=== PATIENT | female | born 1960 | race Caucasian/White ===

== ENCOUNTER 2016-11-08 17:07 | Inpatient (IN) ==
--- NOTE | 2016-11-08 17:17 | Emergency Department Note ---
Disposition Clinical Impression: NSTEMI (non-ST elevated myocardial infarction) Chest pain Qualifiers: Chest pain type: unspecified Qualified Code(s): R07.9 - Chest pain, unspecified Disposition: Admitted As Inpatient Condition: Fair General Adult HPI - General Chief complaint: ED Chest Pain Stated complaint: Chest Pain Time Seen by Provider: 11/08/16 17:12 - Related Data Home Medications Medication Instructions Recorded Confirmed Aspirin 09/15/16 Diclofenac Potassium 09/15/16 Gabapentin 09/15/16 GlipiZIDE XL (24 HR) 09/15/16 Iron 09/15/16 Lasix 09/15/16 Lisinopril 09/15/16 Metformin 09/15/16 Mupirocin 09/15/16 09/15/16 Naproxen 09/15/16 Ranitidine HCl 09/15/16 Victoza 2-Karsten 09/15/16 Zoloft 09/15/16 Previous Rx's Medication Instructions Recorded Fluconazole [Diflucan] 150 mg PO Q72H #2 tablet 09/15/16 Nitrofurantoin (BID) [Macrobid] 100 mg PO BID #14 capsule 09/15/16 Allergies Allergy/AdvReac Type Severity Reaction Status Date / Time Oxycodone AdvReac Anxiety Verified 05/21/15 10:43 Past Medical History - Past Medical History Medical history: Reports: diabetes, fibromyalgia, hyperlipidemia, hypertension, other (spinal stenosis; radiculopathy; sleep obstruction) Psychiatric history: Reports: depression - Social History Smoking Status: Never smoker Smokeless Tobacco Status: No Alcohol use: Reports: none Course Vital Signs Temperature 97.8 F 11/08/16 17:12 Pulse Rate 97 11/08/16 17:12 Respiratory Rate 20 11/08/16 17:12 Blood Pressure 120/62 11/08/16 17:12 O2 Sat by Pulse Oximetry 87 L 11/08/16 17:12 Temperature 97.8 F 11/08/16 17:12 Pulse Rate 93 11/08/16 18:45 Respiratory Rate 18 11/08/16 18:45 Blood Pressure 112/63 11/08/16 18:45 O2 Sat by Pulse Oximetry 94 L 11/08/16 18:45 Oxygen Delivery Oxygen Delivery Nasal Cannula Medical Decision Making - Lab Data Result diagrams: 11/08/16 17:24 11/08/16 17:24 Lab Results 11/08/16 11/08/16 11/08/16 Range/Units 17:24 17:24 17:24 WBC 12.5 H (4.3-11.1) K/mcL RBC 4.79 (3.82-4.97) M/mcL Hgb 13.4 (11.5-15.4) g/dL Hct 42.7 (35.3-44.9) % MCV 89.1 (83.0-100.0) fL MCH 28.0 (28.0-33.3) pg MCHC 31.4 L (31.6-35.5) g/dL RDW 13.2 (11.5-14.5) % Plt Count 236 (140-400) K/mcL MPV 9.1 L (9.4-12.4) fL Immature Gran % 0.4 (0-4) % Seg Neutrophils % 78.7 % Lymphocytes % 13.3 % Monocytes % 6.8 % Eosinophils % 0.5 % Basophils % 0.3 % Neutrophils # 9.9 H (1.6-8.9) K/mcL Lymphocytes # 1.7 (0.6-4.6) K/mcL Monocytes # 0.9 (0.0-1.3) K/mcL Eosinophils # 0.1 (0.0-0.6) K/mcL Basophils # 0.0 (0.0-0.2) K/mcL PT 12.4 H (9.4-12.1) Seconds INR 1.1 APTT 23.5 L (26.0-36.0) Seconds Sodium 138 (136-145) mEq/L Potassium 4.7 H (3.5-4.5) mEq/L Chloride 100 (98-109) mEq/L Carbon Dioxide 25 (19-29) mEq/L BUN 24 H (7-20) mg/dL Creatinine 0.93 (0.57-1.11) mg/dL Est GFR ( Amer) > 60 (> 60) Est GFR (Non-Af Amer) > 60 (> 60) BUN/Creatinine Ratio 26 (6-26) Glucose 274 H (70-99) mg/dL Calculated Osmolality 300 (280-300) Calcium 8.7 (8.6-10.8) mg/dL Troponin I (0-0.03) ng/mL 11/08/16 Range/Units 17:24 WBC (4.3-11.1) K/mcL RBC (3.82-4.97) M/mcL Hgb (11.5-15.4) g/dL Hct (35.3-44.9) % MCV (83.0-100.0) fL MCH (28.0-33.3) pg MCHC (31.6-35.5) g/dL RDW (11.5-14.5) % Plt Count (140-400) K/mcL MPV (9.4-12.4) fL Immature Gran % (0-4) % Seg Neutrophils % % Lymphocytes % % Monocytes % % Eosinophils % % Basophils % % Neutrophils # (1.6-8.9) K/mcL Lymphocytes # (0.6-4.6) K/mcL Monocytes # (0.0-1.3) K/mcL Eosinophils # (0.0-0.6) K/mcL Basophils # (0.0-0.2) K/mcL PT (9.4-12.1) Seconds INR APTT (26.0-36.0) Seconds Sodium (136-145) mEq/L Potassium (3.5-4.5) mEq/L Chloride (98-109) mEq/L Carbon Dioxide (19-29) mEq/L BUN (7-20) mg/dL Creatinine (0.57-1.11) mg/dL Est GFR ( Amer) (> 60) Est GFR (Non-Af Amer) (> 60) BUN/Creatinine Ratio (6-26) Glucose (70-99) mg/dL Calculated Osmolality (280-300) Calcium (8.6-10.8) mg/dL Troponin I 0.06 H* (0-0.03) ng/mL Critical Care Time Critical Care Time: Yes Total Critical Care Time: 30 Attestation: Patient presented with chest pain. EKG reviewed by me. Troponin elevated. Lovenox administered. Admitted to the medicine service. Attestation Statement - Attestation Attestation: I examined this patient and my medical decision-making was reviewed with the [employer] MACHINE FEEDER/PA/Advanced Practice Nurse/Resident Physician. I agree with the documented findings, disposition and treatment plan as described except to the extent set forth below. [id number] time provided Patient presents with chest pain. Family at bedside. Patient appears mildly anxious. EKG obtained and reviewed by me. Patient seen and evaluated in conjunction with resident physician Dr. Swartz 19:00: Troponin returned elevated. I did discuss this case with the admitting nurse practitioner who recommended either heparin or Lovenox. Lovenox, weight based, administered. Patient admitted 19:15: I fielded a call from the radiologist. Pulmonary emboli identified. Patient will be started on weight-based heparin. Disposition unchanged 19:23: Dr. Centeno aware of CTA results. Agreeable with plan. Bed management made aware
--- NOTE | 2016-11-08 17:26 | Emergency Department Note ---
Disposition Clinical Impression: NSTEMI (non-ST elevated myocardial infarction) Chest pain Qualifiers: Chest pain type: unspecified Qualified Code(s): R07.9 - Chest pain, unspecified Disposition: Admitted As Inpatient Condition: Fair Time of Disposition: 19:07 Chest Pain HPI - General Chief Complaint: ED Chest Pain Stated Complaint: Chest Pain Time Seen by Provider: 11/08/16 17:12 Vital Signs Reviewed: Yes Nursing Notes Reviewed: Yes - History of Present Illness HPI Narrative: Mrs. Lincoln, a 55yo female, presents from home via POV with bedside. Chief complaint: Chest pain. Onset 4-5 days ago and intermittent. Described as a sharp stabbing between her sternum and shoulder blades, lasting minutes before spontaneously resolving. Patient believes that breathing exercises help improve or hasten the resolution of her pain when it does occur. Worsened with exertion but present at rest. Patient has had radiation to the left arm intermittently as well as nausea. Denies dyspnea, cough, abdominal pain, vertigo. Patient states she has stress test approximately 2 years ago. PMH: obesity, HTN, HLD, diabetes type 2, current cellulitis, obstructive sleep apnea, fibromyalgia, chronic pain, lumbar stenosis, lumbar spondylosis, lumbar radiculopathy, chronic cervical pain, osteoarthritis, history can be any esophagitis. PSH: back surgery, spinal cord stimulator placed and removed, pain pump. Family histoyory: sister had CO at age of 52-53. - Related Data Home Medications Medication Instructions Recorded Confirmed Aspirin 09/15/16 Diclofenac Potassium 09/15/16 Gabapentin 09/15/16 GlipiZIDE XL (24 HR) 09/15/16 Iron 09/15/16 Lasix 09/15/16 Lisinopril 09/15/16 Metformin 09/15/16 Mupirocin 09/15/16 09/15/16 Naproxen 09/15/16 Ranitidine HCl 09/15/16 Victoza 2-Karsten 09/15/16 Zoloft 09/15/16 Previous Rx's Medication Instructions Recorded Fluconazole [Diflucan] 150 mg PO Q72H #2 tablet 09/15/16 Nitrofurantoin (BID) [Macrobid] 100 mg PO BID #14 capsule 09/15/16 Allergies Allergy/AdvReac Type Severity Reaction Status Date / Time Oxycodone AdvReac Anxiety Verified 05/21/15 10:43 All systems ED: reviewed and negative except as stated. Constitutional: Denies: fever, chills, weakness Eyes: Denies: vision change ENT ED: Denies: congestion Cardiovascular: Reports: chest pain, edema. Denies: palpitations, dyspnea on exertion, orthopnea, syncope Respiratory: Denies: cough, dyspnea, wheezes, hemoptysis Gastrointestinal: Reports: nausea. Denies: abdominal pain, vomiting, diarrhea, constipation Genitourinary: Denies: dysuria Musculoskeletal: Reports: back pain, neck pain, arthralgia, myalgia Integumentary: Reports: lesions (Left lower extremity cellulitis). Denies: rash , abrasion Neurological: Denies: headache, weakness, numbness, paresthesias, confusion, abnormal gait, vertigo Chest Pain PMH - Past Medical History Medical history: Reports: diabetes, fibromyalgia, hyperlipidemia, hypertension, other (spinal stenosis; radiculopathy; sleep obstruction) Psychiatric history: Reports: depression - Social History Smoking Status: Never smoker Alcohol use: Reports: none Physical Exam General: Patient is alert, oriented, and in no acute distress. HEENT: No facial asymmetry. Head is normocephalic and atraumatic. Oral mucosa moist. Trachea midline. Cardiovascular: Heart regular rate and rhythm without clicks, rubs, gallops, or murmurs. No JVD. PMI nondisplaced. Chest pain is not reproducible palpation. Respiratory: Symmetric chest rise with poor respiratory effort. Bilateral breath sounds are clear without wheezing, crackles, or rhonchi. Abdomen: Morbidly obese. Bowel sounds present normoactive x-4 quadrants. Abdomen is soft, nondistended, without guarding, and nontender. We will to assess organomegaly secondary to patient's body habitus. Skin: Warm, dry, intact. Patient is not diaphoretic. Psych: Patient's affect is appropriate for situation. Course Course Narrative: Patient lab work is concerning for elevated troponin. Patient's chest x-ray is negative for acute cardiopulmonary process. Patient's EKG is concerning for frequent PVCs. CTA chest is concerning for multiple PE. Chest CTA 11/08/16 17:19 IMPRESSION: 1. Multilobar pulmonary emboli involving the lobar and segmental branches of the right middle lobe, right lower lobe, left upper lobe, and left lower lobe. No CT evidence of right heart strain. 2. Diffuse heterogeneous attenuation of the lungs bilaterally, possibly secondary to mild air-trapping in the setting of low lung volumes. 3. There is a 7 mm right upper lobe nodule. Please see below for follow-up recommendations. 4. Ground-glass opacity in the right upper lobe, 1.6 x 1.2 cm in size. This can be followed on subsequent exams. 5. Borderline mediastinal adenopathy. This may be reactive but can be followed on subsequent exams. Findings were discussed with Eric Feliciano at 7:14 pm on 11/08/2016. RECOMMENDATIONS: Fleischner Society guidelines for follow-up and management of incidentally detected pulmonary nodules: Single Solid Nodule: Nodule size equals 6-8 mm In a low-risk patient, CT at 6-12 months, then consider CT at 18-24 months. In a high-risk patient, CT at 6-12 months, then CT at 18-24 months. Radiology 2017 http://pubs.[facility]na.org/doi/full/[email or web address]/[email or web address] D/ / 11/08/2016 19:18:22 Antoni Silva MD / chris Interpreting Provider: Antoni Silva MD Throughout her stay, patient denied chest pain. I spoke to the patient, her at bedside, and her multiple friends at bedside regarding her EKG findings, her mildly elevated troponin, and the meaning of the studies. I discussed my concerns about her story but also her EKG and laboratory findings as well as her multiple risks. She agrees for admission for continued workup, monitoring, and risk stratification. She has been accepted by the medicine service. Neither she nor her had any additional questions at this time. I spoke with the patient, her , and family bedside regarding her multiple PEs. I discussed the need for a heparin drip as well as the risks thereof. They agree for continued management and therapy. Patient is oriented accepted to the hospitalist service; he is been updated with the new findings and treatment strategy. Vital Signs Temperature 97.8 F 11/08/16 17:12 Pulse Rate 97 11/08/16 17:12 Respiratory Rate 20 11/08/16 17:12 Blood Pressure 120/62 11/08/16 17:12 O2 Sat by Pulse Oximetry 87 L 11/08/16 17:12 Temperature 97.9 F 11/08/16 20:48 Pulse Rate 95 11/08/16 20:48 Respiratory Rate 18 11/08/16 20:48 Blood Pressure 100/68 11/08/16 20:48 O2 Sat by Pulse Oximetry 92 L 11/08/16 20:48 Oxygen Delivery Oxygen Delivery Nasal Cannula Chest Pain - Medical Records Medical records reviewed: Yes I reviewed the patient's medical records. - Lab Data Lab results reviewed: Yes I reviewed the patient's lab results. Result diagrams: 11/08/16 17:24 11/08/16 17:24 Lab Results 11/08/16 11/08/16 11/08/16 Range/Units 17:24 17:24 17:24 WBC 12.5 H (4.3-11.1) K/mcL RBC 4.79 (3.82-4.97) M/mcL Hgb 13.4 (11.5-15.4) g/dL Hct 42.7 (35.3-44.9) % MCV 89.1 (83.0-100.0) fL MCH 28.0 (28.0-33.3) pg MCHC 31.4 L (31.6-35.5) g/dL RDW 13.2 (11.5-14.5) % Plt Count 236 (140-400) K/mcL MPV 9.1 L (9.4-12.4) fL Immature Gran % 0.4 (0-4) % Seg Neutrophils % 78.7 % Lymphocytes % 13.3 % Monocytes % 6.8 % Eosinophils % 0.5 % Basophils % 0.3 % Neutrophils # 9.9 H (1.6-8.9) K/mcL Lymphocytes # 1.7 (0.6-4.6) K/mcL Monocytes # 0.9 (0.0-1.3) K/mcL Eosinophils # 0.1 (0.0-0.6) K/mcL Basophils # 0.0 (0.0-0.2) K/mcL PT 12.4 H (9.4-12.1) Seconds INR 1.1 APTT 23.5 L (26.0-36.0) Seconds Sodium 138 (136-145) mEq/L Potassium 4.7 H (3.5-4.5) mEq/L Chloride 100 (98-109) mEq/L Carbon Dioxide 25 (19-29) mEq/L BUN 24 H (7-20) mg/dL Creatinine 0.93 (0.57-1.11) mg/dL Est GFR ( Amer) > 60 (> 60) Est GFR (Non-Af Amer) > 60 (> 60) BUN/Creatinine Ratio 26 (6-26) Glucose 274 H (70-99) mg/dL Calculated Osmolality 300 (280-300) Calcium 8.7 (8.6-10.8) mg/dL Troponin I (0-0.03) ng/mL 11/08/16 Range/Units 17:24 WBC (4.3-11.1) K/mcL RBC (3.82-4.97) M/mcL Hgb (11.5-15.4) g/dL Hct (35.3-44.9) % MCV (83.0-100.0) fL MCH (28.0-33.3) pg MCHC (31.6-35.5) g/dL RDW (11.5-14.5) % Plt Count (140-400) K/mcL MPV (9.4-12.4) fL Immature Gran % (0-4) % Seg Neutrophils % % Lymphocytes % % Monocytes % % Eosinophils % % Basophils % % Neutrophils # (1.6-8.9) K/mcL Lymphocytes # (0.6-4.6) K/mcL Monocytes # (0.0-1.3) K/mcL Eosinophils # (0.0-0.6) K/mcL Basophils # (0.0-0.2) K/mcL PT (9.4-12.1) Seconds INR APTT (26.0-36.0) Seconds Sodium (136-145) mEq/L Potassium (3.5-4.5) mEq/L Chloride (98-109) mEq/L Carbon Dioxide (19-29) mEq/L BUN (7-20) mg/dL Creatinine (0.57-1.11) mg/dL Est GFR ( Amer) (> 60) Est GFR (Non-Af Amer) (> 60) BUN/Creatinine Ratio (6-26) Glucose (70-99) mg/dL Calculated Osmolality (280-300) Calcium (8.6-10.8) mg/dL Troponin I 0.06 H* (0-0.03) ng/mL - Radiology Data Radiology results reviewed: Yes I reviewed the patient's radiology results. - EKG Data EKG attestation: Yes I reviewed and interpreted this EKG. EKG results narrative: EKG dated 2016 at 17:17 interpreted as sinus tachycardia with a rate of 112. Short LA of 113. QRS 97, QT/QTC 337/403. Normal axis. Multifocal PVCs. Baseline artifact. Previous EKG dated 11/03/2016 does not show PVCs. Heart Score - Score History: Slightly Suspicious EKG: Non Specific repolarisation Disturbance Age: 45-65 Risk Factors: Equal/Greater than 3 risk factor or history of atherosclerotic disease Troponin: Less than normal limit HEART Score Total: 4
[2016-11-08 17:32] LABS: Basophils % 0.3 %; Eosinophils # 0.1 K/mcL (0.0-0.6); Eosinophils % 0.5 %; Hematocrit 42.7 % (35.3-44.9); Hemoglobin 13.4 g/dL (11.5-15.4); Immature Granulocytes % 0.4 % (0-4); Lymphocytes # 1.7 K/mcL (0.6-4.6); Lymphocytes % 13.3 %; Mean Corpuscular HGB Conc 31.4 g/dL (31.6-35.5); Mean Corpuscular Volume 89.1 fL (83.0-100.0); Mean Platelet Volume 9.1 fL (9.4-12.4); Monocytes # 0.9 K/mcL (0.0-1.3); Monocytes % 6.8 %; Neutrophils # 9.9 K/mcL (1.6-8.9); Platelet Count 236 K/mcL (140-400); Red Blood Count 4.79 M/mcL (3.82-4.97); Red Cell Distribution Width 13.2 % (11.5-14.5); Segmented Neutrophils % 78.7 %
[2016-11-08 17:39] LABS: INR 1.1; Prothrombin Time 12.4 Seconds (9.4-12.1)
[2016-11-08 17:41] LABS: Activated Partial Thrombo Time 23.5 Seconds (26.0-36.0)
[2016-11-08 17:46] LABS: BUN/Creatinine Ratio 26 (6-26); Blood Urea Nitrogen 24 mg/dL (7-20); Calcium 8.7 mg/dL (8.6-10.8); Carbon Dioxide 25 mEq/L (19-29); Chloride 100 mEq/L (98-109); Glucose 274 mg/dL (70-99); Osmolality,Calculated 300 (280-300); Potassium 4.7 mEq/L (3.5-4.5); Sodium 138 mEq/L (136-145); eGFR For African Americans > 60 (> 60); eGFR For Non-African Americans > 60 (> 60)
[2016-11-08] MEDS ORDERED: Aspirin 325 MG TABLET PO ONE (17:58)
[2016-11-08] MEDS ORDERED: *HR* Enoxaparin 150 MG/ML SYRINGE SQ STA (19:00)
[2016-11-08] MEDS ORDERED: *HR* Heparin 5,000 UNIT/ML VIAL IVP PRN ×2 (19:15→19:29)
[2016-11-08] MEDS ORDERED: Heparin 25,000 UNIT/500 ML D5W 25,000 UNIT/500 ML MLS IVC SCH (19:15)
[2016-11-08] MEDS ORDERED: *HR* Heparin 5,000 UNIT/ML VIAL IVP ONE (19:29)
[2016-11-08] MEDS: Heparin 25,000 UNIT/500 ML D5W 25,000 UNIT/500 ML MLS IVC SCH (19:46)
[2016-11-08] MEDS ORDERED: Acetaminophen 325 MG TABLET PO PRN (21:47)
[2016-11-08] MEDS ORDERED: Naloxone 0.4 MG/ML INJ IVP PRN (21:47)
[2016-11-08] MEDS ORDERED: Ondansetron 4 MG/2 ML VIAL IVP PRN (21:47)
[2016-11-08] MEDS ORDERED: D5% in Water 1,000 ML IV PRN (22:00)
[2016-11-08] MEDS ORDERED: *HR* Dextrose 50 % in Water (Syg) 50 ML SYRINGE IVP PRN (22:00)
[2016-11-08] MEDS ORDERED: Dextrose Gel 15 GM PO PRN ×2 (22:00)
--- NOTE | 2016-11-08 22:00 | Internal Med History&Physical ---
Date of Encounter: 11/08/16 Time of Encounter: 21:58 Assessment and Plan (1) Pulmonary emboli Current visit: Yes Status: Acute 1 patient has been experiencing increasing chest pain as well as shortness of breath for past [address] scan of her chest did reveal multilobar pulmonary emboli involving lobar and segmental branches of the right middle lobe right lower lobe left upper lobe and left lower lobe with no CT evidence of right heart strain. We will continue with heparin drip per protocol 2 last echo was in 2014 with EF of 60% we will obtain cardiac echo 3 continuous cardiac monitoring 4 oxygen as needed and maintain SPO2 greater than 92% 5 patient was on heparin in the ER. Will obtain thrombophilia workup as outpatient Qualifiers: Pulmonary embolism type: other Chronicity: acute Acute cor pulmonale presence: without acute cor pulmonale Qualified Code(s): I26.99 - Other pulmonary embolism without acute cor pulmonale (2) Elevated troponin Current visit: Yes Status: Acute 1 patient presented with chest pain or shortness of breath. First cardiac troponin was elevated at 0.06. CT did reveal a pulmonary emboli, suspect this is the cause of elevated troponin. However we will continue to trend cardiac troponin 2 she is on heparin drip will continue 3 we will obtain cardiac echo 4 continuous cardiac monitoring (3) Diabetes mellitus Current visit: Yes Status: Acute 1 patient is on oral antidiabetics. We will hold for now place on Accu-Cheks before meals and at bedtime with sliding scale as needed 2 diabetic diet Qualifiers: Diabetes mellitus type: type 2 Diabetes mellitus complication status: without complication Diabetes mellitus jail insulin use: without jail use Qualified Code(s): E11.9 - Type 2 diabetes mellitus without complications (4) HTN (hypertension) Current visit: Yes Status: Acute 1 we will continue with home medications: As maintain systolic less than 140 Qualifiers: Hypertension type: essential hypertension Qualified Code(s): I10 - Essential (primary) hypertension (5) Chronic radicular lumbar pain Current visit: Yes Status: Acute 1 patient has chronic back pain we will continue with home pain medications as well as patient's pain pump Internal Medicine - H&P: HPI Chief complaint: SOB,CP Admitted From: Emergency Dept Plans for Post Hospital Care: Home History of present illness: Ms. Lincoln is a 55 year old female past medical history of diabetes hypertension hyperlipidemia obstructive sleep apnea fibromyalgia and chronic pain osteoarthritis pain pump current cellulitis. According to the patient for the past 4 days she has been experiencing sharp stabbing pain originating between her shoulder blades radiating to her mid sternal chest. The pain is 10 over 10 associated symptoms of shortness of breath nausea diaphoresis. The pain is aggravated by exertion and relieved with rest. She denies fevers chills abdominal pain diarrhea or vertigo or palpitations. This morning the patient, and she immediately experienced the pain however it continued even with rest she went to the ER. According to ER records first cardiac troponin was 0.06 EKG did demonstrate frequent PVCs chest x-ray was negative for any acute coronary process CTA was obtained which did reveal multilobar pulmonary emboli involving lobar and segmental branches of the right middle lobe right lower lobe left upper lobe and left lower lobe. At that time there is no CT evidence of right heart strain. The patient was subsequently started on IV heparin and has been admitted for further workup and evaluation. Presently the patient denies any chest pain or discomfort. According to patient she has been much more mobile recently because she has been moving to a new home. She normally is very sedentary due to her history of chronic pain. She denies any injuries to her lower extremities however she does have an active cellulitis infection patient is nonsmoker she denies any thrombophilla or family hx of thrombophillia. She does have lower extremity edema which she states is chronic there are no palpable cords She did have an echo and stress test 2015 stress was negative for any ischemic or infarct echo EF of 60% with moderate diastolic dysfunction. Presently she is hemodynamically stable I reviewed this case with Dr. Centeno who agrees with plan Past Med Surg Social Fam HX - Past Medical History Medical history: diabetes, fibromyalgia, hyperlipidemia, hypertension, other ( spinal stenosis; radiculopathy; sleep obstruction) Psychiatric history: depression - Past Surgical History Surgical History: other - Social History Smoking Status: Never smoker Smokeless Tobacco Status: No Alcohol use: none Drug use: none - Family History Father Name: Roosevelt Lee Age at : 72 Cause of : massive heart attack Internal Medicine - H&P: Meds Aspirin 09/15/16 [History] Diclofenac Potassium 09/15/16 [History] Fluconazole [Diflucan] 150 mg PO Q72H #2 tablet 09/15/16 [Rx] Gabapentin 09/15/16 [History] GlipiZIDE XL (24 HR) 09/15/16 [History] Iron 09/15/16 [History] Lasix 09/15/16 [History] Lisinopril 09/15/16 [History] Metformin 09/15/16 [History] Mupirocin 09/15/16 [History] Naproxen 09/15/16 [History] Nitrofurantoin (BID) [Macrobid] 100 mg PO BID #14 capsule 09/15/16 [Rx] Ranitidine HCl 09/15/16 [History] Victoza 2-Karsten 09/15/16 [History] Zoloft 09/15/16 [History] Allergies Oxycodone Adverse Reaction (Verified 05/21/15 10:43) Anxiety All Systems PM: A 10-system review of systems was performed and is negative for pertinent findings except as documented above in the HPI. - Constitutional Constitutional: fatigue - Cardiovascular Cardiovascular ROS IM: chest pain, dyspnea on exertion, edema - Respiratory Respiratory: dyspnea on exertion - Gastrointestinal Gastrointestinal: no abdominal pain, no diarrhea, no hematemesis, no hematochezia, no melena, no nausea, no vomiting - Genitourinary Genitourinary: no change in urinary stream, no dysuria, no flank pain, no hematuria - Musculoskeletal Musculoskeletal ROS IM: arthralgias, back pain, myalgias - Neurological Neurological ROS: no confusion, no convulsions, no focal weakness, no numbness, no tingling, no tremor(s) - Constitutional Vitals: Temp Pulse Resp BP Pulse Ox 97.9 F 95 18 100/68 92 L 11/08/16 20:48 11/08/16 20:48 11/08/16 20:48 11/08/16 20:48 11/08/16 20:48 General appearance: Present: A&O X 3, morbidly obese - Head Head exam: Present: atraumatic, normocephalic - Eye Eye exam: Present: PERRL, conjuntiva pink, sclera anicteric Pupils: Present: PERRL - Neck Neck exam general surgery: Present: supple, trachea midline. Absent: lymphadenopathy - Respiratory Respiratory exam: Present: CTAB. Absent: accessory muscle use, rales, rhonchi, wheezes - Cardiovascular Cardiovascular exam: Present: RRR, +S1, +S2. Absent: diastolic murmur, gallop, rubs, systolic murmur - GI/Abdominal GI/Abdominal exam: Present: normal bowel sounds, soft, no peritoneal signs. Absent: distended, tenderness - Extremities Exam Extremities exam: Present: pedal edema, warm, radial pulses palpable and symetrical. Absent: calf tenderness, cyanotic - Neurological Exam Neurological exam: Present: CN II-XII intact, oriented X3, no focal deficits. Absent: pronater drift, facial droop, speech deficit - Skin Skin exam: Present: dry, intact Internal Med - H&P Results - Labs CBC & Chem 7: 11/08/16 17:24 11/08/16 17:24 - Diagnostic Studies Other Images Additional comments: Chest CTA 11/08/16 17:19 IMPRESSION: 1. Multilobar pulmonary emboli involving the lobar and segmental branches of the right middle lobe, right lower lobe, left upper lobe, and left lower lobe. No CT evidence of right heart strain. 2. Diffuse heterogeneous attenuation of the lungs bilaterally, possibly secondary to mild air-trapping in the setting of low lung volumes. 3. There is a 7 mm right upper lobe nodule. Please see below for follow-up recommendations. 4. Ground-glass opacity in the right upper lobe, 1.6 x 1.2 cm in size. This can be followed on subsequent exams. 5. Borderline mediastinal adenopathy. This may be reactive but can be followed on subsequent exams. Findings were discussed with Eric Feliciano at 7:14 pm on 11/08/2016. RECOMMENDATIONS: Fleischner Society guidelines for follow-up and management of incidentally detected pulmonary nodules: Single Solid Nodule: Nodule size equals 6-8 mm In a low-risk patient, CT at 6-12 months, then consider CT at 18-24 months. In a high-risk patient, CT at 6-12 months, then CT at 18-24 months. Radiology 2017 http://pubs.[facility].org/doi/full/10.1148/[email or web address] D/ / 11/08/2016 19:18:22 Antoni Silva MD / chris Interpreting Provider: Antoni Silva MD
[2016-11-08 23:30] LABS: Magnesium 1.4 mg/dL (1.6-2.6)
[2016-11-08] MEDS: Insulin LISPRO 300 UNITS/3 ML VIAL SQ SCH (23:45)
--- NOTE | 2016-11-09 00:04 | Event Note ---
Date of Encounter: 11/09/16 Time of Encounter: 00:02 Patient seen and examined with practitioner. Patient presents with solid masses pulmonary embolism. She is hemodynamically stable. Suspect sedentary life is the cause. She says that she is sitting down approximately 50% of the time. She is morbidly obese with hip problems requiring injections. She had an injection last month. Patient has been started on heparin drip. Because provoking factor is not very clear with asking hematology/oncology to see the patient to decide on duration of anticoagulation therapy. Patient is up-to- date with her screening. Last mammogram, Pap smear, colonoscopy were unremarkable.
[2016-11-09 00:57] LABS: Basophils # 0.1 K/mcL (0.0-0.2); Basophils % 0.4 %; Eosinophils % 0.1 %; Hematocrit 40.4 % (35.3-44.9); Hemoglobin 12.4 g/dL (11.5-15.4); Immature Granulocytes % 0.3 % (0-4); Immature Platelets 3.2 % (1.1-6.1); Lymphocytes # 2.9 K/mcL (0.6-4.6); Lymphocytes % 23.3 %; Mean Corpuscular HGB Conc 30.7 g/dL (31.6-35.5); Mean Corpuscular Hemoglobin 27.4 pg (28.0-33.3); Mean Corpuscular Volume 89.4 fL (83.0-100.0); Mean Platelet Volume 9.2 fL (9.4-12.4); Monocytes # 0.7 K/mcL (0.0-1.3); Monocytes % 5.8 %; Neutrophils # 8.6 K/mcL (1.6-8.9); Platelet Count 248 K/mcL (140-400); Red Blood Count 4.52 M/mcL (3.82-4.97); Red Cell Distribution Width 13.4 % (11.5-14.5); Segmented Neutrophils % 70.1 %
[2016-11-09 01:12] LABS: BUN/Creatinine Ratio 27 (6-26); Blood Urea Nitrogen 22 mg/dL (7-20); Calcium 8.4 mg/dL (8.6-10.8); Carbon Dioxide 25 mEq/L (19-29); Chloride 102 mEq/L (98-109); Chol/HDL Ratio 3.5 (0-4.9); Cholesterol 109 mg/dL (< 200); Glucose 183 mg/dL (70-99); HDL Cholesterol 31 mg/dL (40-59); Osmolality,Calculated 294 (280-300); Potassium 4.2 mEq/L (3.5-4.5); Sodium 138 mEq/L (136-145); eGFR For African Americans > 60 (> 60); eGFR For Non-African Americans > 60 (> 60)
[2016-11-09 01:21] LABS: LDL Cholesterol,Calculated 53 mg/dL (0-99); Triglycerides 124 mg/dL (< 150)
[2016-11-09] MEDS: Aspirin 81 MG TAB.CHEW PO SCH (08:10)
[2016-11-09] MEDS: Gabapentin 400 MG CAPSULE PO SCH ×3 (08:10→21:19)
[2016-11-09] MEDS: Insulin LISPRO 300 UNITS/3 ML VIAL SQ SCH ×4 (08:11→21:20)
[2016-11-09] MEDS: Famotidine 20 MG TABLET PO SCH ×2 (08:11→17:01)
[2016-11-09] MEDS: Furosemide 40 MG TABLET PO SCH (08:11)
[2016-11-09] MEDS: *HR* Heparin 5,000 UNIT/ML VIAL IVP PRN (08:14)
[2016-11-09] MEDS: IRON PO SCH ×2 (10:51→21:20)
[2016-11-09] MEDS: Heparin 25,000 UNIT/500 ML D5W 25,000 UNIT/500 ML MLS IVC SCH (10:51)
--- NOTE | 2016-11-09 11:06 | Internal Med Progress Note ---
Date of Encounter: 11/09/16 Time of Encounter: 09:35 - Assessment and plan (1) Pulmonary emboli Current Visit: Yes Status: Acute Assessment and plan: Sub-massive without evidence of RH strain CT scan of her chest did reveal multilobar pulmonary emboli involving lobar and segmental branches of the right middle lobe right lower lobe left upper lobe and left lower lobe with no CT evidence of right heart strain. We will continue with heparin drip per protocol Slightly elevated troponin on admission 006, now 0.03 today, possibly from demand ischemia ECHO 2014 with with EF of 60% Follow repeat ECHO Continue heparin drip Transition to po once able to confirm insurance and co-pays , patient prefers CAROLE Continue telemetry and pulse Ox Qualifiers: Pulmonary embolism type: other Chronicity: acute Acute cor pulmonale presence: without acute cor pulmonale Qualified Code(s): I26.99 - Other pulmonary embolism without acute cor pulmonale (2) Elevated troponin Current Visit: Yes Status: Resolved Assessment and plan: Resolved (3) HTN (hypertension) Current Visit: Yes Status: Chronic Assessment and plan: Controlled, continue current meds Qualifiers: Hypertension type: essential hypertension Qualified Code(s): I10 - Essential (primary) hypertension (4) Diabetes mellitus Current Visit: Yes Status: Chronic Assessment and plan: Diet controlled supposedly Continue sliding scale Check A1C Qualifiers: Diabetes mellitus type: type 2 Diabetes mellitus complication status: without complication Diabetes mellitus long term care phlebotomist insulin use: without chcf use Qualified Code(s): E11.9 - Type 2 diabetes mellitus without complications - Subjective Interval history: Seen and examined at bedside Denies new complains Slight improvement in SOB 55 Y/O F with Morbid Obesity, HTN, DM Admitted and managed for sub-massive PE without right heart strain - Constitutional Vitals: Temp Pulse Resp BP Pulse Ox 97.5 F L 95 18 156/96 92 L 11/09/16 07:43 11/09/16 07:43 11/09/16 07:43 11/09/16 07:43 11/09/16 07:43 General appearance: Present: A&O X 3, morbidly obese, no acute distress - Head Head exam: Present: atraumatic, normocephalic - Eye Eye exam: Present: PERRL, conjuntiva pink, sclera anicteric Pupils: Present: PERRL - Neck Neck exam general surgery: Present: supple, trachea midline. Absent: lymphadenopathy - Respiratory Respiratory exam: Present: CTAB. Absent: accessory muscle use, rales, rhonchi, wheezes - Cardiovascular Cardiovascular exam: Present: RRR, +S1, +S2. Absent: diastolic murmur, gallop, rubs, systolic murmur - GI/Abdominal GI/Abdominal exam: Present: normal bowel sounds, soft, no peritoneal signs. Absent: distended, tenderness - Extremities Exam Additional comments: Chronic venous congestion with stasis dermatitis, no pedal edema - Neurological Exam Neurological exam: Present: alert, CN II-XII intact, oriented X3, no focal deficits. Absent: pronater drift, facial droop, speech deficit - Skin Skin exam: Present: dry Internal Medicine: Result - Labs CBC & Chem 7: 11/09/16 00:30 11/09/16 00:30 Labs: Short CBC 11/09/16 Range/Units 00:30 WBC 12.3 H (4.3-11.1) K/mcL Hgb 12.4 (11.5-15.4) g/dL Hct 40.4 (35.3-44.9) % Plt Count 248 (140-400) K/mcL Neutrophils # 8.6 (1.6-8.9) K/mcL BMP 11/09/16 00:30 Sodium 138 Potassium 4.2 Chloride 102 Carbon Dioxide 25 BUN 22 H Creatinine 0.82 Glucose 183 H Calcium 8.4 L Cardiac Enzymes 11/09/16 11/09/16 Range/Units 00:30 06:33 Troponin I 0.05 H* 0.03 (0-0.03) ng/mL - ABG Interpretation ABG results: PT/INR, D-dimer PT 12.4 Seconds (9.4-12.1) H 11/08/16 17:24 Consult Discharge Plan - Plan Referrals: Kwabena Mattson MD [Primary Care Provider] - (web request sent on11/09/16)
--- NOTE | 2016-11-09 21:20 | ECHO - Doppler Report ---
Echocardiogram Name: Mirella Lincoln Date of Study: 11/09/2016 Date: 1960 Ht: 63.0 in Medical Record#: [id number] Age: 55 Wt: 287.0 lb Gender: Female BSA: 2.25 Order #: [id number] Location: [facility] Room #: 2A33 Reading Physician: Mandeep Colunag DO, JULIANN, BANG MAGALLANES Loop Drier Operator: Leilani Gresham RDCS Ordering Physician: Charito Weir CNP Primary Physician: Kwabena Mattson M.D. Indications: Pulmonary embolus Impressions: Technically sub-optimal due to body habitus. LVEF 60%. Normal LV chamber size, wall thickness and function. Mild left ventricular diastolic dysfunction. Atypical septal motion of unclear etiology. Mildly dilated right ventricle with normal appearing function. Mild pulmonary hypertension. No significant valvular dysfunction. Left Ventricular Wall Motion: Rest Echo Findings All wall segments showed normal motion. Findings: Study Quality * Technically sub-optimal due to body habitus. ECG Findings * Normal sinus rhythm. Left Ventricle * LVEF 60%. * Normal LV chamber size, wall thickness and function. * Mild left ventricular diastolic dysfunction. * Atypical septal motion of unclear etiology. Right Ventricle * Mildly dilated right ventricle with normal appearing function. Left Atrium * Normal left atrial size. Right Atrium * Moderately dilated right atrium. Interatrial Septum * Interatrial septum not well evaluated. Aortic Valve * Aortic valve not well visualized. * No aortic stenosis. * No aortic regurgitation. Mitral Valve * Normal mitral valve structure and function. * No mitral regurgitation. * No mitral stenosis. Tricuspid Valve * Normal tricuspid valve structure and function. * Trace tricuspid regurgitation. * Mild pulmonary hypertension. Pulmonic Valve * Pulmonic valve is not well visualized. * No pulmonic regurgitation. Aorta * Normally sized aortic root. Pericardium * The pericardium appears normal. IVC * Normal IVC dimensions and inspiratory collapse. Pulmonary Artery * Pulmonary artery not well visualized. History Hypertension Diabetes Hypercholesteremia Family History of CAD 05-16-15 a Previous Echo was performed. Measurements: BP: 117/ 74 2D Normal Values RVIDd: 3.30 cm <2.7 cm IVSd: .90 cm 0.6 - 1.0 cm LVIDd: 5.00 cm 3.7 - 5.6 cm LVPWd: 1.00 cm 0.6 - 1.1 cm LVIDs: 3.60 cm 1.5 - 3.6 cm AO: 2.70 cm < 4.0 cm LA: 3.90 cm 2.0 - 4.0cm %FS: 28.00 cm >25 % LVOT Diam: 1.90 cm LA volume: 42 Mitral Valve Peak E:.68 m/sec Peak A:.71 m/sec E/A Ratio:1 Peak E' Lat [place]:8.29 cm/s Peak E' Med [place]:10 cm/s E/E' Lat Ratio:8.2 E/E' Med Ratio:6.8 Tricuspid Valve TV Regurg Peak Grad: 34.00mmHg TV Regurg Peak [place]: 2.92m/sec Updated by Mandeep Colunga DO, JULIANN, SONA, BANG on 11/09/2016 9:14:59 PM electronically signed on 11/09/2016 9:15:54 PM with status of Final Wall Motion Mosher: 1=Normal, 2=Hypokinesis, 3=Akinesis, 4=Dyskinesis, 5=Aneurysmal, 6=Hyperkinetic, X=Not Visualized (Blank)=Missing
[2016-11-10] MEDS: *HR* Heparin 5,000 UNIT/ML VIAL IVP PRN (00:06)
[2016-11-10] MEDS: Heparin 25,000 UNIT/500 ML D5W 25,000 UNIT/500 ML MLS IVC SCH (03:47)
[2016-11-10 05:32] LABS: Basophils % 0.3 %; Hematocrit 37.1 % (35.3-44.9); Hemoglobin 11.6 g/dL (11.5-15.4); Immature Granulocytes % 0.3 % (0-4); Lymphocytes # 2.5 K/mcL (0.6-4.6); Lymphocytes % 24.7 %; Mean Corpuscular HGB Conc 31.3 g/dL (31.6-35.5); Mean Corpuscular Volume 89.4 fL (83.0-100.0); Mean Platelet Volume 9.1 fL (9.4-12.4); Monocytes # 0.7 K/mcL (0.0-1.3); Monocytes % 6.9 %; Neutrophils # 6.7 K/mcL (1.6-8.9); Platelet Count 187 K/mcL (140-400); Red Blood Count 4.15 M/mcL (3.82-4.97); Red Cell Distribution Width 13.5 % (11.5-14.5); Segmented Neutrophils % 67.8 %
[2016-11-10 05:46] LABS: BUN/Creatinine Ratio 23 (6-26); Blood Urea Nitrogen 19 mg/dL (7-20); Calcium 8.3 mg/dL (8.6-10.8); Carbon Dioxide 30 mEq/L (19-29); Chloride 101 mEq/L (98-109); Glucose 187 mg/dL (70-99); Osmolality,Calculated 295 (280-300); Potassium 4.2 mEq/L (3.5-4.5); Sodium 139 mEq/L (136-145); eGFR For African Americans > 60 (> 60); eGFR For Non-African Americans > 60 (> 60)
[2016-11-10] MEDS: Aspirin 81 MG TAB.CHEW PO SCH (08:23)
[2016-11-10] MEDS: Gabapentin 400 MG CAPSULE PO SCH ×3 (08:23→22:29)
[2016-11-10] MEDS: Famotidine 20 MG TABLET PO SCH ×2 (08:24→15:59)
[2016-11-10] MEDS: Furosemide 40 MG TABLET PO SCH (08:24)
[2016-11-10] MEDS: Insulin LISPRO 300 UNITS/3 ML VIAL SQ SCH ×4 (08:25→22:29)
[2016-11-10] MEDS: IRON PO SCH ×2 (09:02→22:30)
--- NOTE | 2016-11-10 09:52 | Discharge Summary ---
Date of Encounter: 11/10/16 Time of Encounter: 09:52 - Discharge Diagnosis (1) Pulmonary emboli Priority: Primary Status: Acute Qualifiers: Pulmonary embolism type: other Chronicity: acute Acute cor pulmonale presence: without acute cor pulmonale Qualified Code(s): I26.99 - Other pulmonary embolism without acute cor pulmonale (2) Elevated troponin Priority: Secondary Status: Resolved (3) HTN (hypertension) Priority: Secondary Status: Chronic Qualifiers: Hypertension type: essential hypertension Qualified Code(s): I10 - Essential (primary) hypertension (4) Diabetes mellitus Priority: Secondary Status: Chronic Qualifiers: Diabetes mellitus type: type 2 Diabetes mellitus complication status: without complication Diabetes mellitus custodial insulin use: without continuous churn buttermaker use Qualified Code(s): E11.9 - Type 2 diabetes mellitus without complications - Discharge Medications Prescriptions: Rivaroxaban [Xarelto] 15 mg PO BID #42 tablet Rivaroxaban [Xarelto] 20 mg PO DAILY #30 tablet Home Medications: Aspirin [Lo-Dose Aspirin EC] 81 mg PO DAILY 09/15/16 [History] Ferrous Sulfate [Iron] 325 mg PO DAILY 09/15/16 [History] Furosemide [Lasix] 40 mg PO DAILY 09/15/16 [History] Gabapentin [Neurontin] 400 mg PO TID 09/15/16 [History] GlipiZIDE [Glipizide Xl] 5 mg PO DAILY 09/15/16 [History] Liraglutide [Victoza 2-Karsten] 1.2 mg SQ QWEEK 09/15/16 [History] Lisinopril [Zestril] 2.5 mg PO DAILY 09/15/16 [History] Metformin [Glucophage] 1,000 mg PO BID 09/15/16 [History] Ranitidine HCl [Acid Drum Barker Operator] 150 mg PO BID 09/15/16 [History] Sertraline [Zoloft] 50 mg PO DAILY 09/15/16 [History] Diclofenac Sodium [Voltaren] 50 mg PO TID 11/09/16 [History] Meloxicam [Mobic] 15 mg PO DAILY 11/09/16 [History] Rivaroxaban [Xarelto] 15 mg PO BID #42 tablet 11/10/16 [Rx] Rivaroxaban [Xarelto] 20 mg PO DAILY #30 tablet 11/10/16 [Rx] Allergies/Adverse Reactions: Allergies adhesive tape Allergy (Verified 11/09/16 10:40) Rash Oxycodone Adverse Reaction (Verified 05/21/15 10:43) Anxiety Procedures/tests Complete & Pending: Procedures Performed prior 72 hours Category Date Time Status EV echocardiogram Routine Y 11/08/16 21:53 Completed Date of admission: 11/08/16 21:47 Primary care physician: Kwabena Mattson MD Consults: 11/08/16 23:02 Consult to Oncology [CONS] Routine Consulting Provider: On[facility] Reason for Consult: New PE requiring anticoagulations Time Notified: 23:04 Call Completed: No 11/10/16 07:57 Consult to Case Management [CONS] Stat Comment: For oral anticoagulation-Xarelto... Discharging clinician: Ariel Welsh Anticipated date of discharge: 11/10/16 - Patient Status Disposition: Home, Self-Care Condition: Fair Functional capacity at discharge: independent ambulation Overall status at discharge: patient is progressing back to baseline - Discharge Instructions Follow Up With: Kwabena Mattson MD [Primary Care Provider] - (web request sent on11/09/16) - Diet and Activity Activity: resume usual activities as tolerated, wear oxygen at all times Diet: diabetic diet, low salt diet Interval History: See below Hospital course: Ms. Lincoln is a 55 year old female 55 Y/O F with Morbid Obesity, HTN, DM She presented with SOB Findings on admission significant for tachypnea, tachycardia and hypoxia CT scan of her chest did reveal multilobar pulmonary emboli involving lobar and segmental branches of the right middle lobe right lower lobe left upper lobe and left lower lobe with no CT evidence of right heart strain. She had leukocytosis which was possibly related to stress, her WBC has resolved and back to baseline without treatment Slightly elevated troponin on admission 006, decreased to 0.03 today, possibly from demand ischemia ECHO showed LVEF of 60%, normal LV size, wall thickness and function, mild LVDD , Atypical septal motion of unclear etiology, mildy dilated RV with normal appearing function, no significant valvular dysfunction, mild Pulm HTN. She was started on heparin drip and continued until discharge. CLAIMS ADJUSTER SUPERVISOR has confirmed copay of Xarelto with patient, she is discharged home on Xarelto, which she preferred when given options for anticoagulation This was an unprovoked PE and patient will need 3-6 months of anticoagulaiton Thrombophilia work up in-patient will not change the management Follow up with PCP Her other chronic medical conditions are stable, resume home meds Lifestyle modification encouraged for obesity Plan of care discussed with patient and verbalizes understanding - Time Spent with Patient Total time spent providing and/or coordinating discharge services: Greater than 30 minutes (45 minutes spent on chart review, face to face encounter with patient, medication reconciliaion, arranging for CAROLE with outsole caser and documentation) - Constitutional Vitals: Temp Pulse Resp BP Pulse Ox 97.7 F 75 18 101/63 95 11/10/16 07:51 11/10/16 07:51 11/10/16 07:51 11/10/16 07:51 11/10/16 09:14 General appearance: Present: A&O X 3, morbidly obese, pleasant, no acute distress - Head Head exam: Present: atraumatic, normocephalic - Eye Eye exam: Present: PERRL, conjuntiva pink, sclera anicteric Pupils: Present: PERRL - Neck Neck exam general surgery: Present: supple, trachea midline. Absent: lymphadenopathy - Respiratory Respiratory exam: Present: CTAB. Absent: accessory muscle use, rales, rhonchi, wheezes - Cardiovascular Cardiovascular exam: Present: RRR, +S1, +S2. Absent: diastolic murmur, gallop, rubs, systolic murmur - GI/Abdominal GI/Abdominal exam: Present: normal bowel sounds, soft, no peritoneal signs. Absent: distended, tenderness - Extremities Exam Extremities exam: Present: warm, radial pulses palpable and symetrical. Absent : calf tenderness, cyanotic, pedal edema Additional comments: Chronic venous congestion with stasis - Neurological Exam Neurological exam: Present: CN II-XII intact, oriented X3, no focal deficits. Absent: pronater drift, facial droop, speech deficit - Skin Skin exam: Present: dry, intact
--- NOTE | 2016-11-10 13:58 | Oncology Inp Consult Note ---
<Leana Workman E - Last Filed: 11/10/16 16:09> Date of Encounter: 11/10/16 Time of Encounter: 02:00 Assessment and Plan (1) Pulmonary emboli Status: Acute Qualifiers: Pulmonary embolism type: other Chronicity: acute Acute cor pulmonale presence: without acute cor pulmonale Qualified Code(s): I26.99 - Other pulmonary embolism without acute cor pulmonale - Data of Consult Patient: new to practice Consult date: 11/10/16 Requesting Physician: Ariel Welsh MD Primary Care Provider: Kwabena Mattson MD - Consult Narrative Reason for consult: Pulmonary embolism History of present illness: Ms. Lincoln is a 55 year old female who was recently admitted to [facility] through the emergency department for shortness of breath and chest pain. The patient reports that she has been having increased shortness of breath with activity for quite some time however prior to The emergency room shortness of breath and increased and she also developed severe pain in between her shoulder blades that she felt was coming through to the front of her chest. On 11/08/2016, CT chest dated multilobular pulmonary emboli involving the lobar and segmental branches of the right middle lobe, right lower lobe, left upper lobe and left lower lobe. There was no CT evidence of right heart strain. There was also a 7 mm right upper lobe nodule. Ground glass opacity in the right upper lobe is 1.6 x 1.2 cm in size there was also borderline mediastinal adenopathy. SHe will need f/u CT. Sheis being anticoagulated with heparin drip. She also had an echocardiogram that indicated LVEF 60%. Mild left ventricular diastolic dysfunction. Atypical septal motion of unclear etiology. Mildly dilated right ventricle with normal-appearing function. Mild pulmonary hypertension. She denies previous clot or family history of clotting problems. Will order hypercoagulability work up. Past Med Surg Social Fam HX - Past Medical History Medical history: diabetes, fibromyalgia, hyperlipidemia, hypertension, other ( spinal stenosis; radiculopathy; sleep obstruction, chronic pain, lumbar stenosis , lumbar radiculopathy, cervical pain, osteoarthritis, esophagitis,) Psychiatric history: depression - Past Surgical History Surgical History: other (Lumbar spinal fusion, spikes cord stimulator placed and removed, currently has a pain pump in place) - Social History Smoking Status: Former smoker (Reports that she quit in 2002) Smokeless Tobacco Status: No Alcohol use: none Drug use: none - Family History Father Name: Roosevelt Lee Age at : 72 Cause of : massive heart attack Medications and Allergies Aspirin [Lo-Dose Aspirin EC] 81 mg PO DAILY 09/15/16 [History] Ferrous Sulfate [Iron] 325 mg PO DAILY 09/15/16 [History] Furosemide [Lasix] 40 mg PO DAILY 09/15/16 [History] Gabapentin [Neurontin] 400 mg PO TID 09/15/16 [History] GlipiZIDE [Glipizide Xl] 5 mg PO DAILY 09/15/16 [History] Liraglutide [Victoza 2-Karsten] 1.2 mg SQ QWEEK 09/15/16 [History] Lisinopril [Zestril] 2.5 mg PO DAILY 09/15/16 [History] Metformin [Glucophage] 1,000 mg PO BID 09/15/16 [History] Ranitidine HCl [Acid Feather Maker] 150 mg PO BID 09/15/16 [History] Sertraline [Zoloft] 50 mg PO DAILY 09/15/16 [History] Diclofenac Sodium [Voltaren] 50 mg PO TID 11/09/16 [History] Meloxicam [Mobic] 15 mg PO DAILY 11/09/16 [History] Rivaroxaban [Xarelto] 15 mg PO BID #42 tablet 11/10/16 [Rx] Rivaroxaban [Xarelto] 20 mg PO DAILY #30 tablet 11/10/16 [Rx] Allergies adhesive tape Allergy (Verified 11/09/16 10:40) Rash Oxycodone Adverse Reaction (Verified 05/21/15 10:43) Anxiety All systems: reviewed and no additional remarkable complaints except as stated Constitutional: Present: fatigue Respiratory: Present: dyspnea on exertion Musculoskeletal: Present: back pain, myalgias (History of fibromyalgia) Integumentary: Present: erythema (Lower extremities left worse than right), swelling (Lateral lower extremities) Oncology - Exam - Constitutional Vitals: Temp Pulse Resp BP Pulse Ox 97.9 F 82 16 100/66 94 L 11/10/16 11:13 11/10/16 11:13 11/10/16 11:13 11/10/16 11:13 11/10/16 11:13 General appearance: cooperative, morbidly obese - Head Head exam: Present: normal inspection - ENT ENT exam: Present: mucous membranes moist - Respiratory Respiratory exam: Present: CTAB (O2 in place) - Cardiovascular Cardiovascular exam: Present: RRR - GI/Abdominal GI/Abdominal exam: Present: normal bowel sounds, soft (Nontender, morbidly obese ) - Extremities Exam Additional comments: Edema present bilateral lower extremities with erythema worse on the left and right. She did have a Band-Aid in place over covering areas where she was having drainage. - Psychiatric Psychiatric exam: Present: normal affect, normal mood Oncology - Results - Labs Labs: Short CBC 11/10/16 Range/Units 05:26 WBC 9.9 (4.3-11.1) K/mcL Hgb 11.6 (11.5-15.4) g/dL Hct 37.1 (35.3-44.9) % Plt Count 187 (140-400) K/mcL Neutrophils # 6.7 (1.6-8.9) K/mcL BMP 11/10/16 05:26 Sodium 139 Potassium 4.2 Chloride 101 Carbon Dioxide 30 H BUN 19 Creatinine 0.81 Glucose 187 H Calcium 8.3 L Consult Discharge Plan - Plan Instructions: Pulmonary Embolism (DC) Referrals: Kwabena Mattson MD [Primary Care Provider] - (web request sent on11/09/16) Prescriptions: Rivaroxaban [Xarelto] 15 mg PO BID #42 tablet Rivaroxaban [Xarelto] 20 mg PO DAILY #30 tablet <Margaret Real S - Last Filed: 11/11/16 12:27> - Data of Consult Requesting Physician: Ariel Welsh MD Primary Care Provider: Kwabena Mattson MD - Consult Narrative History of present illness: Ms. Lincoln is a 55 year old female Oncology - Exam - Constitutional Vitals: Temp Pulse Resp BP Pulse Ox 98.3 F 75 18 107/67 96 11/11/16 11:00 11/11/16 11:00 11/11/16 11:00 11/11/16 11:00 11/11/16 11:00 Exam: GENERAL: Alert and oriented, well appearing. Mental Status: Affect appropriate for circumstances HEENT: Sclerae anicteric. No mucositis or thrush. No other oral or pharyngeal lesions or erythema. Skin: No rashes or petechiae. No evidence of skin malignancy Lymph nodes: No cervical, supraclavicular, axillary, or inguinal adenopathy. Lungs: Air entry decreased at bases. Cardiovascular: Regular rate and rhythm. No gallops, murmurs, or rubs. Abdomen: Soft, nontender; no organomegaly or masses palpable. Extremities: Bilateral mild dependent edema. Mild erythema. Neurologic: Alert, cranial nerves II-XII intact; normal gait; no focal weakness or sensory abnormalities. Oncology - Results - Labs Labs: Short CBC 11/11/16 Range/Units 06:03 WBC 7.9 (4.3-11.1) K/mcL Hgb 11.6 (11.5-15.4) g/dL Hct 36.5 (35.3-44.9) % Plt Count 204 (140-400) K/mcL Neutrophils # 5.1 (1.6-8.9) K/mcL BMP 11/11/16 06:03 Sodium 140 Potassium 4.2 Chloride 102 Carbon Dioxide 29 BUN 16 Creatinine 0.75 Glucose 197 H Calcium 8.3 L - Attending Attestation 1. Bilateral pulmonary embolus. Bilateral lower extremity venous Doppler ordered results pending This is her first episode and apparently unprovoked. Minimum duration of anticoagulation is for one year. Okay to transition to Xarelto 15 mg twice a day for 3 weeks then 20 mg by mouth daily We will continue to monitor d-dimer Hypercoagulable workup done. Prothrombin gene mutation negative readdressed pending Her risk factor included obesity and lack of activity. Denied taking any estrogen containing supplements and advised to avoid that in the future No history of smoking Echocardiogram showed normal EF with no right ventricle strain
--- NOTE | 2016-11-10 15:24 | Electrocardiograph Report ---
[place] [id number] Test Date: 2016-11-08 Pat Name: Mirella Lincoln Department: 103 Room: 2A Gender: F Stitchdown Toe Former: : 1960 Requested By: Eric Feliciano Order Number: [id number] Reading MD: Joselito Becker Measurements Intervals [place] Rate: 112 P: 57 GA: 113 QRS: 63 QRSD: 97 T: 58 QT: 337 QTc: 403 Interpretive Statements SINUS TACHYCARDIA WITH FREQUENT VENTRICULAR PREMATURE COMPLEXES MINIMAL ST DEPRESSION ABNORMAL RHYTHM ECG Electronically Signed On 11-10-2016 15:23:11 EDT by Joselito Becker
[2016-11-10] MEDS: *HR* Rivaroxaban 15 MG TABLET PO SCH ×2 (15:59→22:29)
[2016-11-11 06:41] LABS: Basophils % 0.5 %; Eosinophils # 0.4 K/mcL (0.0-0.6); Eosinophils % 4.6 %; Hematocrit 36.5 % (35.3-44.9); Hemoglobin 11.6 g/dL (11.5-15.4); Immature Granulocytes % 0.3 % (0-4); Lymphocytes # 1.8 K/mcL (0.6-4.6); Lymphocytes % 22.7 %; Mean Corpuscular HGB Conc 31.8 g/dL (31.6-35.5); Mean Corpuscular Hemoglobin 28.2 pg (28.0-33.3); Mean Corpuscular Volume 88.8 fL (83.0-100.0); Mean Platelet Volume 9.6 fL (9.4-12.4); Monocytes # 0.5 K/mcL (0.0-1.3); Monocytes % 6.8 %; Neutrophils # 5.1 K/mcL (1.6-8.9); Platelet Count 204 K/mcL (140-400); Red Blood Count 4.11 M/mcL (3.82-4.97); Red Cell Distribution Width 13.5 % (11.5-14.5); Segmented Neutrophils % 65.1 %
[2016-11-11 06:58] LABS: BUN/Creatinine Ratio 21 (6-26); Blood Urea Nitrogen 16 mg/dL (7-20); Calcium 8.3 mg/dL (8.6-10.8); Carbon Dioxide 29 mEq/L (19-29); Chloride 102 mEq/L (98-109); Glucose 197 mg/dL (70-99); Osmolality,Calculated 297 (280-300); Potassium 4.2 mEq/L (3.5-4.5); Sodium 140 mEq/L (136-145); eGFR For African Americans > 60 (> 60); eGFR For Non-African Americans > 60 (> 60)
[2016-11-11] MEDS: Famotidine 20 MG TABLET PO SCH ×2 (07:17→17:09)
--- NOTE | 2016-11-11 08:25 | Event Note ---
Date of Encounter: 11/11/16 Time of Encounter: 08:23 55 Y/O F, morbidly obese, with PE Scheduled for discharge yesterday 11/10/16 on oral anticoagulants and home O2 Heme/Onc consult, noted and appreciated Lower extremity doppler or thrombophilia work up is done LE Doppler USS preliminary results with no DVT bilaterally but right GSC superficial VT Management is the same Patient is seen at bedside, denies new complains Physical Exam: VSS, Morbidly Obese, not in distress, chest is clear, HS S1, S2 only, no m/g/r , abdomen is benign, not tender, bilateral chronic venous stasis and edema. Patient will be discharged today on Xarelto, and her home meds. She needs O2 delivery here prior to discharge She will follow up with PCP and Oncology/Heme as out-patient
[2016-11-11 08:39] LABS: Factor V Leiden Normal (Normal); Prothrombin G20210A Mutation Normal (Normal)
[2016-11-11] MEDS: IRON PO SCH (08:43)
[2016-11-11] MEDS: Gabapentin 400 MG CAPSULE PO SCH ×2 (09:19→15:18)
[2016-11-11] MEDS: *HR* Rivaroxaban 15 MG TABLET PO SCH (09:19)
[2016-11-11] MEDS: Insulin LISPRO 300 UNITS/3 ML VIAL SQ SCH ×3 (09:19→17:09)
[2016-11-11] MEDS: Aspirin 81 MG TAB.CHEW PO SCH (09:19)
[2016-11-11] MEDS: Furosemide 40 MG TABLET PO SCH (09:19)
[2016-11-11 11:01] VITALS: BP 107/67
--- NOTE | 2016-11-11 17:00 | Venous Imaging Report ---
LE Venous Duplex Patient Name:Mirella Lincoln Order Number:[id number] Procedure Date:11/11/2016 Date:1960ge:55 yrs Gender:Female Location:[facility] Room #: 2A33 Tie Maker:Fidelia Marquez RVT Referring MD:Margaret Real MD clam bed worker:Kwabena Mattson M.D. Reading MD:Roni Graff MD Primary Indications:swelling lower extremities Secondary Indications: Risk Factors Yes/No Anticoagulants Yes Hx of DVT No Impressions: Left lower extremity: normal superficial and deep exam.Right lower extremity: normal deep exam.Lower extremity abnormal superficial exam: right great saphenousvein demonstrates chronic thrombosis with partial compressibility and flow maintained Findings Venous Duplex Results: Right: Venous imaging of the lower extremity reveals full patency and normal vessel compressibility of the right distal iliac, right common femoral, right superficial femoral, right popliteal and right lesser saphenous. Doppler signals in the evaluated veins were normal. There is a chronic partially occlusive thrombus seen in the right great saphenous that is recanalized. It demonstrates a partially compressible vein. Flow was phasic and it did augment. Left: Venous imaging of the lower extremity reveals full patency and normal vessel compressibility of the left distal iliac, left common femoral, left superficial femoral, left popliteal, left great saphenous and left lesser saphenous. Doppler signals in the evaluated veins were normal. Prior Study: No prior study available for comparison. Lower Extremity Venous Duplex Side Vein Compress Spontaneous Flow Augment Diameter (cm) Depth (cm) Right Distal Iliac Normal Yes Phasic Yes Right Common Femoral Normal Yes Phasic Yes Right Superficial Femoral Normal Yes Phasic Yes Right Popliteal Normal Yes Phasic Yes Right Great Saphenous Partial yes Phasic yes Right Lesser Saphenous Normal Yes Phasic Yes Left Distal Iliac Normal Yes Phasic Yes Left Common Femoral Normal Yes Phasic Yes Left Superficial Femoral Normal Yes Phasic Yes Left Popliteal Normal Yes Phasic Yes Left Great Saphenous Normal Yes Phasic Yes Left Lesser Saphenous Normal Yes Phasic Yes Updated by Roni Graff MD on 11/11/2016 4:55:42 PM electronically signed on 11/11/2016 4:56:21 PM with status of Final
[2016-11-13 07:29] LABS: Antithrombin III, Activity 70 % (76-128); Protein C, Functional 137 % (83-168)
[2016-11-13 19:19] LABS: APTT (LE Anticoag) 66 sec (32-48); Diluted Russell Viper Venom 30 sec (33-44); LE APTT D Heparin Neutralized 38 sec (32-48); LE Coag Reptilase Time 18.1 sec (<=21.9); PT (LE-Anticoag) 12.9 sec (12.0-15.5); Thrombin Time >150.0 sec (14.7-19.5)
== END 2016-11-11 20:06 | disposition home or self-care (01) | DRG 176 ==
LOC: EMEROO 17:07 → 3BNU 17:07 → 2ANU 19:47 → SUATTDRO 21:47
PROVIDERS: ADMIT Internal Medicine; ATTEND Internal Medicine

== ENCOUNTER 2017-08-17 15:10 | Inpatient (IN) ==
--- NOTE | 2017-08-17 17:05 | Emergency Department Note ---
START Narrative - START START: received call from vascular neg DVT exam in both legs
[2017-08-17 18:05] LABS: Basophils # 0.1 K/mcL (0.0-0.2); Basophils % 0.6 %; Eosinophils # 1.1 K/mcL (0.0-0.6); Eosinophils % 10.1 %; Hematocrit 41.5 % (35.3-44.9); Hemoglobin 12.7 g/dL (11.5-15.4); Immature Granulocytes % 0.3 % (0-4); Lymphocytes # 1.8 K/mcL (0.6-4.6); Lymphocytes % 16.5 %; Mean Corpuscular HGB Conc 30.6 g/dL (31.6-35.5); Mean Corpuscular Hemoglobin 27.3 pg (28.0-33.3); Mean Corpuscular Volume 89.1 fL (83.0-100.0); Mean Platelet Volume 8.6 fL (9.4-12.4); Monocytes % 9.7 %; Neutrophils # 6.8 K/mcL (1.6-8.9); Platelet Count 365 K/mcL (140-400); Red Blood Count 4.66 M/mcL (3.82-4.97); Red Cell Distribution Width 13.5 % (11.5-14.5); Segmented Neutrophils % 62.8 %
[2017-08-17] MEDS ORDERED: *HR* HYDROcodone/Acet 5/325 mg TABLET PO ONE (19:29)
[2017-08-17] MEDS ORDERED: 0.9 % Sodium Chloride 1,000 ML IVC ONE (19:29)
[2017-08-17] MEDS ORDERED: Vancomycin 1,000 MG in D5% in Water 250 ML IVPB ONE (19:30)
--- NOTE | 2017-08-17 19:47 | Emergency Department Note ---
Disposition Clinical Impression: Left leg cellulitis Cellulitis Qualifiers: Site of cellulitis: extremity Site of cellulitis of extremity: lower extremity Laterality: right Qualified Code(s): L03.115 - Cellulitis of right lower limb Disposition: Admitted As Inpatient Condition: Undetermined Referrals: NONE,PCP [Non-Partnered Physician] - Forms: ED Satisfaction Letter Extremity Problem HPI - General Chief complaint: ED Extremity Problem,Nontraumatic Stated complaint: cellulitis RLE-sent by Dr. Graff Time Seen by Provider: 08/17/17 19:13 Source: patient, family Mode of arrival: private vehicle Limitations: no limitations Nursing Notes Reviewed: Yes Vital Signs Reviewed: Yes - History of Present Illness Pt Subjective Complaint: extremity pain, extremity swelling, other (worsening redness, chills and not feeling well) Onset (ago): week(s) Consistency: constant, Worsening Injury Location: left, right, lower extremity Pain Scale: 10 Quality: burning, stabbing, aching, sharp Radiation: proximal Improves with: elevation Worsens with: weight bearing, walking, palpation Associated symptoms: Reports: rash ("from the cleaning solution they are using") , change in appearance, swelling, redness. Denies: chest pain, shortness of breath, abdominal pain, back pain, bowel/bladder symptoms, fever, myalgias, arthralgias Context: history of peripheral vascular disease - Related Data Home Medications Medication Instructions Recorded Confirmed Furosemide [Lasix] 40 mg PO DAILY 09/15/16 08/17/17 Gabapentin [Neurontin] 400 mg PO TID 09/15/16 08/17/17 GlipiZIDE [Glipizide Xl] 5 mg PO DAILY 09/15/16 08/17/17 Lisinopril [Zestril] 2.5 mg PO DAILY 09/15/16 08/17/17 Ranitidine HCl [Acid Skate Shop Attendant] 150 mg PO BID 09/15/16 08/17/17 Sertraline [Zoloft] 50 mg PO DAILY 09/15/16 08/17/17 metFORMIN [Glucophage] 1,000 mg PO BID 09/15/16 08/17/17 Ferrous Sulfate, Dried [Iron] 160 mg PO DAILY 11/18/16 08/17/17 Acetaminophen [Tylenol Arthritis] 650 mg PO Q6H PRN 08/17/17 08/17/17 Fluconazole [Diflucan] 100 mg PO BID 08/17/17 08/17/17 Insulin NPH Hum/Reg Insulin Hm 0 unit SQ TID PRN 08/17/17 08/17/17 [Novolin 70-30 100 Unit/ml Vial] Mupirocin [Bactroban Oint] 1 appl TP TID 08/17/17 08/17/17 Rivaroxaban [Xarelto] 20 mg PO DAILY 08/17/17 08/17/17 Previous Rx's Medication Instructions Recorded EPINEPHrine [Epipen] 0.3 mg IM ONCE PRN #1 kit 07/10/17 Allergies Allergy/AdvReac Type Severity Reaction Status Date / Time adhesive tape Allergy Rash Verified 08/17/17 15:24 Oxycodone AdvReac Anxiety Verified 08/17/17 15:24 All systems ED: reviewed and negative except as stated. Review of Systems: As Per HPI Constitutional: Reports: chills. Denies: fever, weakness, weight change, night sweats Cardiovascular: Denies: chest pain, palpitations, dyspnea on exertion, orthopnea , syncope Respiratory: Denies: cough, dyspnea, wheezes Gastrointestinal: Denies: abdominal pain, nausea, vomiting, diarrhea Musculoskeletal: Denies: back pain, neck pain, joint swelling, arthralgia, myalgia Integumentary: Reports: as per HPI, rash Neurological: Denies: headache, weakness, numbness, paresthesias Hematological/Lymphatic: Denies: easy bleeding, easy bruising, lymphadenopathy Past Medical History - Past Medical History Attestation: Yes The following information was validated with the patient. Source: patient Medical history: Reports: DVT, diabetes, fibromyalgia, hypertension, other Surgical history: Reports: cholecystectomy, orthopedic, other, other Psychiatric history: Reports: anxiety, depression - Social History Smoking Status: Former smoker Smokeless Tobacco Status: No Alcohol use: Reports: none Drug use: Reports: none Physical Exam - General Limitations: no limitations General appearance: alert, in no apparent distress - Head Head exam: atraumatic, normocephalic, normal inspection - Eye Eye exam: Present: normal appearance, PERRL, EOMI. Absent: scleral icterus, conjunctival injection, periorbital swelling - ENT ENT exam: mucous membranes dry - Neck Neck exam: Present: normal inspection, full ROM, trachea midline. Absent: meningismus - Chest Chest inspection: Present: normal inspection - Respiratory Respiratory exam: Absent: respiratory distress - Cardiovascular Cardiovascular exam: Present: regular rate, normal rhythm - Extremities Exam Extremities exam: Present: tenderness, normal capillary refill, pedal edema, calf tenderness. Absent: full ROM, joint swelling - Expanded Lower Extremity Exam Hip/Pelvis exam: Absent: tenderness Upper leg exam: Absent: tenderness Knee exam: Present: full ROM, other (diffuse rash - bilateral knees). Absent: tenderness, swelling Lower leg exam: Present: tenderness, swelling, erythema, Achilles tendon intact , other (multiple ulcerations with serosanguinous drainage and near circumferential cellulitis on the right lower leg, mild anterior cellulitis left lower leg). Absent: ecchymosis, deformity, crepitus, dislocation Ankle exam: Present: swelling (bilateral, moderate), erythema, other ( ulcerations - bilateral). Absent: full ROM Foot/toe exam: Present: full ROM, tenderness, swelling, erythema, other (dorsal left foot ulceration). Absent: ecchymosis, calcaneal tenderness Neurovascular/Tendon exam: Present: normal capillary refill, normal fine/light touch. Absent: pulse deficit, motor deficit, sensory deficit, tendon deficit, extremity cold to touch, pallor, foot drop, significant pain with passive ROM of distal joint Gait: not tested/not observed - Neurological Exam Neurological exam: Present: alert, oriented X3 - Psychiatric Psychiatric exam: Present: normal affect, normal mood - Skin Skin exam: Present: warm, dry, intact, normal color, other (bilateral anterior knees and upper shins - diffuse erythematous papular rash) - Expanded Skin Exam Distribution: LLE, RLE Description: Present: tenderness, erythematous, swelling, discharge, other ( multiple ulcerations) Course Course Narrative: Patient sees Dr. Graff for wound care. She states that she was sent here for admission for cellulitis and to have her legs scanned for DVT. She has a history of lymphedema in the lower extremities bilaterally as well as chronic venous hypertension. She has had multiple ulcerations on bilateral lower legs, which have developed gradually over the past month. She has been seen in wound care on a regular basis. Her last visit was last Thursday. She went to be seen today and was sent here instead to be evaluated for Doppler ultrasound and because of the significant increase in erythema in the right leg. She is morbidly obese and diabetic. She states that she is unable to change her dressings. The dressings on her legs are saturated. She states that the home health nurse comes to her house three times a week and within the hour after her wounds are dressed, they are already saturated. She denies fever but has had chills and malaise for the past two days. Labs and pain meds ordered. Doppler ultrasound study was ordered earlier today and resulted as negative for DVT or SVT. Patient will require admission for further evaluation and treatment of cellulitis. Case has been discussed with Dr. Templeton. He has had [id number] time with the patient and agrees with the assessment and plan. Vital Signs Temperature 99.1 F 08/17/17 15:21 Pulse Rate 96 08/17/17 15:21 Respiratory Rate 18 08/17/17 15:21 Blood Pressure 111/72 08/17/17 15:21 O2 Sat by Pulse Oximetry 93 08/17/17 15:21 Temperature 99.1 F 08/17/17 15:21 Pulse Rate 93 08/17/17 20:27 Respiratory Rate 16 08/17/17 20:27 Blood Pressure 106/79 08/17/17 20:27 O2 Sat by Pulse Oximetry 95 08/17/17 20:27 Oxygen Delivery Oxygen Delivery Room Air Extremity Problem, Nontraumati - Lab Data Result diagrams: 08/17/17 17:44 08/17/17 17:44 Lab Results 08/17/17 08/17/17 Range/Units 17:44 17:44 WBC 10.8 (4.3-11.1) K/mcL RBC 4.66 (3.82-4.97) M/mcL Hgb 12.7 (11.5-15.4) g/dL Hct 41.5 (35.3-44.9) % MCV 89.1 (83.0-100.0) fL MCH 27.3 L (28.0-33.3) pg MCHC 30.6 L (31.6-35.5) g/dL RDW 13.5 (11.5-14.5) % Plt Count 365 (140-400) K/mcL MPV 8.6 L (9.4-12.4) fL Immature Gran % 0.3 (0-4) % Seg Neutrophils % 62.8 % Lymphocytes % 16.5 % Monocytes % 9.7 % Eosinophils % 10.1 % Basophils % 0.6 % Neutrophils # 6.8 (1.6-8.9) K/mcL Lymphocytes # 1.8 (0.6-4.6) K/mcL Monocytes # 1.0 (0.0-1.3) K/mcL Eosinophils # 1.1 H (0.0-0.6) K/mcL Basophils # 0.1 (0.0-0.2) K/mcL Sodium 137 (136-145) mEq/L Potassium 4.5 (3.5-4.5) mEq/L Chloride 98 (98-109) mEq/L Carbon Dioxide 28 (19-29) mEq/L BUN 17 (7-20) mg/dL Creatinine 0.80 (0.57-1.11) mg/dL Est GFR ( Amer) > 60 (> 60) Est GFR (Non-Af Amer) > 60 (> 60) BUN/Creatinine Ratio 21 (6-26) Glucose 170 H (70-99) mg/dL Calculated Osmolality 290 (280-300) Calcium 9.5 (8.6-10.8) mg/dL C-Reactive Protein 139 H (Less than 5) mg/L Attestation Statement - Attestation Attestation: I, Chris Templeton MD, personally evaluated this patient and discussed their management with the midlevel provicer, PAC/GEOTECHNICAL LABORATORY TECHNICIAN. I reviewed the midlevel provider 's note and agree with the documented findings, medical decision making, and plan of care. 56-year-old female with chronic cellulitis and ulcerations of the lower extremities was referred to the emergency department from the wound care clinic for admission for worsening of her right lower extremity cellulitis. Patient had a venous Doppler which was negative for DVT but did show chronic superficial thrombophlebitis. Patient complains of worsening of her right lower leg over the past 1 month. She does admit to chills and subjective fever. On examination patient is a well-developed morbidly obese female in no acute distress. She is alert and oriented 3. There is no cyanosis or diaphoresis. Breath sounds are clear and equal bilaterally. Heart regular rate and rhythm. Abdomen is soft and nontender with normal bowel sounds. Patient has marked erythema and warmth to touch of the right lower extremity below the knee. She has multiple ulcerations which are dressed. She also has mild erythema of the left lower extremity with a much smaller area. Labs reviewed. The hospitalist, , was consulted and accepted admission of the patient.
[2017-08-17 19:48] LABS: BUN/Creatinine Ratio 21 (6-26); Blood Urea Nitrogen 17 mg/dL (7-20); C-Reactive Protein 139 mg/L (Less than 5); Calcium 9.5 mg/dL (8.6-10.8); Carbon Dioxide 28 mEq/L (19-29); Chloride 98 mEq/L (98-109); Glucose 170 mg/dL (70-99); Osmolality,Calculated 290 (280-300); Potassium 4.5 mEq/L (3.5-4.5); Sodium 137 mEq/L (136-145); eGFR For African Americans > 60 (> 60); eGFR For Non-African Americans > 60 (> 60)
[2017-08-17] MEDS ORDERED: Naloxone 0.4 MG/ML INJ IVP PRN (21:08)
[2017-08-17] MEDS ORDERED: Vancomycin 2,000 MG in D5% in Water 250 ML IVPB SCH (22:00)
[2017-08-17] MEDS ORDERED: NON-FORMULARY MEDICATION 1 EACH EACH (Acetaminophen [Tylenol Arthritis] 650 MG) PO PRN (22:09)
--- NOTE | 2017-08-17 22:18 | Internal Med History&Physical ---
<Napoleon Cao - Last Filed: 08/17/17 22:23> Date of Encounter: 08/17/17 Time of Encounter: 22:17 Assessment and Plan (1) Cellulitis Current visit: Yes Status: Acute Worsening erythema, swelling and drainage of bilateral lower extremity. The chronic cellulitis for greater than 1 month being treated at the outpatient wound clinic by Dr. Graff. His requested the patient come to the ED today for DVT studies and IV antibiotics. Patient's bilateral lower extremity is appeared very edematous and erythematous with copious amounts of clear serous drainage There are multiple open ulcers present throughout, has poor circulation bilaterally Consult Dr. Graff since he follows as an outpatient in the wound clinic-dayshift team to call Consult wound care team for further cleansing and dressing recommendations Obtain wound cultures now IV antibiotics include vancomycin and Zosyn CBC, BMP in the morning Qualifiers: Site of cellulitis: extremity Site of cellulitis of extremity: lower extremity Laterality: right Qualified Code(s): L03.115 - Cellulitis of right lower limb (2) Lymphedema of both lower extremities Current visit: Yes Status: Acute Chronic lymphedema bilateral lower extremities. She has Chronic venous hypertension. They have follow-up with Dr. Graff at outpatient wound clinic. See plan above (3) Chronic venous hypertension w/ulcer and inflammation involv both sides Current visit: Yes Status: Acute (4) Diabetes Current visit: Yes Status: Acute Start sliding scale insulin coverage with before meals and at bedtime Accu- Cheks as well as diabetic diet Qualifiers: Diabetes mellitus type: type 2 Diabetes mellitus complication status: with circulatory complication Diabetes mellitus complication detail: with other circulatory complications Diabetes mellitus vice president of product marketing insulin use: without vice president of product marketing use Qualified Code(s): E11.59 - Type 2 diabetes mellitus with other circulatory complications (5) HTN (hypertension) Current visit: Yes Status: Acute History of essential hypertension. BP remained stable, continue NEAL inhibitor Qualifiers: Hypertension type: essential hypertension Qualified Code(s): I10 - Essential (primary) hypertension (6) Obesity Current visit: Yes Status: Acute Demian obesity. Discussed lifestyle modifications including diet and weight loss Qualifiers: Obesity type: unspecified obesity type Obesity classification: adult class 3 (BMI >= 40) Serious obesity comorbidity presence: unspecified whether serious comorbidity present Body mass index: BMI 50.0-59.9 Qualified Code(s) : E66.9 - Obesity, unspecified; Z68.43 - Body mass index (BMI) 50-59.9 , adult; Z68.43 - Body mass index (BMI) 50-59.9 , adult; Z68.43 - Body mass index (BMI) 50-59.9 , adult; Z68.43 - Body mass index (BMI) 50-59.9 , adult Internal Medicine - H&P: HPI Chief complaint: BLE CELLULITIS Admitted From: Home Plans for Post Hospital Care: Home History of present illness: Ms. Lincoln is a 56 year old female with a PMH of PE, DVT, DM, fibromyalgia, HTN and chronic venous hypertension. The patient reports she has bilateral lower extremity cellulitis for greater than 1 month. She reports that she sees Dr. Graff for wound care. Patient reports chronic wounds in bilateral lower extremities due to venous hypertension and chronic lymphedema. She went to wound care clinic today with a found an increase in swelling and erythema suggested she come to the ED for Doppler ultrasound to rule out DVT due to history. Additionally this until she may need antibiotic treatment. She denies chills, night sweats, excessive fatigue, abdominal pain, nausea vomiting diarrhea. Admits to low-grade fevers throughout the last week. Doppler ultrasound negative for DVT or SVT. Past Med Surg Social Fam HX - Past Medical History Medical history: DVT, diabetes, fibromyalgia, hypertension, other Psychiatric history: anxiety, depression - Past Surgical History Surgical History: cholecystectomy, orthopedic, other, other - Social History Smoking Status: Former smoker Smokeless Tobacco Status: No Alcohol use: none Drug use: none - Family History Mother Living Status: Hx Family Cardiac Disorders: Yes Hx Family Endocrine Disorder: Yes Internal Medicine - H&P: Meds Furosemide [Lasix] 40 mg PO DAILY 09/15/16 [History] Gabapentin [Neurontin] 400 mg PO TID 09/15/16 [History] GlipiZIDE [Glipizide Xl] 5 mg PO DAILY 09/15/16 [History] Lisinopril [Zestril] 2.5 mg PO DAILY 09/15/16 [History] Ranitidine HCl [Acid Corporate Licensed Broker] 150 mg PO BID 09/15/16 [History] Sertraline [Zoloft] 50 mg PO DAILY 09/15/16 [History] metFORMIN [Glucophage] 1,000 mg PO BID 09/15/16 [History] Ferrous Sulfate, Dried [Iron] 160 mg PO DAILY 11/18/16 [History] EPINEPHrine [Epipen] 0.3 mg IM ONCE PRN #1 kit 07/10/17 [Rx] Acetaminophen [Tylenol Arthritis] 650 mg PO Q6H PRN 08/17/17 [History] Fluconazole [Diflucan] 100 mg PO BID 08/17/17 [History] Insulin NPH Hum/Reg Insulin Hm [Novolin 70-30 100 Unit/ml Vial] 0 unit SQ TID PRN 08/17/17 [History] Mupirocin [Bactroban Oint] 1 appl TP TID 08/17/17 [History] Rivaroxaban [Xarelto] 20 mg PO DAILY 08/17/17 [History] 3 Allergy/AdvReac Type Severity Reaction Status Date / Time adhesive tape Allergy Rash Verified 08/17/17 15:24 Oxycodone AdvReac Anxiety Verified 08/17/17 15:24 All Systems PM: A 10-system review of systems was performed and is negative for pertinent findings except as documented above in the HPI. - Constitutional Constitutional: fever(s) (Low-grade), no chills, no fatigue, no night sweats - EENT Eyes: no change in vision, no discharge, no pain, no photophobia Ears: no ear discharge, no ear pain, no tinnitus Nose, mouth and throat: no dysphagia, no nasal discharge, no neck pain, no sore throat - Cardiovascular Cardiovascular ROS IM: no chest pain, no diaphoresis, no dyspnea, no lightheadedness, no palpitations, no syncope - Respiratory Respiratory: no cough, no dyspnea, no wheezing, no excessive phlegm production - Gastrointestinal Gastrointestinal: no abdominal pain, no diarrhea, no hematemesis, no hematochezia, no melena, no nausea, no vomiting - Genitourinary Genitourinary: no change in urinary stream, no dysuria, no flank pain, no hematuria - Musculoskeletal Musculoskeletal ROS IM: arthralgias, myalgias, no numbness, no tingling - Integumentary Integumentary IM: erythema, skin ulcer, sores, other, no rash, no unusual bruising Additional comments: Copious serous drainage from bilateral leg ulcers - Neurological Neurological ROS: no confusion, no convulsions, no focal weakness, no numbness, no tingling, no tremor(s) - Hematologic/Lymphatic Hematologic/Lymphatic: no easy bruising - Constitutional Vitals: Temp Pulse Resp BP Pulse Ox 99.1 F 93 16 106/79 95 08/17/17 15:21 08/17/17 20:27 08/17/17 20:27 08/17/17 20:27 08/17/17 20:27 General appearance: Present: cooperative, A&O X 3, no acute distress, answers questions appropriately - Head Head exam: Present: atraumatic, normocephalic - Neck Neck exam general surgery: Present: supple, trachea midline. Absent: lymphadenopathy - Respiratory Respiratory exam: Present: CTAB. Absent: accessory muscle use, rales, rhonchi, wheezes - Cardiovascular Cardiovascular exam: Present: RRR, +S1, +S2. Absent: diastolic murmur, gallop, rubs, systolic murmur - GI/Abdominal GI/Abdominal exam: Present: normal bowel sounds, soft, no peritoneal signs. Absent: distended, tenderness - Extremities Exam Extremities exam: Present: pedal edema, tenderness, warm. Absent: calf tenderness, cyanotic, normal capillary refill, normal inspection, radial pulses palpable and symmetrical - Expanded Lower Extremities Exam Lower Leg exam: Present: erythema, swelling, tenderness. Absent: normal inspection Ankle exam: Present: erythema, swelling, tenderness. Absent: normal inspection 1 - erythema, edema, clear serrous drainage and BLE cellulitis - Neurological Exam Neurological exam: Present: alert, oriented X3, no focal deficits. Absent: pronater drift, facial droop, speech deficit - Skin Skin exam: Present: erythema, warm. Absent: intact Additional comments: cellulitis Internal Med - H&P Results - Labs CBC & Chem 7: 08/17/17 17:44 08/17/17 17:44 Labs: Short CBC 08/17/17 Range/Units 17:44 WBC 10.8 (4.3-11.1) K/mcL Hgb 12.7 (11.5-15.4) g/dL Hct 41.5 (35.3-44.9) % Plt Count 365 (140-400) K/mcL Neutrophils # 6.8 (1.6-8.9) K/mcL [facility] 08/17/17 17:44 Sodium 137 Potassium 4.5 Chloride 98 Carbon Dioxide 28 BUN 17 Creatinine 0.80 Glucose 170 H Calcium 9.5 <Red Macedo - Last Filed: 08/18/17 05:45> Date of Encounter: 08/17/17 Internal Medicine - H&P: HPI History of present illness: Ms. Lincoln is a 56 year old female All Systems PM: A 10-system review of systems was performed and is negative for pertinent findings except as documented above in the HPI. - Constitutional Vitals: Temp Pulse Resp BP Pulse Ox 97.6 F 92 14 149/82 98 08/18/17 03:49 08/18/17 03:49 08/18/17 03:49 08/18/17 03:49 08/18/17 03:49 Internal Med - H&P Results - Labs CBC & Chem 7: 08/18/17 00:53 08/18/17 00:53 Labs: Short CBC 08/18/17 Range/Units 00:53 WBC 8.0 (4.3-11.1) K/mcL Hgb 12.0 (11.5-15.4) g/dL Hct 38.0 (35.3-44.9) % Plt Count 322 (140-400) K/mcL Neutrophils # 5.2 (1.6-8.9) K/mcL [facility] 08/18/17 00:53 Sodium 136 Potassium 4.2 Chloride 101 Carbon Dioxide 25 BUN 15 Creatinine 0.79 Glucose 227 H Calcium 8.7 - Attending Attestation I have personally performed a face to face evaluation on this patient. I have reviewed and agree with the care plan provided by BRADFORD Cao. History and Exam by me shows: Ms. Lincoln is a 56 year old female with a PMH of PE, DVT, DM, fibromyalgia, HTN and chronic venous hyperstasis patient reports she has bilateral lower extremity cellulitis for greater than 1 month, from last 2 days she noticed worsening erythema , swelling and serous drainage. Pt has been following with Dr. Graff at wound care clinic. Gen ; A, A, O x 3 Ext: Diffuse erythema in both legs, large open ulcers over both legs distally, and tristin laterally a/p 1. Acute b/l LE cellulites Cont empirical abx Zosyn and Vanco Cont local wound care will consult Surgery in AM Reviewed prelim report of Venoud doppler no DVT in both legs, however she does have chronic SVT in Rt leg no anti coag needed
[2017-08-17] MEDS ORDERED: Dextrose Gel 15 GM PO PRN ×2 (22:45)
[2017-08-17] MEDS ORDERED: D5% in Water 1,000 ML IVC PRN (22:45)
[2017-08-17] MEDS ORDERED: *HR* Dextrose 50 % in Water (Syg) 50 ML SYRINGE IVP PRN (22:45)
[2017-08-17] MEDS ORDERED: Piperacillin/Tazobactam 3.375 GM in Water for inj. (sterile) 20 ML 20 ML IVP ONE (23:00)
[2017-08-17] MEDS ORDERED: Ondansetron 4 MG/2 ML VIAL IVP PRN (23:43)
[2017-08-18] MEDS ORDERED: Piperacillin/Tazobactam 3.375 GM in D5% in Water (Mini-Bag+) 100 ML IVPB SCH
[2017-08-18 01:06] LABS: Basophils % 0.2 %; Eosinophils # 0.7 K/mcL (0.0-0.6); Eosinophils % 8.1 %; Immature Granulocytes % 0.4 % (0-4); Lymphocytes # 1.4 K/mcL (0.6-4.6); Lymphocytes % 17.8 %; Mean Corpuscular HGB Conc 31.6 g/dL (31.6-35.5); Mean Corpuscular Hemoglobin 28.1 pg (28.0-33.3); Mean Platelet Volume 8.6 fL (9.4-12.4); Monocytes # 0.8 K/mcL (0.0-1.3); Monocytes % 9.5 %; Neutrophils # 5.2 K/mcL (1.6-8.9); Platelet Count 322 K/mcL (140-400); Red Blood Count 4.27 M/mcL (3.82-4.97); Red Cell Distribution Width 13.5 % (11.5-14.5)
[2017-08-18 01:24] LABS: BUN/Creatinine Ratio 19 (6-26); Blood Urea Nitrogen 15 mg/dL (7-20); Calcium 8.7 mg/dL (8.6-10.8); Carbon Dioxide 25 mEq/L (19-29); Chloride 101 mEq/L (98-109); Glucose 227 mg/dL (70-99); Osmolality,Calculated 290 (280-300); Potassium 4.2 mEq/L (3.5-4.5); Sodium 136 mEq/L (136-145); eGFR For African Americans > 60 (> 60); eGFR For Non-African Americans > 60 (> 60)
[2017-08-18 01:34] LABS: Hemoglobin A1C 8.9 %
[2017-08-18] MEDS ORDERED: Piperacillin/Tazobactam 3.375 GM/200 ML BAG IVPB SCH (02:00)
[2017-08-18] MEDS ORDERED: Vancomycin 500 MG in D5% in Water 250 ML IVPB ONE ×2 (02:00)
[2017-08-18] MEDS: *HR* HYDROcodone/Acet 5/325 mg TABLET PO PRN ×3 (04:03→13:42)
[2017-08-18] MEDS: *HR* Heparin 5,000 UNIT/ML VIAL SQ SCH ×2 (06:39→17:42)
[2017-08-18] MEDS ORDERED: Furosemide 40 MG/4 ML VIAL IVP SCH (08:00)
[2017-08-18] MEDS ORDERED: Furosemide 40 MG TABLET PO SCH (09:00)
[2017-08-18] MEDS: Famotidine 20 MG TABLET PO SCH ×2 (09:02→17:36)
[2017-08-18] MEDS: *HR* Rivaroxaban 10 MG TABLET PO SCH (09:02)
[2017-08-18] MEDS: Gabapentin 400 MG CAPSULE PO SCH ×3 (09:02→20:54)
[2017-08-18] MEDS: Insulin LISPRO 300 UNITS/3 ML VIAL SQ SCH ×4 (09:04→20:54)
--- NOTE | 2017-08-18 09:14 | Internal Med Progress Note ---
Date of Encounter: 08/18/17 Time of Encounter: 09:10 - Assessment and plan (1) Cellulitis Current Visit: Yes Status: Acute Assessment and plan: I think the issue more is the chronic lymphedema as well as the significant weight. For now she has significant skin sloughing and drainage from the lower extremities. I have asked Dr. Haas to see the patient along with me. I have changed her antibiotic to ceftriaxone. Continue to follow the patient. I believe she needs more of significant wound care that she does need antibiotics. We will continue pain control. Qualifiers: Site of cellulitis: extremity Site of cellulitis of extremity: lower extremity Laterality: right Qualified Code(s): L03.115 - Cellulitis of right lower limb (2) Lymphedema of both lower extremities Current Visit: Yes Status: Acute Assessment and plan: This is being managed at the wound clinic. (3) Diabetes Current Visit: Yes Status: Acute Assessment and plan: Continue with insulin sliding scale for now. Continue with Accu-Cheks. Her glucose is somewhat elevated in the 150s. I have not added any basal insulin for now. We will continue to monitor and if needed we will do that. Qualifiers: Diabetes mellitus type: type 2 Diabetes mellitus complication status: with circulatory complication Diabetes mellitus complication detail: with other circulatory complications Diabetes mellitus custodial insulin use: without custodial use Qualified Code(s): E11.59 - Type 2 diabetes mellitus with other circulatory complications (4) Obesity Current Visit: Yes Status: Acute Assessment and plan: We will consult dietary. Qualifiers: Obesity type: unspecified obesity type Obesity classification: adult class 3 (BMI >= 40) Serious obesity comorbidity presence: unspecified whether serious comorbidity present Body mass index: BMI 50.0-59.9 Qualified Code(s) : E66.9 - Obesity, unspecified; Z68.43 - Body mass index (BMI) 50-59.9 , adult; Z68.43 - Body mass index (BMI) 50-59.9 , adult; Z68.43 - Body mass index (BMI) 50-59.9 , adult; Z68.43 - Body mass index (BMI) 50-59.9 , adult (5) HTN (hypertension) Current Visit: Yes Status: Acute Assessment and plan: Continue with home meds. She is on lisinopril. She takes Lasix as well. Qualifiers: Hypertension type: essential hypertension Qualified Code(s): I10 - Essential (primary) hypertension (6) Pulmonary emboli Current Visit: No Status: Acute Assessment and plan: She has a history of this. She is on xarelto. Qualifiers: Pulmonary embolism type: other Chronicity: acute Acute cor pulmonale presence: without acute cor pulmonale Qualified Code(s): I26.99 - Other pulmonary embolism without acute cor pulmonale (7) DVT prophylaxis Current Visit: Yes Status: Acute Assessment and plan: She is on Xarelto - Subjective Interval history: Patient was seen and examined. She was admitted last night with worsening lower extremity wounds. She was sent from the wound clinic. She follows Dr. Graff. She has been afebrile here. She reports chills at home. She feels warm. - Constitutional Vitals: Temp Pulse Resp BP Pulse Ox 98.0 F 79 16 111/68 94 08/18/17 07:46 08/18/17 07:46 08/18/17 07:46 08/18/17 07:46 08/18/17 07:46 General appearance: Present: cooperative, A&O X 3, no acute distress, answers questions appropriately Exam: GEN: NAD CVS: RRR. S1, S2, No m/r/g RESP: CTAB ABD: Soft, NT, ND, +BS. Obese. EXT: Lower extremities with areas of erythema in the lower extremities more significant on the right that is on the left. Areas of skin sloughing surrounding erythema. NEURO: Nonfocal Internal Medicine: Result - Labs CBC & Chem 7: 08/18/17 00:53 08/18/17 00:53 Labs: Short CBC 08/18/17 Range/Units 00:53 WBC 8.0 (4.3-11.1) K/mcL Hgb 12.0 (11.5-15.4) g/dL Hct 38.0 (35.3-44.9) % Plt Count 322 (140-400) K/mcL Neutrophils # 5.2 (1.6-8.9) K/mcL BMP 08/18/17 00:53 Sodium 136 Potassium 4.2 Chloride 101 Carbon Dioxide 25 BUN 15 Creatinine 0.79 Glucose 227 H Calcium 8.7 Consult Discharge Plan - Plan Referrals: Kwabena Mattson MD [Primary Care Provider] -
[2017-08-18] MEDS ORDERED: Vancomycin 1,500 MG in D5% in Water 250 ML IVPB SCH (10:00)
--- NOTE | 2017-08-18 10:38 | Event Note ---
Date of Encounter: 08/18/17 Time of Encounter: 10:32 Recommend wound care nurse to evaluate. Consult entered per the hospitalist and Rajwinder Ashley notified per myself. She will make recommendations for wound care and then assess if there is a role for surgery in the care of this patient.
[2017-08-18] MEDS: Acetaminophen 325 MG TABLET PO PRN ×2 (12:07→23:41)
[2017-08-18] MEDS ORDERED: cefTRIAXone 1,000 MG in Water for inj. (sterile) 10 ML IVP SCH (15:00)
[2017-08-18] MEDS: *HR* Morphine 2 MG/ML SYRINGE IVP PRN ×2 (15:52→20:55)
[2017-08-18] MEDS: Miconazole 2% ointment 114 GM TUBE TP SCH ×2 (15:55→21:01)
[2017-08-19] MEDS ORDERED: Ibuprofen 400 MG TABLET PO ONE (01:13)
[2017-08-19] MEDS ORDERED: Vancomycin 1,500 MG in D5% in Water 250 ML IVPB SCH (02:00)
[2017-08-19] MEDS: *HR* Heparin 5,000 UNIT/ML VIAL SQ SCH ×2 (04:52→17:00)
[2017-08-19 06:31] LABS: Basophils % 0.4 %; Eosinophils # 0.7 K/mcL (0.0-0.6); Eosinophils % 9.2 %; Hematocrit 35.3 % (35.3-44.9); Hemoglobin 10.8 g/dL (11.5-15.4); Immature Granulocytes % 0.3 % (0-4); Lymphocytes % 28.2 %; Mean Corpuscular HGB Conc 30.6 g/dL (31.6-35.5); Mean Corpuscular Hemoglobin 27.4 pg (28.0-33.3); Mean Corpuscular Volume 89.6 fL (83.0-100.0); Mean Platelet Volume 8.7 fL (9.4-12.4); Monocytes # 1.1 K/mcL (0.0-1.3); Monocytes % 14.9 %; Neutrophils # 3.3 K/mcL (1.6-8.9); Platelet Count 331 K/mcL (140-400); Red Blood Count 3.94 M/mcL (3.82-4.97); Red Cell Distribution Width 13.5 % (11.5-14.5)
[2017-08-19 06:43] LABS: BUN/Creatinine Ratio 21 (6-26); Blood Urea Nitrogen 16 mg/dL (6-20); Calcium 8.2 mg/dL (8.6-10.3); Carbon Dioxide 29 mEq/L (23-29); Chloride 101 mEq/L (98-107); Glucose 197 mg/dL (70-105); Magnesium 1.8 mg/dL (1.6-2.6); Osmolality,Calculated 289 (280-300); Potassium 4.1 mEq/L (3.5-5.1); Sodium 136 mEq/L (136-145); eGFR For African Americans > 60 (> 60); eGFR For Non-African Americans > 60 (> 60)
[2017-08-19] MEDS: Insulin LISPRO 300 UNITS/3 ML VIAL SQ SCH ×4 (07:57→22:07)
[2017-08-19] MEDS: Piperacillin/Tazobactam 3.375 GM/200 ML BAG IVPB SCH ×2 (07:57→17:00)
[2017-08-19] MEDS: *HR* Rivaroxaban 10 MG TABLET PO SCH (07:58)
[2017-08-19] MEDS: Famotidine 20 MG TABLET PO SCH ×2 (07:58→17:00)
[2017-08-19] MEDS: Gabapentin 400 MG CAPSULE PO SCH ×3 (07:58→22:07)
[2017-08-19] MEDS: Furosemide 40 MG TABLET PO SCH (07:58)
[2017-08-19] MEDS: *HR* HYDROcodone/Acet 5/325 mg TABLET PO PRN ×3 (08:08→22:07)
[2017-08-19] MEDS ORDERED: Aminoglycoside Consult 1 EACH MC ONE (08:24)
[2017-08-19] MEDS ORDERED: Insulin DETEMIR 100 UNIT/ML X5UNITS SQ ONE (09:20)
--- NOTE | 2017-08-19 09:26 | Internal Med Progress Note ---
Date of Encounter: 08/19/17 Time of Encounter: 09:30 - Assessment and plan (1) Cellulitis Current Visit: Yes Status: Acute Assessment and plan: I think the issue more is the chronic lymphedema as well as the significant weight. For now she has significant skin sloughing and drainage from the lower extremities. Surgeries consulted. I agree with broadening her antibiotics to Zosyn given the pseudomonas that is growing. Stop ceftriaxone. I do not see a need for vancomycin. Given the high-grade temperature check lactic acid. Sent for blood cultures. I believe she needs more of significant wound care that she does need antibiotics. We will continue pain control. Qualifiers: Site of cellulitis: extremity Site of cellulitis of extremity: lower extremity Laterality: right Qualified Code(s): L03.115 - Cellulitis of right lower limb (2) Lymphedema of both lower extremities Current Visit: Yes Status: Acute Assessment and plan: This is being managed at the wound clinic. (3) Diabetes Current Visit: Yes Status: Acute Assessment and plan: Continue with insulin sliding scale for now. Give 15 units of Levemir this morning. Continue with Accu-Cheks. Qualifiers: Diabetes mellitus type: type 2 Diabetes mellitus complication status: with circulatory complication Diabetes mellitus complication detail: with other circulatory complications Diabetes mellitus ad terminal makeup operator insulin use: without ad terminal makeup operator use Qualified Code(s): E11.59 - Type 2 diabetes mellitus with other circulatory complications (4) Obesity Current Visit: Yes Status: Acute Assessment and plan: We will consult dietary. Qualifiers: Obesity type: unspecified obesity type Obesity classification: adult class 3 (BMI >= 40) Serious obesity comorbidity presence: unspecified whether serious comorbidity present Body mass index: BMI 50.0-59.9 Qualified Code(s) : E66.9 - Obesity, unspecified; Z68.43 - Body mass index (BMI) 50-59.9 , adult; Z68.43 - Body mass index (BMI) 50-59.9 , adult; Z68.43 - Body mass index (BMI) 50-59.9 , adult; Z68.43 - Body mass index (BMI) 50-59.9 , adult (5) HTN (hypertension) Current Visit: Yes Status: Acute Assessment and plan: Continue with home meds. She is on lisinopril. She takes Lasix as well. Qualifiers: Hypertension type: essential hypertension Qualified Code(s): I10 - Essential (primary) hypertension (6) Pulmonary emboli Current Visit: No Status: Acute Assessment and plan: She has a history of this. She is on xarelto. Qualifiers: Pulmonary embolism type: other Chronicity: acute Acute cor pulmonale presence: without acute cor pulmonale Qualified Code(s): I26.99 - Other pulmonary embolism without acute cor pulmonale (7) DVT prophylaxis Current Visit: Yes Status: Acute Assessment and plan: She is on Xarelto - Subjective Interval history: Patient was seen and examined. She apparently had a high-grade temperature of 206 last night. She currently feels well. Her antibiotics were changed to vancomycin and Zosyn. She is growing Pseudomonas from her left wound cultures. He is currently afebrile. - Constitutional Vitals: Temp Pulse Resp BP Pulse Ox 97.7 F 72 18 116/72 97 08/19/17 06:59 08/19/17 06:59 08/19/17 06:59 08/19/17 06:59 08/19/17 06:59 General appearance: Present: cooperative, A&O X 3, no acute distress, answers questions appropriately Exam: GEN: NAD CVS: RRR. S1, S2, No m/r/g RESP: CTAB ABD: Soft, NT, ND, +BS. Obese. EXT: Lower extremities with areas of erythema in the lower extremities more significant on the right that is on the left. Areas of skin sloughing surrounding erythema. NEURO: Nonfocal Internal Medicine: Result - Labs CBC & Chem 7: 08/19/17 05:24 08/19/17 05:24 Labs: Short CBC 08/19/17 Range/Units 05:24 WBC 7.1 (4.3-11.1) K/mcL Hgb 10.8 L (11.5-15.4) g/dL Hct 35.3 (35.3-44.9) % Plt Count 331 (140-400) K/mcL Neutrophils # 3.3 (1.6-8.9) K/mcL BMP 08/19/17 05:24 Sodium 136 Potassium 4.1 Chloride 101 Carbon Dioxide 29 BUN 16 Creatinine 0.78 Glucose 197 H Calcium 8.2 L Consult Discharge Plan - Plan Referrals: Kwabena Mattson MD [Primary Care Provider] -
[2017-08-19] MEDS: *HR* Morphine 2 MG/ML SYRINGE IVP PRN (14:47)
[2017-08-19] MEDS: Miconazole 2% ointment 114 GM TUBE TP SCH (15:48)
[2017-08-20] MEDS: Piperacillin/Tazobactam 3.375 GM/200 ML BAG IVPB SCH ×2 (01:15→20:51)
[2017-08-20] MEDS ORDERED: Piperacillin/Tazobactam 3.375 GM/200 ML BAG IVPB SCH ×2 (02:00→14:00)
[2017-08-20 04:43] LABS: Basophils % 0.5 %; Eosinophils # 0.9 K/mcL (0.0-0.6); Eosinophils % 10.6 %; Hematocrit 35.4 % (35.3-44.9); Hemoglobin 10.9 g/dL (11.5-15.4); Immature Granulocytes % 0.4 % (0-4); Lymphocytes # 1.5 K/mcL (0.6-4.6); Mean Corpuscular HGB Conc 30.8 g/dL (31.6-35.5); Mean Corpuscular Hemoglobin 27.6 pg (28.0-33.3); Mean Corpuscular Volume 89.6 fL (83.0-100.0); Mean Platelet Volume 8.8 fL (9.4-12.4); Monocytes # 0.9 K/mcL (0.0-1.3); Monocytes % 10.5 %; Platelet Count 331 K/mcL (140-400); Red Blood Count 3.95 M/mcL (3.82-4.97); Red Cell Distribution Width 13.2 % (11.5-14.5)
[2017-08-20 05:07] LABS: BUN/Creatinine Ratio 15 (6-26); Blood Urea Nitrogen 9 mg/dL (6-20); Carbon Dioxide 32 mEq/L (23-29); Chloride 102 mEq/L (98-107); Glucose 187 mg/dL (70-105); Osmolality,Calculated 296 (280-300); Potassium 3.9 mEq/L (3.5-5.1); Sodium 141 mEq/L (136-145); eGFR For African Americans > 60 (> 60); eGFR For Non-African Americans > 60 (> 60)
[2017-08-20] MEDS: *HR* Morphine 2 MG/ML SYRINGE IVP PRN ×2 (05:14→15:03)
[2017-08-20] MEDS: *HR* Heparin 5,000 UNIT/ML VIAL SQ SCH ×2 (05:15→17:12)
[2017-08-20] MEDS: Miconazole 2% ointment 114 GM TUBE TP SCH ×2 (06:26→16:07)
[2017-08-20] MEDS: *HR* HYDROcodone/Acet 5/325 mg TABLET PO PRN ×2 (06:57→20:50)
[2017-08-20] MEDS: Insulin LISPRO 300 UNITS/3 ML VIAL SQ SCH ×4 (09:04→20:45)
[2017-08-20] MEDS: *HR* Rivaroxaban 10 MG TABLET PO SCH (09:05)
[2017-08-20] MEDS: Gabapentin 400 MG CAPSULE PO SCH ×3 (09:05→20:50)
[2017-08-20] MEDS: Famotidine 20 MG TABLET PO SCH ×2 (09:05→17:12)
[2017-08-20] MEDS: Furosemide 40 MG TABLET PO SCH (09:05)
[2017-08-20] MEDS: Acetaminophen 325 MG TABLET PO PRN (09:14)
--- NOTE | 2017-08-20 13:11 | Internal Med Progress Note ---
Date of Encounter: 08/20/17 Time of Encounter: 08:00 - Assessment and plan (1) Cellulitis Current Visit: Yes Status: Acute Assessment and plan: I think the issue more is the chronic lymphedema as well as the significant weight. For now she has significant skin sloughing and drainage from the lower extremities. Surgery is consulted. Continue Zosyn for now. She is growing Pseudomonas and strep agalactia. We will follow up on the final sensitivities and adjust diuretics based on that. Does not seem that there is any surgical intervention needed. I would like her to be fever free for 24 hours before discharge. Continue with pain control. Qualifiers: Site of cellulitis: extremity Site of cellulitis of extremity: lower extremity Laterality: right Qualified Code(s): L03.115 - Cellulitis of right lower limb (2) Lymphedema of both lower extremities Current Visit: Yes Status: Acute Assessment and plan: This is being managed at the wound clinic. (3) Diabetes Current Visit: Yes Status: Acute Assessment and plan: Continue with insulin sliding scale for now. Will start 20 of Levemir each morning. I gave her 15 yesterday and her glucose still elevated. Continue with Accu-Cheks. Qualifiers: Diabetes mellitus type: type 2 Diabetes mellitus complication status: with circulatory complication Diabetes mellitus complication detail: with other circulatory complications Diabetes mellitus alf insulin use: without alf use Qualified Code(s): E11.59 - Type 2 diabetes mellitus with other circulatory complications (4) Obesity Current Visit: Yes Status: Acute Assessment and plan: We will consult dietary. Qualifiers: Obesity type: unspecified obesity type Obesity classification: adult class 3 (BMI >= 40) Serious obesity comorbidity presence: unspecified whether serious comorbidity present Body mass index: BMI 50.0-59.9 Qualified Code(s) : E66.9 - Obesity, unspecified; Z68.43 - Body mass index (BMI) 50-59.9 , adult; Z68.43 - Body mass index (BMI) 50-59.9 , adult; Z68.43 - Body mass index (BMI) 50-59.9 , adult; Z68.43 - Body mass index (BMI) 50-59.9 , adult (5) HTN (hypertension) Current Visit: Yes Status: Acute Assessment and plan: Continue with home meds. She is on lisinopril. She takes Lasix as well. Qualifiers: Hypertension type: essential hypertension Qualified Code(s): I10 - Essential (primary) hypertension (6) Pulmonary emboli Current Visit: No Status: Acute Assessment and plan: She has a history of this. She is on xarelto. Qualifiers: Pulmonary embolism type: other Chronicity: acute Acute cor pulmonale presence: without acute cor pulmonale Qualified Code(s): I26.99 - Other pulmonary embolism without acute cor pulmonale (7) DVT prophylaxis Current Visit: Yes Status: Acute Assessment and plan: She is on Xarelto - Subjective Interval history: Patient was seen and examined. There is no acute events. She had a maximum temperature of 100.2 only. She is to have wound care. No other complaints. - Constitutional Vitals: Temp Pulse Resp BP Pulse Ox 98.6 F 91 18 116/71 95 08/20/17 10:27 08/20/17 10:27 08/20/17 10:27 08/20/17 10:27 08/20/17 10:27 General appearance: Present: cooperative, A&O X 3, no acute distress, answers questions appropriately Exam: GEN: NAD CVS: RRR. S1, S2, No m/r/g RESP: CTAB ABD: Soft, NT, ND, +BS. Obese. EXT: Both areas are dressed in the lower extremities with no surrounding discharge noted. I did not expose the area today. NEURO: Nonfocal Internal Medicine: Result - Labs CBC & Chem 7: 08/20/17 03:22 08/20/17 03:22 Labs: Short CBC 08/20/17 Range/Units 03:22 WBC 8.3 (4.3-11.1) K/mcL Hgb 10.9 L (11.5-15.4) g/dL Hct 35.4 (35.3-44.9) % Plt Count 331 (140-400) K/mcL Neutrophils # 5.0 (1.6-8.9) K/mcL BMP 08/20/17 03:22 Sodium 141 Potassium 3.9 Chloride 102 Carbon Dioxide 32 H BUN 9 Creatinine 0.60 Glucose 187 H Calcium 8.0 L Consult Discharge Plan - Plan Referrals: Kwabena Mattson MD [Primary Care Provider] -
[2017-08-20] MEDS: Insulin DETEMIR 100 UNIT/ML X5UNITS SQ SCH (14:53)
[2017-08-21] MEDS: *HR* Morphine 2 MG/ML SYRINGE IVP PRN ×3 (04:27→21:49)
[2017-08-21] MEDS: Miconazole 2% ointment 114 GM TUBE TP SCH ×3 (04:28→21:48)
[2017-08-21] MEDS: *HR* Heparin 5,000 UNIT/ML VIAL SQ SCH ×2 (05:32→17:46)
[2017-08-21] MEDS: Piperacillin/Tazobactam 3.375 GM/200 ML BAG IVPB SCH ×3 (05:32→21:46)
[2017-08-21] MEDS: Insulin LISPRO 300 UNITS/3 ML VIAL SQ SCH ×4 (08:41→21:50)
[2017-08-21] MEDS: Insulin DETEMIR 100 UNIT/ML X5UNITS SQ SCH (08:42)
[2017-08-21] MEDS: Gabapentin 400 MG CAPSULE PO SCH ×3 (08:42→21:47)
[2017-08-21] MEDS: Furosemide 40 MG TABLET PO SCH (08:42)
[2017-08-21] MEDS: Famotidine 20 MG TABLET PO SCH ×2 (08:42→16:19)
[2017-08-21] MEDS: *HR* Rivaroxaban 10 MG TABLET PO SCH (08:42)
--- NOTE | 2017-08-21 10:19 | Internal Med Progress Note ---
Date of Encounter: 08/21/17 Time of Encounter: 10:20 - Assessment and plan (1) Cellulitis Current Visit: Yes Status: Acute Assessment and plan: I think the issue more is the chronic lymphedema as well as the significant weight. We will continue with Zosyn. No surgical needs. She is growing Pseudomonas and strep agalactia. We will follow up on the final sensitivities and adjust antibiotics accordingly.I think we can get health social work professor to see the patient for possible placement. Continue with pain control. Qualifiers: Site of cellulitis: extremity Site of cellulitis of extremity: lower extremity Laterality: right Qualified Code(s): L03.115 - Cellulitis of right lower limb (2) Lymphedema of both lower extremities Current Visit: Yes Status: Acute Assessment and plan: This is being managed at the wound clinic. (3) Diabetes Current Visit: Yes Status: Acute Assessment and plan: Continue with insulin sliding scale for now. Glucoses still uncontrolled despite 20 units of Levemir. I think I will give her 30 units this morning. Continue with Accu-Cheks. Qualifiers: Diabetes mellitus type: type 2 Diabetes mellitus complication status: with circulatory complication Diabetes mellitus complication detail: with other circulatory complications Diabetes mellitus mcfp insulin use: without terminal manager use Qualified Code(s): E11.59 - Type 2 diabetes mellitus with other circulatory complications (4) Obesity Current Visit: Yes Status: Acute Assessment and plan: We will consult dietary. Qualifiers: Obesity type: unspecified obesity type Obesity classification: adult class 3 (BMI >= 40) Serious obesity comorbidity presence: unspecified whether serious comorbidity present Body mass index: BMI 50.0-59.9 Qualified Code(s) : E66.9 - Obesity, unspecified; Z68.43 - Body mass index (BMI) 50-59.9 , adult; Z68.43 - Body mass index (BMI) 50-59.9 , adult; Z68.43 - Body mass index (BMI) 50-59.9 , adult; Z68.43 - Body mass index (BMI) 50-59.9 , adult (5) HTN (hypertension) Current Visit: Yes Status: Acute Assessment and plan: Continue with home meds. She is on lisinopril. She takes Lasix as well. Qualifiers: Hypertension type: essential hypertension Qualified Code(s): I10 - Essential (primary) hypertension (6) Pulmonary emboli Current Visit: No Status: Acute Assessment and plan: She has a history of this. She is on xarelto. Qualifiers: Pulmonary embolism type: other Chronicity: acute Acute cor pulmonale presence: without acute cor pulmonale Qualified Code(s): I26.99 - Other pulmonary embolism without acute cor pulmonale (7) DVT prophylaxis Current Visit: Yes Status: Acute Assessment and plan: She is on Xarelto - Subjective Interval history: Patient was seen and examined. There is no acute events. Her MAXIMUM TEMPERATURE is 99.3. She is still having issues with pain. I exposed her lower extremities and uncovered the dressing. No other complaints. - Constitutional Vitals: Temp Pulse Resp BP Pulse Ox 99.3 F 82 12 112/71 92 08/21/17 07:00 08/21/17 07:00 08/21/17 07:00 08/21/17 07:00 08/21/17 07:00 General appearance: Present: cooperative, A&O X 3, no acute distress, answers questions appropriately Exam: GEN: NAD CVS: RRR. S1, S2, No m/r/g RESP: CTAB ABD: Soft, NT, ND, +BS. Obese. EXT: Lower extremities with areas of erythema in the lower extremities more significant on the right that is on the left. There is some minimal blood oozing from the right. Some granulation tissue starting to form. NEURO: Nonfocal Internal Medicine: Result - Labs CBC & Chem 7: 08/20/17 03:22 08/20/17 03:22 Consult Discharge Plan - Plan Referrals: Kwabena Mattson MD [Primary Care Provider] -
[2017-08-21] MEDS ORDERED: Insulin DETEMIR 100 UNIT/ML X5UNITS SQ ONE (10:20)
[2017-08-21] MEDS: *HR* HYDROcodone/Acet 5/325 mg TABLET PO PRN (11:32)
[2017-08-21] MEDS: Acetaminophen 325 MG TABLET PO PRN (16:19)
[2017-08-22] MEDS: Piperacillin/Tazobactam 3.375 GM/200 ML BAG IVPB SCH ×2 (06:01→13:19)
[2017-08-22] MEDS: *HR* Heparin 5,000 UNIT/ML VIAL SQ SCH (06:02)
[2017-08-22] MEDS: Famotidine 20 MG TABLET PO SCH (06:03)
[2017-08-22 07:50] VITALS: BP 119/70
[2017-08-22] MEDS ORDERED: Insulin DETEMIR 100 UNIT/ML X5UNITS SQ SCH ×2 (09:00→09:42)
[2017-08-22] MEDS: Insulin LISPRO 300 UNITS/3 ML VIAL SQ SCH ×2 (09:09→13:20)
[2017-08-22] MEDS: Furosemide 40 MG TABLET PO SCH (09:10)
[2017-08-22] MEDS: *HR* Rivaroxaban 10 MG TABLET PO SCH (09:10)
[2017-08-22] MEDS: Gabapentin 400 MG CAPSULE PO SCH (09:10)
[2017-08-22] MEDS: *HR* Morphine 2 MG/ML SYRINGE IVP PRN (09:16)
[2017-08-22] MEDS: Miconazole 2% ointment 114 GM TUBE TP SCH (09:19)
--- NOTE | 2017-08-22 09:56 | Discharge Summary ---
Date of Encounter: 08/22/17 Time of Encounter: 09:45 - Discharge Diagnosis (1) Cellulitis Priority: Primary Status: Acute Qualifiers: Site of cellulitis: extremity Site of cellulitis of extremity: lower extremity Laterality: right Qualified Code(s): L03.115 - Cellulitis of right lower limb (2) Lymphedema of both lower extremities Priority: Primary Status: Acute (3) Diabetes Priority: Secondary Status: Acute Qualifiers: Diabetes mellitus type: type 2 Diabetes mellitus complication status: with circulatory complication Diabetes mellitus complication detail: with other circulatory complications Diabetes mellitus correction insulin use: without correction use Qualified Code(s): E11.59 - Type 2 diabetes mellitus with other circulatory complications (4) Obesity Priority: Secondary Status: Acute Qualifiers: Obesity type: unspecified obesity type Obesity classification: adult class 3 (BMI >= 40) Serious obesity comorbidity presence: unspecified whether serious comorbidity present Body mass index: BMI 50.0-59.9 Qualified Code(s) : E66.9 - Obesity, unspecified; Z68.43 - Body mass index (BMI) 50-59.9 , adult; Z68.43 - Body mass index (BMI) 50-59.9 , adult; Z68.43 - Body mass index (BMI) 50-59.9 , adult; Z68.43 - Body mass index (BMI) 50-59.9 , adult (5) HTN (hypertension) Priority: Secondary Status: Acute Qualifiers: Hypertension type: essential hypertension Qualified Code(s): I10 - Essential (primary) hypertension (6) Pulmonary emboli Priority: Secondary Status: Acute Qualifiers: Pulmonary embolism type: other Chronicity: acute Acute cor pulmonale presence: without acute cor pulmonale Qualified Code(s): I26.99 - Other pulmonary embolism without acute cor pulmonale - Discharge Medications Prescriptions: HYDROcodone/Acet 5/325 mg [Steele 5-325 mg] 1 tab PO Q4HR PRN #10 tablet PRN Reason: Moderate Pain (4-6) Ciprofloxacin [Cipro] 500 mg PO BID #14 tablet Insulin DETEMIR [Levemir] 40 unit SQ DAILY #14 [id number] Miconazole 2% ointment [Aloe [place] Antifungal Ointment] 1 appl TP BID #1 tube Home Medications: Furosemide [Lasix] 40 mg PO DAILY 09/15/16 [History] Gabapentin [Neurontin] 400 mg PO TID 09/15/16 [History] GlipiZIDE [Glipizide Xl] 5 mg PO DAILY 09/15/16 [History] Lisinopril [Zestril] 2.5 mg PO DAILY 09/15/16 [History] Ranitidine HCl [Acid Collections And Archives Director] 150 mg PO BID 09/15/16 [History] Sertraline [Zoloft] 50 mg PO DAILY 09/15/16 [History] metFORMIN [Glucophage] 1,000 mg PO BID 09/15/16 [History] Ferrous Sulfate, Dried [Iron] 160 mg PO DAILY 11/18/16 [History] EPINEPHrine [Epipen] 0.3 mg IM ONCE PRN #1 kit 07/10/17 [Rx] Acetaminophen [Tylenol Arthritis] 650 mg PO Q6H PRN 08/17/17 [History] Insulin NPH Hum/Reg Insulin Hm [Novolin 70-30 100 Unit/ml Vial] 0 unit SQ TID PRN 08/17/17 [History] Rivaroxaban [Xarelto] 20 mg PO DAILY 08/17/17 [History] Ciprofloxacin [Cipro] 500 mg PO BID #14 tablet 08/22/17 [Rx] HYDROcodone/Acet 5/325 mg [Steele 5-325 mg] 1 tab PO Q4HR PRN #10 tablet [Rx] Insulin DETEMIR [Levemir] 40 unit SQ DAILY #14 [id number] 08/22/17 [Rx] Miconazole 2% ointment [Aloe [place] Antifungal Ointment] 1 appl TP BID #1 tube [Rx] Allergies/Adverse Reactions: 3 Allergy/AdvReac Type Severity Reaction Status Date / Time adhesive tape Allergy Rash Verified 08/17/17 15:24 Oxycodone AdvReac Anxiety Verified 08/17/17 15:24 Date of admission: 08/17/17 22:27 Primary care physician: Kwabena Mattson MD Consults: 08/17/17 22:32 Consult to Surgery [CONS] Routine Consulting Provider: [facility] Reason for Consult: Chronic cellulitis. Dr Graff sees the patient in the wound clinic. Call Completed: No Consult to Wound Care [CONS] Routine Reason for Consult: Cleansing and dressing recommendations Call Completed: No 08/18/17 09:19 consult to referral and information aide [Consult to Nutrition] [CONS] Routine Comment: Consulting Provider: NUTRITION Reason for Dietary Consult: Diet Education 08/20/17 11:08 Consult to Occupational Therapy [CONS] Routine Comment: Evaluate, develop and implement POC Reason for Consult: therapy/placement needs Consult to Physical Therapy [CONS] Routine Comment: Evaluate, develop and implement POC Reason for Consult: PT eval 08/22/17 09:47 Consult to Deputy Head [CONS] Routine Reason for SW Consult: Home health vs. ECF placement to continue antibiotic therapy - Patient Status Disposition: Transfer SNF Condition: Fair Overall status at discharge: patient is back to baseline - Discharge Instructions Instructions: Cellulitis (DC), Peripheral Vascular Disorders (DC) Follow Up With: Kwabena Mattson MD [Primary Care Provider] - Roni Graff MD [Partnered Physician] - (2 weeks) - Diet and Activity Activity: resume usual activities as tolerated Diet: diabetic diet Hospital course: Ms. Lincoln is a 56 year old female with a PMH of PE, DVT, DM, fibromyalgia, HTN and chronic venous hypertension. The patient reported she has bilateral lower extremity cellulitis for greater than 1 month. She reportws that she sees Dr. Graff for wound care. She went to wound care clinic and was found to have an increase in swelling and erythema and was directed to the for Doppler ultrasound to rule out DVT due to history. DVT was ruled out. she was admitted to the hospitalist service for lower extremity wounds. Surgery was seeing the patient and there was no surgical intervention. She was put on broad-spectrum antibiotics with significant wound care. She did well while she was in the hospital and she was febrile for a couple days and this broke for 24 hours before discharge. Cultures from the wound grew Pseudomonas and strep agalactiae. She was switched to ciprofloxacin at discharge. She will follow up with surgery. [facility]. Her sugar control was an issue she is hospitalized. I had to increase her Levemir to 40 units daily on day of discharge. I had to consistently increase her Levemir on a daily basis. This needs to monitor this and adjust per glucose readings. - Time Spent with Patient Total time spent providing and/or coordinating discharge services: Greater than 30 minutes - Constitutional Vitals: Temp Pulse Resp BP Pulse Ox 99.5 F 84 15 119/70 95 12/23/17 07:27 08/22/17 07:27 08/22/17 07:27 08/22/17 07:27 08/22/17 07:27 General appearance: Present: cooperative, A&O X 3, no acute distress, answers questions appropriately Exam: GEN: NAD CVS: RRR. S1, S2, No m/r/g RESP: CTAB ABD: Soft, NT, ND, +BS. Obese. EXT: Lower extremities with areas of erythema in the lower extremities more significant on the right that is on the left. There is some minimal blood oozing from the right. Some granulation tissue starting to form. NEURO: Nonfocal
--- NOTE | 2017-08-22 09:59 | Physician Discharge Referral ---
ExtendedCare Referral Info Institutional Level of Care: Skilled - Diagnosis (1) Cellulitis Priority: Primary Status: Acute (2) Lymphedema of both lower extremities Priority: Primary Status: Acute (3) Diabetes Priority: Secondary Status: Acute (4) Obesity Priority: Secondary Status: Acute (5) HTN (hypertension) Priority: Secondary Status: Acute (6) Pulmonary emboli Priority: Secondary Status: Acute - Transfer Medications Prescriptions: HYDROcodone/Acet 5/325 mg [[place] 5-325 mg] 1 tab PO Q4HR PRN #10 tablet PRN Reason: Moderate Pain (4-6) Ciprofloxacin [Cipro] 500 mg PO BID #14 tablet Insulin DETEMIR [Levemir] 40 unit SQ DAILY #14 [id number] Miconazole 2% ointment [Al[place] Antifungal Ointment] 1 appl TP BID #1 tube Home Medications: Furosemide [Lasix] 40 mg PO DAILY 09/15/16 [History] Gabapentin [Neurontin] 400 mg PO TID 09/15/16 [History] GlipiZIDE [Glipizide Xl] 5 mg PO DAILY 09/15/16 [History] Lisinopril [Zestril] 2.5 mg PO DAILY 09/15/16 [History] Ranitidine HCl [Acid [employer]] 150 mg PO BID 09/15/16 [History] Sertraline [Zoloft] 50 mg PO DAILY 09/15/16 [History] metFORMIN [Glucophage] 1,000 mg PO BID 09/15/16 [History] Ferrous Sulfate, Dried [Iron] 160 mg PO DAILY 11/18/16 [History] EPINEPHrine [Epipen] 0.3 mg IM ONCE PRN #1 kit 07/10/17 [Rx] Acetaminophen [Tylenol Arthritis] 650 mg PO Q6H PRN 08/17/17 [History] Insulin NPH Hum/Reg Insulin Hm [Novolin 70-30 100 Unit/ml Vial] 0 unit SQ TID PRN 08/17/17 [History] Rivaroxaban [Xarelto] 20 mg PO DAILY 08/17/17 [History] Ciprofloxacin [Cipro] 500 mg PO BID #14 tablet 08/22/17 [Rx] HYDROcodone/Acet 5/325 mg [[place] 5-325 mg] 1 tab PO Q4HR PRN #10 tablet [Rx] Insulin DETEMIR [Levemir] 40 unit SQ DAILY #14 [id number] 08/22/17 [Rx] Miconazole 2% ointment [[place] Antifungal Ointment] 1 appl TP BID #1 tube [Rx] Allergies/Adverse Reactions: 3 Allergy/AdvReac Type Severity Reaction Status Date / Time adhesive tape Allergy Rash Verified 08/17/17 15:24 Oxycodone AdvReac Anxiety Verified 08/17/17 15:24 - Respiratory Orders Smoking Cessation: Smoking cessation has been advised. For more information, call the [place] Tobacco Quit Line at 3-853-YZHU-NOW. - Rehabiliation Orders Rehab Potential: Fair (diabetic) Rehab Orders: Evaluation for Physical Therapy (apply Al[place] AF with 2% miconazole Q12 hours.) - Diet Orders Regular (diabetic) CERTIFICATION: I certify that the transfer of the above named patient to an Extended Care Facility is necessary for the continuing treatment of the diagnosis listed. The above information is true and accurate reflection of patient's current condition. Confidential - Redisclosure prohibited without a patient's written consent.
[2017-08-22] MEDS ORDERED: Insulin DETEMIR 100 UNIT/ML X5UNITS SQ ONE (10:00)
[2017-08-23] MEDS ORDERED: Insulin DETEMIR 100 UNIT/ML X5UNITS SQ SCH (09:00)
== END 2017-08-22 14:45 | DRG 603 ==
LOC: UNDODISIN → EMEROO 15:10 → 3ANU 22:27
PROVIDERS: ADMIT Family Medicine; ATTEND Internal Medicine

== ENCOUNTER 2019-11-17 11:13 | Observation (INO) ==
[2019-11-17] MEDS ORDERED: 0.9 % Sodium Chloride 1,000 ML IVC ONE (11:29)
[2019-11-17 12:02] LABS: Hematocrit 37.8 % (35.3-44.9); Mean Corpuscular HGB Conc 31.7 g/dL (31.6-35.5); Mean Corpuscular Hemoglobin 26.8 pg (28.0-33.3); Mean Corpuscular Volume 84.4 fL (83.0-100.0); Mean Platelet Volume 9.4 fL (9.4-12.4); Platelet Count 215 K/mcL (140-400); Red Blood Count 4.48 M/mcL (3.82-4.97); Red Cell Distribution Width 13.2 % (11.5-14.5); White Blood Count 12.4 K/mcL (4.3-11.1)
[2019-11-17 12:04] LABS: VBG HCO3 32 mEq/L (21-27); VBG PCO2 51 mmHg (41-51); VBG PO2 53 mmHg (25-50)
[2019-11-17 12:15] LABS: Bilirubin,Urine Negative (Negative); Blood,Urine Negative (Negative); Color,Urine Yellow (Yellow); Glucose,Urine (UA) Normal (Normal); Ketones,Urine 15 mg/dL (Negative); Leukocyte Esterase,Urine Trace (Negative); Nitrite,Urine Negative (Negative); PH,Urine 5.5 pH Units (5.0-8.0); Protein,Urine Negative (Neg-Trace); Specific Gravity,Urine 1.023 (1.010-1.025); Urobilinogen,Urine Normal (Normal)
[2019-11-17 12:18] LABS: Bacteria,Urine None Seen per hpf (None-Few); Squamous Epithelial Cell,Urine Many per lpf (None-Few); WBC,Urine 15-30 per hpf (0-3)
[2019-11-17 12:20] LABS: Clarity,Urine Slightly Hazy (Clear)
[2019-11-17 12:31] LABS: Prothrombin Time 22.5 Seconds (9.4-12.1)
[2019-11-17 12:32] LABS: Activated Partial Thrombo Time 31.8 Seconds (26.0-36.0)
[2019-11-17] MEDS ORDERED: Ondansetron 4 MG/2 ML VIAL IVP ONE ×2 (12:35→21:02)
[2019-11-17 12:36] LABS: Alanine Aminotransferase 6 Units/L (7-52); Albumin 3.8 g/dL (3.5-5.7); Albumin/Globulin Ratio 1.4 (1.1-2.2); Alkaline Phosphatase 55 Units/L (34-104); Aspartate Amino Transferase 6 Units/L (13-39); BUN/Creatinine Ratio 15 (6-26); Bilirubin,Total 0.5 mg/dL (0.3-1.0); Blood Urea Nitrogen 10 mg/dL (8-23); Calcium 8.6 mg/dL (8.6-10.3); Carbon Dioxide 31 mEq/L (23-29); Chloride 98 mEq/L (98-107); Globulin 2.8 g/dL (2.4-3.5); Glucose 200 mg/dL (70-105); Lipase 13 Units/L (11-82); Osmolality,Calculated 289 (280-300); Potassium 2.8 mEq/L (3.5-5.1); Sodium 137 mEq/L (136-145); Total Protein 6.6 g/dL (6.4-8.9); eGFR For African Americans > 60 (> 60); eGFR For Non-African Americans > 60 (> 60)
[2019-11-17 12:44] LABS: Troponin I < 0.03 ng/mL (< 0.04)
[2019-11-17] MEDS ORDERED: Isovue-370 500 ML BOTTLE IVP ONE (12:45)
[2019-11-17] MEDS ORDERED: Potassium Chloride Elixir 20 MEQ/15 ML UDC PO ONE (12:46)
[2019-11-17 12:53] LABS: Mucus,Urine Many per lpf (Few)
[2019-11-17 12:54] LABS: Hyaline Casts,Urine Few per lpf (None-Few)
[2019-11-17 12:58] LABS: Yeast,Urine Many per hpf (None Seen)
[2019-11-17] MEDS ORDERED: *HR* Promethazine 25 MG/ML VIAL IVP ONE (14:56)
[2019-11-17] MEDS ORDERED: cefTRIAXone 1,000 MG in Water for inj. (sterile) 10 ML IVP ONE (15:08)
[2019-11-17] MEDS ORDERED: Promethazine 25 MG in 0.9 % Sodium Chloride 50 ML IVPB STA (15:24)
[2019-11-17] MEDS ORDERED: Naloxone 0.4 MG/ML INJ IVP PRN (16:01)
[2019-11-17] MEDS ORDERED: diazePAM 5 MG TABLET PO PRN (16:50)
[2019-11-17] MEDS ORDERED: EPINEPHrine 1 MG/ML VIAL IM PRN (16:50)
[2019-11-17] MEDS ORDERED: D5% in Water 1,000 ML IVC PRN (17:38)
[2019-11-17] MEDS ORDERED: *HR* Dextrose 50 % in Water (Syg) 50 ML SYRINGE IVP PRN (17:38)
[2019-11-17] MEDS ORDERED: Dextrose Gel 15 GM/37.5 ML TUBE PO PRN ×2 (17:38)
[2019-11-17] MEDS ORDERED: *HR* Promethazine 25 MG/ML VIAL IVP PRN (17:45)
[2019-11-17] MEDS: Insulin LISPRO 300 UNITS/3 ML VIAL SQ SCH ×2 (17:56→20:42)
[2019-11-17] MEDS: 0.9 % Sodium Chloride w KCl 40 MEQ/1,000 ML MLS IVC SCH (17:56)
[2019-11-17] MEDS: Gabapentin 400 MG CAPSULE PO SCH (17:57)
[2019-11-17] MEDS: Insulin DETEMIR 100 UNIT/ML X5UNITS SQ SCH (20:49)
[2019-11-17] MEDS: *HR* OxyCODONE Immed Rel 5 MG TABLET PO PRN (20:54)
[2019-11-17] MEDS ORDERED: Famotidine 20 MG TABLET PO SCH (21:00)
[2019-11-17] MEDS: Celecoxib 100 MG CAPSULE PO SCH (21:32)
[2019-11-18] MEDS: 0.9 % Sodium Chloride w KCl 40 MEQ/1,000 ML MLS IVC SCH ×3 (01:32→17:21)
[2019-11-18] MEDS ORDERED: Acetaminophen 325 MG TABLET PO PRN (05:00)
[2019-11-18] MEDS: Gabapentin 300 MG CAPSULE PO SCH ×2 (05:38→12:46)
[2019-11-18 06:13] LABS: Basophils # 0.1 K/mcL (0.0-0.2); Basophils % 0.5 %; Hematocrit 35.7 % (35.3-44.9); Hemoglobin 10.9 g/dL (11.5-15.4); Immature Granulocytes % 0.3 % (0-4); Lymphocytes # 1.8 K/mcL (0.6-4.6); Lymphocytes % 16.8 %; Mean Corpuscular HGB Conc 30.5 g/dL (31.6-35.5); Mean Corpuscular Hemoglobin 26.7 pg (28.0-33.3); Mean Corpuscular Volume 87.3 fL (83.0-100.0); Mean Platelet Volume 9.2 fL (9.4-12.4); Monocytes # 0.5 K/mcL (0.0-1.3); Monocytes % 5.1 %; Neutrophils # 8.2 K/mcL (1.6-8.9); Platelet Count 224 K/mcL (140-400); Red Blood Count 4.09 M/mcL (3.82-4.97); Red Cell Distribution Width 13.2 % (11.5-14.5); Segmented Neutrophils % 77.3 %; White Blood Count 10.6 K/mcL (4.3-11.1)
[2019-11-18 06:32] LABS: BUN/Creatinine Ratio 12 (6-26); Blood Urea Nitrogen 8 mg/dL (8-23); Calcium 7.9 mg/dL (8.6-10.3); Carbon Dioxide 31 mEq/L (23-29); Chloride 105 mEq/L (98-107); Glucose 153 mg/dL (70-105); Osmolality,Calculated 293 (280-300); Sodium 141 mEq/L (136-145); eGFR For African Americans > 60 (> 60); eGFR For Non-African Americans > 60 (> 60)
[2019-11-18] MEDS: Insulin LISPRO 300 UNITS/3 ML VIAL SQ SCH ×4 (09:26→20:26)
[2019-11-18] MEDS: lisinopriL 5 MG TABLET PO SCH (09:35)
[2019-11-18] MEDS: Pantoprazole 40 MG VIAL IVP SCH (09:35)
[2019-11-18] MEDS: Ascorbic Acid 500 MG TABLET PO SCH (09:35)
[2019-11-18] MEDS: Celecoxib 100 MG CAPSULE PO SCH ×2 (09:35→20:24)
[2019-11-18] MEDS: Insulin DETEMIR 100 UNIT/ML X5UNITS SQ SCH ×2 (09:36→20:24)
[2019-11-18] MEDS ORDERED: *HR* Rivaroxaban 10 MG TABLET PO SCH (17:00)
[2019-11-18] MEDS: Gabapentin 400 MG CAPSULE PO SCH (17:21)
[2019-11-18] MEDS: *HR* OxyCODONE Immed Rel 5 MG TABLET PO PRN (17:23)
[2019-11-19] MEDS: 0.9 % Sodium Chloride w KCl 40 MEQ/1,000 ML MLS IVC SCH ×2 (02:12→08:04)
[2019-11-19] MEDS: Gabapentin 300 MG CAPSULE PO SCH ×2 (05:14→11:46)
[2019-11-19] MEDS: Insulin LISPRO 300 UNITS/3 ML VIAL SQ SCH ×2 (08:04→11:45)
[2019-11-19] MEDS: Insulin DETEMIR 100 UNIT/ML X5UNITS SQ SCH (08:04)
[2019-11-19] MEDS: Ascorbic Acid 500 MG TABLET PO SCH (08:04)
[2019-11-19] MEDS: lisinopriL 5 MG TABLET PO SCH (08:04)
[2019-11-19] MEDS: Pantoprazole 40 MG VIAL IVP SCH (08:05)
[2019-11-19] MEDS: Celecoxib 100 MG CAPSULE PO SCH (08:05)
[2019-11-19 08:27] LABS: Basophils % 0.4 %; Eosinophils # 0.1 K/mcL (0.0-0.6); Eosinophils % 1.3 %; Hematocrit 37.4 % (35.3-44.9); Hemoglobin 11.4 g/dL (11.5-15.4); Immature Granulocytes % 0.4 % (0-4); Lymphocytes % 10.4 %; Mean Corpuscular HGB Conc 30.5 g/dL (31.6-35.5); Mean Corpuscular Hemoglobin 26.6 pg (28.0-33.3); Mean Corpuscular Volume 87.4 fL (83.0-100.0); Mean Platelet Volume 9.3 fL (9.4-12.4); Monocytes # 0.4 K/mcL (0.0-1.3); Monocytes % 4.3 %; Neutrophils # 8.3 K/mcL (1.6-8.9); Platelet Count 227 K/mcL (140-400); Red Blood Count 4.28 M/mcL (3.82-4.97); Red Cell Distribution Width 13.3 % (11.5-14.5); Segmented Neutrophils % 83.2 %
[2019-11-19 08:48] LABS: BUN/Creatinine Ratio 13 (6-26); Blood Urea Nitrogen 7 mg/dL (8-23); Carbon Dioxide 28 mEq/L (23-29); Chloride 110 mEq/L (98-107); Glucose 181 mg/dL (70-105); Osmolality,Calculated 295 (280-300); Sodium 141 mEq/L (136-145); eGFR For African Americans > 60 (> 60); eGFR For Non-African Americans > 60 (> 60)
[2019-11-19 11:02] VITALS: BP 130/77
== END 2019-11-19 14:38 | disposition home or self-care (01) ==
LOC: EMEROOARM 11:13 → 2ANU 11:13
PROVIDERS: ADMIT Internal Medicine; ATTEND Internal Medicine

== ENCOUNTER 2021-03-26 17:59 | Inpatient (IN) ==
[2021-03-26 20:15] LABS: Basophils # 0.1 K/mcL (0.0-0.2); Basophils % 0.3 %; Eosinophils % 0.3 %; Hematocrit 38.3 % (35.3-44.9); Hemoglobin 12.3 g/dL (11.5-15.4); Immature Granulocytes % 0.7 % (0-4); Lymphocytes # 1.6 K/mcL (0.6-4.6); Lymphocytes % 10.3 %; Mean Corpuscular HGB Conc 32.1 g/dL (31.6-35.5); Mean Platelet Volume 8.8 fL (9.4-12.4); Monocytes # 0.9 K/mcL (0.0-1.3); Monocytes % 5.4 %; Neutrophils # 13.2 K/mcL (1.6-8.9); Platelet Count 259 K/mcL (140-400); Red Cell Distribution Width 13.4 % (11.5-14.5); White Blood Count 15.9 K/mcL (4.3-11.1)
[2021-03-26 20:30] LABS: Bacteria,Urine Moderate per hpf (None-Few); Bilirubin,Urine Negative (Negative); Blood,Urine Small (Negative); Clarity,Urine Turbid (Clear); Color,Urine Yellow (Yellow); Glucose,Urine (UA) 50 mg/dL (Normal); Ketones,Urine Negative (Negative); Leukocyte Esterase,Urine Small (Negative); Mucus,Urine Few per lpf (None-Few); Nitrite,Urine Positive (Negative); Protein,Urine 100 mg/dL (Neg-Trace); Squamous Epithelial Cell,Urine Moderate per hpf (None-Few); Urobilinogen,Urine Normal (Normal); WBC,Urine 30-50 per hpf (0-3)
[2021-03-26 20:37] LABS: Albumin 3.7 g/dL (3.5-5.7); Bilirubin,Direct 0.1 mg/dL (0.0-0.2); Bilirubin,Indirect 0.4 mg/dL (0.0-1.0); Bilirubin,Total 0.5 mg/dL (0.3-1.0); Globulin 3.8 g/dL (2.4-3.5); Potassium 3.5 mEq/L (3.5-5.1); Total Protein 7.5 g/dL (6.4-8.9)
[2021-03-26 20:42] LABS: Troponin I 0.06 ng/mL (< 0.04)
[2021-03-26] MEDS ORDERED: cefTRIAXone 1,000 MG in Water for inj. (sterile) 10 ML IVP ONE (21:20)
[2021-03-26] MEDS ORDERED: 0.9 % Sodium Chloride 1,000 ML IV ONE (22:32)
[2021-03-26] MEDS ORDERED: *HR* Metformin 500 MG TABLET PO STA (22:33)
[2021-03-26] MEDS ORDERED: Gabapentin 400 MG CAPSULE PO ONE (22:36)
[2021-03-26] MEDS ORDERED: *HR* Metformin 500 MG TABLET PO ONE (22:49)
[2021-03-26] MEDS ORDERED: 0.9 % Sodium Chloride 1,000 ML IVC SCH (23:45)
[2021-03-26] MEDS ORDERED: Ondansetron 4 MG/2 ML VIAL IVP PRN (23:45)
[2021-03-26] MEDS ORDERED: Naloxone 0.4 MG/ML INJ IVP PRN (23:45)
[2021-03-27] MEDS ORDERED: *HR* Dextrose 50 % in Water (Vial) 50 ML VIAL IVP PRN ×2 (00:18→17:25)
[2021-03-27] MEDS ORDERED: Dextrose Gel 15 GM/37.5 ML TUBE PO PRN ×4 (00:18→17:25)
[2021-03-27] MEDS ORDERED: D5% in Water 1,000 ML IVC PRN ×2 (00:18→17:25)
[2021-03-27] MEDS ORDERED: Azithromycin 500 MG in 0.9 % Sodium Chloride 250 ML IVPB SCH (02:00)
[2021-03-27 03:04] LABS: Calcium 8.3 mg/dL (8.6-10.3); Potassium 3.4 mEq/L (3.5-5.1)
[2021-03-27 04:26] LABS: Hemoglobin 10.1 g/dL (11.5-15.4); Red Blood Count 3.69 M/mcL (3.82-4.97); White Blood Count 14.2 K/mcL (4.3-11.1)
[2021-03-27 04:27] LABS: Hematocrit 32.7 % (35.3-44.9); Mean Corpuscular HGB Conc 30.9 g/dL (31.6-35.5); Mean Corpuscular Hemoglobin 27.4 pg (28.0-33.3); Mean Corpuscular Volume 88.6 fL (83.0-100.0); Mean Platelet Volume 9.3 fL (9.4-12.4); Platelet Count 234 K/mcL (140-400); Red Cell Distribution Width 13.7 % (11.5-14.5)
[2021-03-27] MEDS: Insulin LISPRO 300 UNITS/3 ML VIAL SUBQ SCH ×4 (05:45→21:56)
[2021-03-27] MEDS ORDERED: 0.9 % Sodium Chloride 1,000 ML IVC SCH (06:43)
[2021-03-27] MEDS: Ringers Solution, Lactated 1,000 ML IVC SCH ×2 (08:34→09:46)
[2021-03-27] MEDS ORDERED: Potassium Chloride 20 MEQ, Lidocaine 1% 2 ML in 0.9 % Sodium Chloride 250 ML IVPB ONE (09:00)
[2021-03-27] MEDS ORDERED: *HR* Belladonna Alkaloids/Opium 30 MG RECTAL SUPPOSITORY RC ONE (15:10)
[2021-03-27] MEDS ORDERED: Isovue-300 50ML VIAL ONE (15:11)
[2021-03-27] MEDS ORDERED: *HR* Propofol 200 MG/20 ML VIAL IVP ONE (15:32)
[2021-03-27] MEDS ORDERED: *HR* FentaNYL (PF) 100 MCG/2 ML VIAL ONE (15:32)
[2021-03-27] MEDS ORDERED: Ondansetron 4 MG/2 ML VIAL ONE (15:32)
[2021-03-27] MEDS ORDERED: Lidocaine -MPF 2% 2 ML VIAL ONE (15:32)
[2021-03-27] MEDS ORDERED: Ondansetron 4 MG/2 ML VIAL IVP PRN (17:25)
[2021-03-27] MEDS ORDERED: Naloxone 0.4 MG/ML INJ IVP PRN ×2 (17:25)
[2021-03-27] MEDS ORDERED: Insulin LISPRO 300 UNITS/3 ML VIAL SUBQ SCH (18:00)
[2021-03-27] MEDS ORDERED: cefTRIAXone 1,000 MG in 0.9 % Sodium Chloride Mini Bag 100 ML IVPB SCH (18:00)
[2021-03-27] MEDS: Acetaminophen 325 MG TABLET PO PRN (19:57)
[2021-03-27] MEDS: Insulin DETEMIR 100 UNIT/ML X5UNITS SUBQ SCH (20:05)
[2021-03-27] MEDS ORDERED: NON-FORMULARY MEDICATION 1 EACH EACH (Insulin Glargine,Hum.Rec.Anlog [Basaglar Kwikpen U-1 SQ SCH (21:00)
[2021-03-27] MEDS: Cefepime HCl 1,000 MG in Water for inj. (sterile) 10 ML IVP SCH (21:54)
[2021-03-27] MEDS ORDERED: *HR* Metformin 500 MG TABLET PO ONE (22:37)
[2021-03-28 05:05] LABS: Basophils % 0.2 %; Hematocrit 33.6 % (35.3-44.9); Immature Granulocytes % 0.6 % (0-4); Lymphocytes # 0.7 K/mcL (0.6-4.6); Lymphocytes % 5.2 %; Mean Corpuscular HGB Conc 29.8 g/dL (31.6-35.5); Mean Corpuscular Volume 90.6 fL (83.0-100.0); Monocytes # 0.7 K/mcL (0.0-1.3); Monocytes % 5.2 %; Neutrophils # 11.1 K/mcL (1.6-8.9); Platelet Count 249 K/mcL (140-400); Red Blood Count 3.71 M/mcL (3.82-4.97); Red Cell Distribution Width 13.7 % (11.5-14.5); Segmented Neutrophils % 88.8 %; White Blood Count 12.5 K/mcL (4.3-11.1)
[2021-03-28 05:23] LABS: Estimated Average Glucose 209 mg/dl; Hemoglobin A1C 8.9 %
[2021-03-28 05:36] LABS: BUN/Creatinine Ratio 13 (6-26); Blood Urea Nitrogen 20 mg/dL (8-23); Calcium 8.1 mg/dL (8.6-10.3); Carbon Dioxide 26 mEq/L (23-29); Chloride 102 mEq/L (98-107); Glucose 354 mg/dL (70-105); Osmolality,Calculated 301 (280-300); Potassium 4.5 mEq/L (3.5-5.1); Sodium 137 mEq/L (136-145); Troponin I < 0.03 ng/mL (< 0.04); eGFR For African Americans 42 (> 60); eGFR For Non-African Americans 35 (> 60)
[2021-03-28] MEDS: Insulin LISPRO 300 UNITS/3 ML VIAL SUBQ SCH ×4 (08:42→22:07)
[2021-03-28] MEDS: Cefepime HCl 1,000 MG in Water for inj. (sterile) 10 ML IVP SCH ×2 (08:43→22:03)
[2021-03-28] MEDS: Magnesium Oxide 400 MG TABLET PO SCH (08:44)
[2021-03-28] MEDS: Ascorbic Acid 500 MG TABLET PO SCH (08:44)
[2021-03-28] MEDS: *HR* Rivaroxaban 10 MG TABLET PO SCH (08:44)
[2021-03-28] MEDS: Acetaminophen 325 MG TABLET PO PRN ×2 (09:14→17:32)
[2021-03-28] MEDS ORDERED: 0.9 % Sodium Chloride 1,000 ML IV ONE (17:24)
[2021-03-28] MEDS: Doxycycline 100 MG in 0.9 % Sodium Chloride Mini Bag 100 ML IVPB SCH (21:58)
[2021-03-28] MEDS: Insulin DETEMIR 100 UNIT/ML X5UNITS SUBQ SCH (22:04)
[2021-03-29 03:16] LABS: Basophils % 0.3 %; Eosinophils # 0.1 K/mcL (0.0-0.6); Eosinophils % 0.9 %; Hematocrit 32.1 % (35.3-44.9); Hemoglobin 9.7 g/dL (11.5-15.4); Immature Granulocytes % 0.6 % (0-4); Lymphocytes % 8.7 %; Mean Corpuscular HGB Conc 30.2 g/dL (31.6-35.5); Mean Corpuscular Hemoglobin 26.9 pg (28.0-33.3); Mean Corpuscular Volume 88.9 fL (83.0-100.0); Mean Platelet Volume 9.3 fL (9.4-12.4); Monocytes # 0.9 K/mcL (0.0-1.3); Monocytes % 7.9 %; Neutrophils # 9.6 K/mcL (1.6-8.9); Platelet Count 270 K/mcL (140-400); Red Blood Count 3.61 M/mcL (3.82-4.97); Red Cell Distribution Width 13.8 % (11.5-14.5); Segmented Neutrophils % 81.6 %; White Blood Count 11.7 K/mcL (4.3-11.1)
[2021-03-29] MEDS: Doxycycline 100 MG in 0.9 % Sodium Chloride Mini Bag 100 ML IVPB SCH ×2 (05:30→17:55)
[2021-03-29] MEDS: Insulin LISPRO 300 UNITS/3 ML VIAL SUBQ SCH ×4 (09:05→20:41)
[2021-03-29] MEDS: Cefepime HCl 1,000 MG in Water for inj. (sterile) 10 ML IVP SCH ×2 (09:05→20:38)
[2021-03-29] MEDS: *HR* Rivaroxaban 10 MG TABLET PO SCH (09:06)
[2021-03-29] MEDS: Ascorbic Acid 500 MG TABLET PO SCH (09:07)
[2021-03-29] MEDS: Magnesium Oxide 400 MG TABLET PO SCH (09:07)
[2021-03-29] MEDS: Insulin DETEMIR 100 UNIT/ML X5UNITS SUBQ SCH (20:40)
[2021-03-30 03:23] LABS: Basophils % 0.2 %; Hematocrit 32.6 % (35.3-44.9); Hemoglobin 10.1 g/dL (11.5-15.4); Immature Granulocytes % 0.3 % (0-4); Lymphocytes # 0.9 K/mcL (0.6-4.6); Lymphocytes % 10.1 %; Mean Corpuscular Hemoglobin 27.4 pg (28.0-33.3); Mean Corpuscular Volume 88.3 fL (83.0-100.0); Mean Platelet Volume 8.9 fL (9.4-12.4); Monocytes # 0.7 K/mcL (0.0-1.3); Neutrophils # 7.4 K/mcL (1.6-8.9); Platelet Count 308 K/mcL (140-400); Red Blood Count 3.69 M/mcL (3.82-4.97); Red Cell Distribution Width 13.8 % (11.5-14.5); Segmented Neutrophils % 81.4 %; White Blood Count 9.1 K/mcL (4.3-11.1)
[2021-03-30 03:37] LABS: BUN/Creatinine Ratio 19 (6-26); Blood Urea Nitrogen 20 mg/dL (8-23); Calcium 8.3 mg/dL (8.6-10.3); Carbon Dioxide 26 mEq/L (23-29); Chloride 104 mEq/L (98-107); Glucose 242 mg/dL (70-105); Osmolality,Calculated 297 (280-300); Potassium 4.1 mEq/L (3.5-5.1); Sodium 138 mEq/L (136-145); eGFR For African Americans > 60 (> 60); eGFR For Non-African Americans 54 (> 60)
[2021-03-30] MEDS: Doxycycline 100 MG in 0.9 % Sodium Chloride Mini Bag 100 ML IVPB SCH (05:13)
[2021-03-30] MEDS: Insulin DETEMIR 100 UNIT/ML X5UNITS SUBQ SCH ×2 (07:55→20:14)
[2021-03-30] MEDS: Cefepime HCl 1,000 MG in Water for inj. (sterile) 10 ML IVP SCH ×2 (07:55→20:40)
[2021-03-30] MEDS: Insulin LISPRO 300 UNITS/3 ML VIAL SUBQ SCH ×4 (07:55→22:16)
[2021-03-30] MEDS: Magnesium Oxide 400 MG TABLET PO SCH (07:56)
[2021-03-30] MEDS: Ascorbic Acid 500 MG TABLET PO SCH (07:56)
[2021-03-30] MEDS: *HR* Rivaroxaban 10 MG TABLET PO SCH (07:56)
[2021-03-30] MEDS: Acetaminophen 325 MG TABLET PO PRN (11:19)
[2021-03-30] MEDS: Doxycycline 100 MG CAPSULE PO SCH (20:14)
[2021-03-31 03:39] LABS: Basophils # 0.1 K/mcL (0.0-0.2); Basophils % 0.5 %; Eosinophils # 0.1 K/mcL (0.0-0.6); Eosinophils % 1.1 %; Hematocrit 32.9 % (35.3-44.9); Hemoglobin 10.3 g/dL (11.5-15.4); Immature Granulocytes % 0.5 % (0-4); Lymphocytes # 1.1 K/mcL (0.6-4.6); Lymphocytes % 10.9 %; Mean Corpuscular HGB Conc 31.3 g/dL (31.6-35.5); Mean Corpuscular Hemoglobin 27.7 pg (28.0-33.3); Mean Corpuscular Volume 88.4 fL (83.0-100.0); Mean Platelet Volume 8.8 fL (9.4-12.4); Monocytes # 0.7 K/mcL (0.0-1.3); Monocytes % 7.2 %; Platelet Count 337 K/mcL (140-400); Red Blood Count 3.72 M/mcL (3.82-4.97); Red Cell Distribution Width 13.8 % (11.5-14.5); Segmented Neutrophils % 79.8 %
[2021-03-31 03:58] LABS: BUN/Creatinine Ratio 18 (6-26); Blood Urea Nitrogen 17 mg/dL (8-23); Calcium 8.6 mg/dL (8.6-10.3); Carbon Dioxide 28 mEq/L (23-29); Chloride 103 mEq/L (98-107); Glucose 247 mg/dL (70-105); Osmolality,Calculated 296 (280-300); Sodium 138 mEq/L (136-145); eGFR For African Americans > 60 (> 60); eGFR For Non-African Americans > 60 (> 60)
[2021-03-31] MEDS: Ascorbic Acid 500 MG TABLET PO SCH (08:02)
[2021-03-31] MEDS: Magnesium Oxide 400 MG TABLET PO SCH (08:02)
[2021-03-31] MEDS: *HR* Rivaroxaban 10 MG TABLET PO SCH (08:02)
[2021-03-31] MEDS: Doxycycline 100 MG CAPSULE PO SCH ×2 (08:02→21:20)
[2021-03-31] MEDS: Cefepime HCl 1,000 MG in Water for inj. (sterile) 10 ML IVP SCH (08:16)
[2021-03-31] MEDS: Insulin DETEMIR 100 UNIT/ML X5UNITS SUBQ SCH ×2 (08:17→21:21)
[2021-03-31] MEDS: Insulin LISPRO 300 UNITS/3 ML VIAL SUBQ SCH ×4 (08:19→21:21)
[2021-03-31 12:31] LABS: Bacteria,Urine Few per hpf (None-Few); Bilirubin,Urine Negative (Negative); Blood,Urine Large (Negative); Clarity,Urine Turbid (Clear); Color,Urine Light-Orange (Yellow); Glucose,Urine (UA) 150 mg/dL (Normal); Hyaline Casts,Urine Few per lpf (None Seen); Ketones,Urine Negative (Negative); Leukocyte Esterase,Urine Large (Negative); Nitrite,Urine Negative (Negative); Protein,Urine 50 mg/dL (Neg-Trace); RBC,Urine TNTC per hpf (0-3); Specific Gravity,Urine 1.016 (1.010-1.025); Squamous Epithelial Cell,Urine Few per hpf (None-Few); Urobilinogen,Urine Normal (Normal); WBC,Urine TNTC per hpf (0-3)
[2021-04-01 02:00] LABS: Basophils # 0.1 K/mcL (0.0-0.2); Basophils % 0.5 %; Eosinophils # 0.1 K/mcL (0.0-0.6); Eosinophils % 0.8 %; Hemoglobin 10.1 g/dL (11.5-15.4); Lymphocytes # 1.8 K/mcL (0.6-4.6); Lymphocytes % 16.1 %; Mean Corpuscular HGB Conc 29.7 g/dL (31.6-35.5); Mean Corpuscular Hemoglobin 26.8 pg (28.0-33.3); Mean Corpuscular Volume 90.2 fL (83.0-100.0); Monocytes # 0.7 K/mcL (0.0-1.3); Monocytes % 6.6 %; Neutrophils # 8.3 K/mcL (1.6-8.9); Platelet Count 393 K/mcL (140-400); Red Blood Count 3.77 M/mcL (3.82-4.97); Red Cell Distribution Width 13.9 % (11.5-14.5)
[2021-04-01 02:20] LABS: BUN/Creatinine Ratio 16 (6-26); Blood Urea Nitrogen 17 mg/dL (8-23); Calcium 8.5 mg/dL (8.6-10.3); Carbon Dioxide 29 mEq/L (23-29); Chloride 102 mEq/L (98-107); Glucose 210 mg/dL (70-105); Osmolality,Calculated 294 (280-300); Potassium 3.9 mEq/L (3.5-5.1); Sodium 138 mEq/L (136-145); eGFR For African Americans > 60 (> 60); eGFR For Non-African Americans 53 (> 60)
[2021-04-01] MEDS: Insulin LISPRO 300 UNITS/3 ML VIAL SUBQ SCH ×4 (08:03→21:25)
[2021-04-01] MEDS: Insulin DETEMIR 100 UNIT/ML X5UNITS SUBQ SCH ×2 (08:08→21:22)
[2021-04-01] MEDS: *HR* Rivaroxaban 10 MG TABLET PO SCH (08:09)
[2021-04-01] MEDS: Ascorbic Acid 500 MG TABLET PO SCH (08:09)
[2021-04-01] MEDS: Magnesium Oxide 400 MG TABLET PO SCH (08:09)
[2021-04-01] MEDS: Doxycycline 100 MG CAPSULE PO SCH (08:09)
[2021-04-01] MEDS ORDERED: levoFLOXacin 750 MG TABLET PO SCH (09:00)
[2021-04-02] MEDS: *HR* Rivaroxaban 10 MG TABLET PO SCH (08:40)
[2021-04-02] MEDS: Ascorbic Acid 500 MG TABLET PO SCH (08:40)
[2021-04-02] MEDS: Magnesium Oxide 400 MG TABLET PO SCH (08:40)
[2021-04-02] MEDS: Insulin LISPRO 300 UNITS/3 ML VIAL SUBQ SCH ×4 (08:42→20:47)
[2021-04-02] MEDS: Insulin DETEMIR 100 UNIT/ML X5UNITS SUBQ SCH ×2 (08:49→20:44)
[2021-04-02] MEDS: Gabapentin 300 MG CAPSULE PO SCH (14:53)
[2021-04-02] MEDS: DAPTOmycin 500 MG in 0.9 % Sodium Chloride 100 ML IVPB SCH (16:32)
[2021-04-02] MEDS: Gabapentin 400 MG CAPSULE PO SCH (20:45)
[2021-04-03] MEDS: Insulin LISPRO 300 UNITS/3 ML VIAL SUBQ SCH ×5 (08:54→21:57)
[2021-04-03] MEDS: Insulin DETEMIR 100 UNIT/ML X5UNITS SUBQ SCH ×2 (09:00→21:58)
[2021-04-03] MEDS: Ascorbic Acid 500 MG TABLET PO SCH (09:01)
[2021-04-03] MEDS: Magnesium Oxide 400 MG TABLET PO SCH (09:01)
[2021-04-03] MEDS: Gabapentin 300 MG CAPSULE PO SCH ×2 (09:01→15:47)
[2021-04-03] MEDS: *HR* Rivaroxaban 10 MG TABLET PO SCH (09:01)
[2021-04-03] MEDS: DAPTOmycin 500 MG in 0.9 % Sodium Chloride 100 ML IVPB SCH (15:48)
[2021-04-03] MEDS: Gabapentin 400 MG CAPSULE PO SCH (21:57)
[2021-04-04 05:40] LABS: BUN/Creatinine Ratio 20 (6-26); Blood Urea Nitrogen 19 mg/dL (8-23); Calcium 8.5 mg/dL (8.6-10.3); Carbon Dioxide 31 mEq/L (23-29); Chloride 103 mEq/L (98-107); Glucose 263 mg/dL (70-105); Magnesium 1.9 mg/dL (1.6-2.6); Osmolality,Calculated 297 (280-300); Phosphorous 4.2 mg/dL (2.7-4.5); Potassium 4.2 mEq/L (3.5-5.1); Sodium 138 mEq/L (136-145); eGFR For African Americans > 60 (> 60); eGFR For Non-African Americans 59 (> 60)
[2021-04-04] MEDS: Insulin LISPRO 300 UNITS/3 ML VIAL SUBQ SCH ×7 (08:55→22:01)
[2021-04-04] MEDS: Gabapentin 300 MG CAPSULE PO SCH ×2 (08:56→14:21)
[2021-04-04] MEDS: Magnesium Oxide 400 MG TABLET PO SCH (08:56)
[2021-04-04] MEDS: Insulin DETEMIR 100 UNIT/ML X5UNITS SUBQ SCH ×2 (08:56→22:01)
[2021-04-04] MEDS: Ascorbic Acid 500 MG TABLET PO SCH (08:56)
[2021-04-04] MEDS: *HR* Rivaroxaban 10 MG TABLET PO SCH (08:56)
[2021-04-04] MEDS: DAPTOmycin 500 MG in 0.9 % Sodium Chloride 100 ML IVPB SCH (16:09)
[2021-04-04] MEDS: Gabapentin 400 MG CAPSULE PO SCH (22:02)
[2021-04-05 07:15] VITALS: O2SAT 95
[2021-04-05] MEDS: *HR* Rivaroxaban 10 MG TABLET PO SCH (08:23)
[2021-04-05] MEDS: Ascorbic Acid 500 MG TABLET PO SCH (08:23)
[2021-04-05] MEDS: Magnesium Oxide 400 MG TABLET PO SCH (08:23)
[2021-04-05] MEDS: Gabapentin 300 MG CAPSULE PO SCH ×2 (08:24→15:36)
[2021-04-05] MEDS: Insulin DETEMIR 100 UNIT/ML X5UNITS SUBQ SCH ×2 (08:24→21:40)
[2021-04-05] MEDS: Insulin LISPRO 300 UNITS/3 ML VIAL SUBQ SCH ×7 (08:25→21:37)
[2021-04-05 11:03] VITALS: TEMP 98.2
[2021-04-05] MEDS: DAPTOmycin 500 MG in 0.9 % Sodium Chloride 100 ML IVPB SCH (15:37)
[2021-04-05 17:23] LABS: Adenovirus Not Detected (Not Detect); Bordetella Pertussis Not Detected (Not Detect); Chlamydophila pneumoniae Not Detected (Not Detect); Coronavirus 229E Not Detected (Not Detect); Coronavirus HKU1 Not Detected (Not Detect); Coronavirus NL63 Not Detected (Not Detect); Coronavirus OC43 Not Detected (Not Detect); Human Metapneumovirus Not Detected (Not Detect); Human Rhinovirus/Enterovirus Not Detected (Not Detect); Influenza A Subtype 2009 H1 Not Detected (Not Detect); Influenza B Not Detected (Not Detect); Mycoplasma pneumoniae Not Detected (Not Detect); Parainfluenza Virus 1 Not Detected (Not Detect); Parainfluenza Virus 2 Not Detected (Not Detect); Parainfluenza Virus 3 Not Detected (Not Detect); Parainfluenza Virus 4 Not Detected (Not Detect); Respiratory Syncytial Virus Not Detected (Not Detect); SARS-CoV-2 Not Detected (Not Detect)
[2021-04-05 20:08] VITALS: BP 140/69; PULSE 91
[2021-04-05] MEDS: Gabapentin 400 MG CAPSULE PO SCH (21:36)
== END 2021-04-05 10:30 | disposition critical access hospital (66) | DRG 854 ==
LOC: 3ANU 17:59 → EMEROOARM 17:59 → SUATTDRO 21:42 → 3ANU 23:26 → SUATTDRO 03-28 20:11
PROVIDERS: ADMIT Student in an Organized Health Care Education/Training Program; ATTEND Internal Medicine

== ENCOUNTER 2021-05-01 09:08 | Inpatient (IN) ==
[~2021-05-01 09:08] MED LIST: Acetaminophen IV 1,000 MG/100 ML BAG IVPB ONE; Famotidine 20 MG/2 ML VIAL IVP ONE; Ringers Solution, Lactated 1,000 ML IVC ONE
[2021-05-01] MEDS ORDERED: levoFLOXacin 500 MG/100 ML 500 MG/100 ML BAG IVPB ONE ×2 (09:33→17:43)
[2021-05-01] MEDS ORDERED: Nitroglycerin 0.4 MG TAB.SUBL SL PRN (09:55)
[2021-05-01] MEDS ORDERED: Naloxone 0.4 MG/ML INJ IVP PRN ×2 (09:55→17:18)
[2021-05-01] MEDS ORDERED: Ondansetron 4 MG/2 ML VIAL IVP PRN (09:55)
[2021-05-01] MEDS ORDERED: *HR* OxyCODONE Immed Rel 5 MG TABLET PO PRN (09:55)
[2021-05-01] MEDS ORDERED: Albuterol 2.5 MG/3 ML NEBULIZER IH PRN (09:55)
[2021-05-01] MEDS ORDERED: Isovue-300 50ML VIAL ONE (11:34)
[2021-05-01] MEDS: *HR* FentaNYL (PF) 100 MCG/2 ML VIAL IVP PRN ×4 (13:10→13:30)
[2021-05-01] MEDS: *HR* HYDROcodone/Acet 5/325 mg TABLET PO PRN ×2 (13:37→17:36)
[2021-05-01] MEDS ORDERED: *HR* Labetalol 20 MG/4 ML SYRINGE IVP PRN (14:27)
[2021-05-01 15:17] LABS: Basophils % 0.4 %; Hematocrit 34.4 % (35.3-44.9); Hemoglobin 10.1 g/dL (11.5-15.4); Immature Granulocytes % 1.2 % (0-4); Lymphocytes # 0.3 K/mcL (0.6-4.6); Lymphocytes % 3.6 %; Mean Corpuscular HGB Conc 29.4 g/dL (31.6-35.5); Mean Corpuscular Hemoglobin 26.2 pg (28.0-33.3); Mean Corpuscular Volume 89.4 fL (83.0-100.0); Mean Platelet Volume 8.7 fL (9.4-12.4); Monocytes # 0.1 K/mcL (0.0-1.3); Neutrophils # 7.8 K/mcL (1.6-8.9); Platelet Count 369 K/mcL (140-400); Red Blood Count 3.85 M/mcL (3.82-4.97); Red Cell Distribution Width 14.9 % (11.5-14.5); Segmented Neutrophils % 93.8 %; White Blood Count 8.3 K/mcL (4.3-11.1)
[2021-05-01] MEDS ORDERED: DAPTOmycin 300 MG in 0.9 % Sodium Chloride 100 ML IVPB SCH (16:00)
[2021-05-01 16:57] LABS: Bilirubin,Urine Negative (Negative); Blood,Urine Large (Negative); Clarity,Urine Ex.Turbid (Clear); Color,Urine Yellow (Yellow); Glucose,Urine (UA) Normal (Normal); Ketones,Urine 10 mg/dL (Negative); Leukocyte Esterase,Urine Large (Negative); Mucus,Urine Few per lpf (None-Few); Nitrite,Urine Negative (Negative); PH,Urine 5.5 pH Units (5.0-8.0); Protein,Urine 100 mg/dL (Neg-Trace); RBC,Urine TNTC per hpf (0-3); Specific Gravity,Urine 1.022 (1.010-1.025); Squamous Epithelial Cell,Urine Few per hpf (None-Few); Urobilinogen,Urine Normal (Normal); WBC,Urine TNTC per hpf (0-3)
[2021-05-01] MEDS ORDERED: Ondansetron ODT 4 MG TAB.RAPDIS SL PRN (17:18)
[2021-05-01] MEDS ORDERED: Celecoxib 100 MG CAPSULE PO PRN (17:41)
[2021-05-01] MEDS ORDERED: D5% in Water 1,000 ML IVC PRN (17:48)
[2021-05-01] MEDS ORDERED: *HR* Dextrose 50 % in Water (Vial) 50 ML VIAL IVP PRN (17:48)
[2021-05-01] MEDS ORDERED: Dextrose Gel 15 GM/37.5 ML TUBE PO PRN ×2 (17:48)
[2021-05-01] MEDS: Acetaminophen 325 MG TABLET PO PRN (18:43)
[2021-05-01] MEDS: Insulin LISPRO 300 UNITS/3 ML VIAL SUBQ SCH (18:44)
[2021-05-01] MEDS: Gabapentin 300 MG CAPSULE PO SCH (20:20)
[2021-05-01] MEDS: Insulin DETEMIR 100 UNIT/ML X5UNITS SUBQ SCH (20:20)
[2021-05-01] MEDS ORDERED: *HR* Heparin 5,000 UNIT/ML VIAL IVP PRN ×4 (21:55→22:07)
[2021-05-01] MEDS ORDERED: *HR* Heparin 5,000 UNIT/ML VIAL IVP ONE ×2 (21:55→22:07)
[2021-05-01] MEDS ORDERED: Perflutren Lipid Microsphere 1.3 ML in 0.9 % Sodium Chloride 8.7 ML IVP PRN (21:59)
[2021-05-01] MEDS ORDERED: Heparin 25,000UNIT/250ML 1/2NS 25,000 UNIT/250 ML IV.SOLN IVC SCH ×2 (22:00→22:15)
[2021-05-01 22:18] LABS: Hematocrit 29.1 % (35.3-44.9); Hemoglobin 8.9 g/dL (11.5-15.4); Mean Corpuscular HGB Conc 30.6 g/dL (31.6-35.5); Mean Corpuscular Volume 88.2 fL (83.0-100.0); Mean Platelet Volume 8.8 fL (9.4-12.4); Platelet Count 364 K/mcL (140-400); Red Cell Distribution Width 15.1 % (11.5-14.5)
[2021-05-01 22:26] LABS: White Blood Count 18.2 K/mcL (4.3-11.1)
[2021-05-01 22:27] LABS: Heparin anti-factor XA UFH < 0.04 IU/mL (0.30-0.70)
[2021-05-01 22:28] LABS: INR 1.4; Prothrombin Time 16.3 Seconds (9.4-12.1)
[2021-05-01 22:45] LABS: Activated Partial Thrombo Time 28.8 Seconds (26.0-36.0)
[2021-05-02 02:55] LABS: Basophils % 0.1 %; Hematocrit 30.4 % (35.3-44.9); Hemoglobin 9.1 g/dL (11.5-15.4); Immature Granulocytes % 0.6 % (0-4); Lymphocytes # 0.8 K/mcL (0.6-4.6); Lymphocytes % 5.3 %; Mean Corpuscular HGB Conc 29.9 g/dL (31.6-35.5); Mean Corpuscular Hemoglobin 26.7 pg (28.0-33.3); Mean Corpuscular Volume 89.1 fL (83.0-100.0); Mean Platelet Volume 8.9 fL (9.4-12.4); Monocytes # 0.8 K/mcL (0.0-1.3); Monocytes % 4.9 %; Neutrophils # 13.8 K/mcL (1.6-8.9); Platelet Count 355 K/mcL (140-400); Red Blood Count 3.41 M/mcL (3.82-4.97); Red Cell Distribution Width 15.1 % (11.5-14.5); Segmented Neutrophils % 89.1 %; White Blood Count 15.5 K/mcL (4.3-11.1)
[2021-05-02 03:17] LABS: Calcium 8.4 mg/dL (8.6-10.3); Potassium 5.1 mEq/L (3.5-5.1)
[2021-05-02] MEDS: *HR* HYDROcodone/Acet 5/325 mg TABLET PO PRN ×2 (05:33→21:09)
[2021-05-02] MEDS ORDERED: 0.9 % Sodium Chloride 1,000 ML IVC SCH (07:30)
[2021-05-02 08:55] LABS: Acinetobacter baumannii by PCR Not Detected (Not Detect); Candida albicans by PCR Not Detected (Not Detect); Candida glabrata by PCR Not Detected (Not Detect); Candida krusei by PCR Not Detected (Not Detect); Candida parapsilosis by PCR Not Detected (Not Detect); Candida tropicalis by PCR Not Detected (Not Detect); Enterobacter cloacae Cmplx PCR Not Detected (Not Detect); Enterobacteriaceae by PCR Not Detected (Not Detect); Enterococcus by PCR DETECTED (Not Detect); Escherichia coli by PCR Not Detected (Not Detect); Klebsiella oxytoca by PCR Not Detected (Not Detect); Klebsiella pneumoniae by PCR Not Detected (Not Detect); Proteus by PCR Not Detected (Not Detect); Pseudomonas aeruginosa by PCR Not Detected (Not Detect); Serratia marcescens by PCR Not Detected (Not Detect); Staphylococcus aureus by PCR Not Detected (Not Detect); Staphylococcus by PCR Not Detected (Not Detect); Streptococcus agalactiae(B)PCR Not Detected (Not Detect); Streptococcus by PCR Not Detected (Not Detect); Streptococcus pneumoniae PCR Not Detected (Not Detect); Streptococcus pyogenes (A) PCR Not Detected (Not Detect); vanA/B Vancomycin-Resist Genes Not Detected (Not Detect)
[2021-05-02] MEDS ORDERED: levoFLOXacin 750 MG/150 ML 750 MG/150 ML BAG IVPB SCH (09:00)
[2021-05-02] MEDS ORDERED: *HR* Rivaroxaban 10 MG TABLET PO SCH (09:00)
[2021-05-02] MEDS: Insulin LISPRO 300 UNITS/3 ML VIAL SUBQ SCH ×3 (09:01→17:27)
[2021-05-02] MEDS: Gabapentin 300 MG CAPSULE PO SCH ×3 (09:02→20:45)
[2021-05-02] MEDS: DAPTOmycin 500 MG in 0.9 % Sodium Chloride 100 ML IVPB SCH (14:37)
[2021-05-02] MEDS: Acetaminophen 325 MG TABLET PO PRN (15:44)
[2021-05-02] MEDS: Insulin DETEMIR 100 UNIT/ML X5UNITS SUBQ SCH (20:51)
[2021-05-03 01:31] LABS: Hematocrit 30.3 % (35.3-44.9); Hemoglobin 9.1 g/dL (11.5-15.4); Mean Corpuscular Hemoglobin 26.4 pg (28.0-33.3); Mean Corpuscular Volume 87.8 fL (83.0-100.0); Mean Platelet Volume 8.5 fL (9.4-12.4); Platelet Count 332 K/mcL (140-400); Red Blood Count 3.45 M/mcL (3.82-4.97); Red Cell Distribution Width 15.2 % (11.5-14.5); White Blood Count 13.9 K/mcL (4.3-11.1)
[2021-05-03 01:57] LABS: Calcium 8.2 mg/dL (8.6-10.3); Potassium 4.5 mEq/L (3.5-5.1)
[2021-05-03 02:03] LABS: D-Dimer 1901 ng/mLFEU (0-500); Fibrinogen 776 mg/dL (169-393)
[2021-05-03] MEDS: *HR* Enoxaparin 40 MG/0.4 ML SYRINGE SQ SCH (05:00)
[2021-05-03] MEDS: Acetaminophen 325 MG TABLET PO PRN ×2 (05:13→16:41)
[2021-05-03] MEDS ORDERED: Regadenoson 0.4 MG/5 ML SYRINGE IVP ONE (06:08)
[2021-05-03] MEDS ORDERED: Ipratropium 1 PUFF INHALER IH PRN (07:43)
[2021-05-03] MEDS: Insulin LISPRO 300 UNITS/3 ML VIAL SUBQ SCH ×4 (10:03→20:34)
[2021-05-03] MEDS: Gabapentin 300 MG CAPSULE PO SCH ×3 (10:04→20:34)
[2021-05-03] MEDS: *HR* HYDROcodone/Acet 5/325 mg TABLET PO PRN (10:19)
[2021-05-03 11:03] LABS: Albumin 2.9 g/dL (3.5-5.7); Albumin/Globulin Ratio 0.9 (1.1-2.2); Bilirubin,Direct 0.1 mg/dL (0.0-0.2); Bilirubin,Indirect 0.2 mg/dL (0.0-1.0); Bilirubin,Total 0.3 mg/dL (0.3-1.0); Globulin 3.4 g/dL (2.4-3.5); Magnesium 1.8 mg/dL (1.6-2.6); Total Protein 6.3 g/dL (6.4-8.9)
[2021-05-03] MEDS: Metoprolol XL (24 HR) Succ 25 MG TAB.ER.24H PO SCH (13:02)
[2021-05-03] MEDS: Aspirin 81 MG TAB.CHEW PO SCH (13:02)
[2021-05-03] MEDS: DAPTOmycin 500 MG in 0.9 % Sodium Chloride 100 ML IVPB SCH (13:03)
[2021-05-03] MEDS ORDERED: Remdesivir 200 MG in 0.9 % Sodium Chloride 100 ML IVPB ONE (15:18)
[2021-05-03] MEDS: Insulin DETEMIR 100 UNIT/ML X5UNITS SUBQ SCH (20:35)
[2021-05-04 03:29] LABS: Albumin 2.7 g/dL (3.5-5.7); Albumin/Globulin Ratio 0.7 (1.1-2.2); Bilirubin,Direct 0.1 mg/dL (0.0-0.2); Bilirubin,Indirect 0.2 mg/dL (0.0-1.0); Bilirubin,Total 0.3 mg/dL (0.3-1.0); Globulin 3.8 g/dL (2.4-3.5); Total Protein 6.5 g/dL (6.4-8.9)
[2021-05-04] MEDS: *HR* Enoxaparin 40 MG/0.4 ML SYRINGE SQ SCH (05:28)
[2021-05-04 09:15] LABS: Basophils % 0.1 %; Hematocrit 29.8 % (35.3-44.9); Lymphocytes # 0.6 K/mcL (0.6-4.6); Lymphocytes % 7.7 %; Mean Corpuscular HGB Conc 30.2 g/dL (31.6-35.5); Mean Corpuscular Hemoglobin 26.6 pg (28.0-33.3); Mean Corpuscular Volume 88.2 fL (83.0-100.0); Mean Platelet Volume 8.7 fL (9.4-12.4); Monocytes # 0.6 K/mcL (0.0-1.3); Monocytes % 7.1 %; Neutrophils # 6.8 K/mcL (1.6-8.9); Platelet Count 352 K/mcL (140-400); Red Blood Count 3.38 M/mcL (3.82-4.97); Red Cell Distribution Width 15.1 % (11.5-14.5); Segmented Neutrophils % 84.1 %; White Blood Count 8.1 K/mcL (4.3-11.1)
[2021-05-04] MEDS: Insulin DETEMIR 100 UNIT/ML X5UNITS SUBQ SCH ×2 (09:28→21:14)
[2021-05-04] MEDS: Insulin LISPRO 300 UNITS/3 ML VIAL SUBQ SCH ×7 (09:29→21:12)
[2021-05-04 09:30] LABS: Calcium 8.4 mg/dL (8.6-10.3); Potassium 4.2 mEq/L (3.5-5.1)
[2021-05-04] MEDS: Metoprolol XL (24 HR) Succ 25 MG TAB.ER.24H PO SCH (09:31)
[2021-05-04] MEDS: Gabapentin 300 MG CAPSULE PO SCH ×3 (09:31→21:15)
[2021-05-04] MEDS: *HR* HYDROcodone/Acet 5/325 mg TABLET PO PRN (09:31)
[2021-05-04] MEDS: Aspirin 81 MG TAB.CHEW PO SCH (09:31)
[2021-05-04] MEDS: DAPTOmycin 500 MG in 0.9 % Sodium Chloride 100 ML IVPB SCH (17:15)
[2021-05-04] MEDS: Remdesivir 100 MG in 0.9 % Sodium Chloride 100 ML IVPB SCH (17:16)
[2021-05-04] MEDS: *HR* Rivaroxaban 10 MG TABLET PO SCH (17:17)
[2021-05-05 02:25] LABS: Basophils % 0.1 %; Hematocrit 29.9 % (35.3-44.9); Hemoglobin 9.1 g/dL (11.5-15.4); Immature Granulocytes % 0.8 % (0-4); Lymphocytes # 0.9 K/mcL (0.6-4.6); Lymphocytes % 11.6 %; Mean Corpuscular HGB Conc 30.4 g/dL (31.6-35.5); Mean Corpuscular Hemoglobin 26.9 pg (28.0-33.3); Mean Corpuscular Volume 88.5 fL (83.0-100.0); Mean Platelet Volume 8.9 fL (9.4-12.4); Monocytes # 0.7 K/mcL (0.0-1.3); Monocytes % 8.9 %; Platelet Count 381 K/mcL (140-400); Red Blood Count 3.38 M/mcL (3.82-4.97); Red Cell Distribution Width 15.1 % (11.5-14.5); Segmented Neutrophils % 78.6 %; White Blood Count 7.6 K/mcL (4.3-11.1)
[2021-05-05 02:43] LABS: Calcium 8.3 mg/dL (8.6-10.3); Phosphorous 3.8 mg/dL (2.7-4.5); Potassium 4.3 mEq/L (3.5-5.1)
[2021-05-05 02:44] LABS: Albumin 2.8 g/dL (3.5-5.7); Albumin/Globulin Ratio 0.8 (1.1-2.2); Bilirubin,Direct 0.1 mg/dL (0.0-0.2); Bilirubin,Indirect 0.1 mg/dL (0.0-1.0); Bilirubin,Total 0.2 mg/dL (0.3-1.0); Globulin 3.6 g/dL (2.4-3.5); Total Protein 6.4 g/dL (6.4-8.9)
[2021-05-05] MEDS: Insulin LISPRO 300 UNITS/3 ML VIAL SUBQ SCH ×7 (09:58→21:15)
[2021-05-05] MEDS: Insulin DETEMIR 100 UNIT/ML X5UNITS SUBQ SCH ×2 (09:58→21:16)
[2021-05-05] MEDS: Gabapentin 300 MG CAPSULE PO SCH ×3 (10:00→21:17)
[2021-05-05] MEDS: Ascorbic Acid 500 MG TABLET PO SCH (10:00)
[2021-05-05] MEDS: Cholecalciferol (D-3) 1,000 UNIT (25MCG) TABLET PO SCH (10:00)
[2021-05-05] MEDS: Metoprolol XL (24 HR) Succ 25 MG TAB.ER.24H PO SCH (10:00)
[2021-05-05] MEDS: Aspirin 81 MG TAB.CHEW PO SCH (10:00)
[2021-05-05] MEDS: DAPTOmycin 500 MG in 0.9 % Sodium Chloride 100 ML IVPB SCH (12:30)
[2021-05-05] MEDS: *HR* HYDROcodone/Acet 5/325 mg TABLET PO PRN (12:30)
[2021-05-05] MEDS: *HR* Rivaroxaban 10 MG TABLET PO SCH (18:12)
[2021-05-05] MEDS: Remdesivir 100 MG in 0.9 % Sodium Chloride 100 ML IVPB SCH (18:14)
[2021-05-06 01:27] LABS: Basophils % 0.1 %; Hematocrit 29.4 % (35.3-44.9); Hemoglobin 9.2 g/dL (11.5-15.4); Immature Granulocytes % 0.6 % (0-4); Lymphocytes # 1.1 K/mcL (0.6-4.6); Lymphocytes % 13.5 %; Mean Corpuscular HGB Conc 31.3 g/dL (31.6-35.5); Mean Corpuscular Hemoglobin 26.7 pg (28.0-33.3); Mean Corpuscular Volume 85.5 fL (83.0-100.0); Mean Platelet Volume 8.8 fL (9.4-12.4); Monocytes # 0.6 K/mcL (0.0-1.3); Monocytes % 7.4 %; Neutrophils # 6.3 K/mcL (1.6-8.9); Platelet Count 428 K/mcL (140-400); Red Blood Count 3.44 M/mcL (3.82-4.97); Red Cell Distribution Width 15.1 % (11.5-14.5); Segmented Neutrophils % 78.4 %; White Blood Count 8.1 K/mcL (4.3-11.1)
[2021-05-06 01:51] LABS: Albumin 2.9 g/dL (3.5-5.7); Albumin/Globulin Ratio 0.8 (1.1-2.2); Bilirubin,Direct 0.1 mg/dL (0.0-0.2); Bilirubin,Indirect 0.1 mg/dL (0.0-1.0); Bilirubin,Total 0.2 mg/dL (0.3-1.0); Globulin 3.5 g/dL (2.4-3.5); Total Protein 6.4 g/dL (6.4-8.9)
[2021-05-06 01:55] LABS: BUN/Creatinine Ratio 25 (6-26); Blood Urea Nitrogen 27 mg/dL (8-23); Calcium 8.2 mg/dL (8.6-10.3); Carbon Dioxide 25 mEq/L (23-29); Chloride 101 mEq/L (98-107); Glucose 253 mg/dL (70-105); Osmolality,Calculated 296 (280-300); Potassium 4.1 mEq/L (3.5-5.1); Sodium 136 mEq/L (136-145); eGFR For African Americans > 60 (> 60); eGFR For Non-African Americans 52 (> 60)
[2021-05-06] MEDS: Cholecalciferol (D-3) 1,000 UNIT (25MCG) TABLET PO SCH (09:03)
[2021-05-06] MEDS: Metoprolol XL (24 HR) Succ 25 MG TAB.ER.24H PO SCH (09:03)
[2021-05-06] MEDS: Gabapentin 300 MG CAPSULE PO SCH ×3 (09:03→19:36)
[2021-05-06] MEDS: Aspirin 81 MG TAB.CHEW PO SCH (09:03)
[2021-05-06] MEDS: Ascorbic Acid 500 MG TABLET PO SCH (09:03)
[2021-05-06] MEDS: Insulin LISPRO 300 UNITS/3 ML VIAL SUBQ SCH ×7 (09:04→19:47)
[2021-05-06] MEDS: Insulin DETEMIR 100 UNIT/ML X5UNITS SUBQ SCH ×2 (09:05→19:37)
[2021-05-06] MEDS: *HR* HYDROcodone/Acet 5/325 mg TABLET PO PRN (10:00)
[2021-05-06] MEDS: DAPTOmycin 500 MG in 0.9 % Sodium Chloride 100 ML IVPB SCH (12:27)
[2021-05-06] MEDS: *HR* Rivaroxaban 10 MG TABLET PO SCH (17:15)
[2021-05-06] MEDS: Remdesivir 100 MG in 0.9 % Sodium Chloride 100 ML IVPB SCH (17:16)
[2021-05-06] MEDS ORDERED: Benzonatate 100 MG CAPSULE PO PRN (20:59)
[2021-05-06] MEDS ORDERED: Menthol 1 EACH LOZENGE PO PRN (20:59)
[2021-05-07 05:35] LABS: Hematocrit 30.6 % (35.3-44.9); Hemoglobin 9.5 g/dL (11.5-15.4); Mean Corpuscular Hemoglobin 26.8 pg (28.0-33.3); Mean Corpuscular Volume 86.4 fL (83.0-100.0); Mean Platelet Volume 8.6 fL (9.4-12.4); Platelet Count 387 K/mcL (140-400); Red Blood Count 3.54 M/mcL (3.82-4.97); Red Cell Distribution Width 14.9 % (11.5-14.5); Segmented Neutrophils % 71.2 %; White Blood Count 7.4 K/mcL (4.3-11.1)
[2021-05-07 05:36] LABS: Basophils % 0.1 %; Immature Granulocytes % 0.9 % (0-4); Lymphocytes # 1.4 K/mcL (0.6-4.6); Lymphocytes % 19.1 %; Monocytes # 0.7 K/mcL (0.0-1.3); Monocytes % 8.7 %; Neutrophils # 5.3 K/mcL (1.6-8.9)
[2021-05-07 05:53] LABS: BUN/Creatinine Ratio 21 (6-26); Blood Urea Nitrogen 23 mg/dL (8-23); Calcium 8.3 mg/dL (8.6-10.3); Carbon Dioxide 28 mEq/L (23-29); Chloride 103 mEq/L (98-107); Glucose 164 mg/dL (70-105); Osmolality,Calculated 293 (280-300); Potassium 3.9 mEq/L (3.5-5.1); Sodium 138 mEq/L (136-145); eGFR For African Americans > 60 (> 60); eGFR For Non-African Americans 51 (> 60)
[2021-05-07 05:59] LABS: Albumin 2.9 g/dL (3.5-5.7); Albumin/Globulin Ratio 0.9 (1.1-2.2); Bilirubin,Direct 0.1 mg/dL (0.0-0.2); Bilirubin,Indirect 0.1 mg/dL (0.0-1.0); Bilirubin,Total 0.2 mg/dL (0.3-1.0); Globulin 3.2 g/dL (2.4-3.5); Total Protein 6.1 g/dL (6.4-8.9)
[2021-05-07] MEDS: Ascorbic Acid 500 MG TABLET PO SCH (08:47)
[2021-05-07] MEDS: Metoprolol XL (24 HR) Succ 25 MG TAB.ER.24H PO SCH (08:47)
[2021-05-07] MEDS: Cholecalciferol (D-3) 1,000 UNIT (25MCG) TABLET PO SCH (08:47)
[2021-05-07] MEDS: Aspirin 81 MG TAB.CHEW PO SCH (08:48)
[2021-05-07] MEDS: Gabapentin 300 MG CAPSULE PO SCH ×3 (08:48→19:51)
[2021-05-07] MEDS: Insulin LISPRO 300 UNITS/3 ML VIAL SUBQ SCH ×7 (08:52→19:52)
[2021-05-07] MEDS: Insulin DETEMIR 100 UNIT/ML X5UNITS SUBQ SCH ×2 (08:56→19:52)
[2021-05-07] MEDS: DAPTOmycin 500 MG in 0.9 % Sodium Chloride 100 ML IVPB SCH (12:23)
[2021-05-07 14:28] VITALS: BP 154/75; PULSE 69; TEMP 98.4; O2SAT 96
[2021-05-07] MEDS ORDERED: Ampicillin 2,000 MG in 0.9 % Sodium Chloride Mini Bag 100 ML IVPB SCH (16:00)
[2021-05-07] MEDS: Remdesivir 100 MG in 0.9 % Sodium Chloride 100 ML IVPB SCH (16:04)
[2021-05-07] MEDS: *HR* Rivaroxaban 10 MG TABLET PO SCH (17:27)
== END 2021-05-07 20:34 | disposition other institution (70) | DRG 853 ==
LOC: SAMDAY 09:08 → 3BNU 09:08 → SUATTDRO 05-03 15:38
PROVIDERS: ADMIT Internal Medicine; ATTEND Internal Medicine

== ENCOUNTER 2021-05-14 16:43 | Inpatient (IN) ==
[2021-05-15] MEDS ORDERED: Ondansetron 4 MG/2 ML VIAL IVP PRN (04:38)
[2021-05-15] MEDS ORDERED: Naloxone 0.4 MG/ML INJ IVP PRN (04:38)
[2021-05-15] MEDS ORDERED: *HR* Dextrose 50 % in Water (Vial) 50 ML VIAL IVP PRN (05:21)
[2021-05-15] MEDS ORDERED: D5% in Water 1,000 ML IVC PRN (05:21)
[2021-05-15] MEDS ORDERED: Dextrose Gel 15 GM/37.5 ML TUBE PO PRN ×2 (05:21)
[2021-05-15 05:43] LABS: Basophils % 0.2 %; Hematocrit 34.8 % (35.3-44.9); Hemoglobin 10.5 g/dL (11.5-15.4); Immature Granulocytes % 0.6 % (0-4); Lymphocytes % 8.5 %; Mean Corpuscular HGB Conc 30.2 g/dL (31.6-35.5); Mean Corpuscular Hemoglobin 25.5 pg (28.0-33.3); Mean Corpuscular Volume 84.7 fL (83.0-100.0); Mean Platelet Volume 8.8 fL (9.4-12.4); Monocytes # 0.7 K/mcL (0.0-1.3); Monocytes % 5.5 %; Neutrophils # 10.3 K/mcL (1.6-8.9); Platelet Count 442 K/mcL (140-400); Red Blood Count 4.11 M/mcL (3.82-4.97); Red Cell Distribution Width 14.8 % (11.5-14.5); Segmented Neutrophils % 85.2 %; White Blood Count 12.1 K/mcL (4.3-11.1)
[2021-05-15 05:47] LABS: INR 1.3; Prothrombin Time 15.3 Seconds (9.4-12.1)
[2021-05-15 06:01] LABS: Alanine Aminotransferase 8 Units/L (7-52); Albumin 3.5 g/dL (3.5-5.7); Albumin/Globulin Ratio 0.9 (1.1-2.2); Alkaline Phosphatase 48 Units/L (34-104); Aspartate Amino Transferase 9 Units/L (13-39); BUN/Creatinine Ratio 24 (6-26); Bilirubin,Total 0.5 mg/dL (0.3-1.0); Blood Urea Nitrogen 23 mg/dL (8-23); Calcium 9.1 mg/dL (8.6-10.3); Carbon Dioxide 25 mEq/L (23-29); Chloride 97 mEq/L (98-107); Glucose 144 mg/dL (70-105); Magnesium 1.8 mg/dL (1.6-2.6); Osmolality,Calculated 290 (280-300); Potassium 3.8 mEq/L (3.5-5.1); Sodium 137 mEq/L (136-145); Total Protein 7.5 g/dL (6.4-8.9); Troponin I < 0.03 ng/mL (< 0.04); eGFR For African Americans > 60 (> 60); eGFR For Non-African Americans > 60 (> 60)
[2021-05-15] MEDS: levoFLOXacin 750 MG/150 ML 750 MG/150 ML BAG IVPB SCH (08:55)
[2021-05-15] MEDS: Insulin LISPRO 300 UNITS/3 ML VIAL SUBQ SCH ×4 (13:18→23:39)
[2021-05-15 13:23] LABS: Hematocrit 33.3 % (35.3-44.9); Hemoglobin 10.4 g/dL (11.5-15.4)
[2021-05-15 14:35] LABS: Bilirubin,Urine Negative (Negative); Blood,Urine Moderate (Negative); Budding Yeast,Urine Many per hpf (None Seen); Clarity,Urine Turbid (Clear); Color,Urine Light-Yellow (Yellow); Glucose,Urine (UA) Normal (Normal); Ketones,Urine >150 mg/dL (Negative); Leukocyte Esterase,Urine Moderate (Negative); Mucus,Urine Few per lpf (None-Few); Nitrite,Urine Negative (Negative); Protein,Urine 200 mg/dL (Neg-Trace); RBC,Urine TNTC per hpf (0-3); Specific Gravity,Urine 1.024 (1.010-1.025); Squamous Epithelial Cell,Urine Few per hpf (None-Few); Urobilinogen,Urine Normal (Normal); WBC,Urine 50-100 per hpf (0-3)
[2021-05-15] MEDS: DAPTOmycin 500 MG in 0.9 % Sodium Chloride 100 ML IVPB SCH (19:37)
[2021-05-15 21:05] LABS: Hematocrit 34.2 % (35.3-44.9); Hemoglobin 10.8 g/dL (11.5-15.4)
[2021-05-15] MEDS: Acetaminophen 325 MG TABLET PO PRN (23:51)
[2021-05-16] MEDS ORDERED: Ketorolac 30 MG/ML VIAL IVP ONE (04:34)
[2021-05-16] MEDS: DAPTOmycin 500 MG in 0.9 % Sodium Chloride 100 ML IVPB SCH (05:03)
[2021-05-16] MEDS ORDERED: *HR* Metoprolol 5 MG/5 ML VIAL IVP ONE (06:21)
[2021-05-16] MEDS: Insulin LISPRO 300 UNITS/3 ML VIAL SUBQ SCH ×4 (08:21→21:34)
[2021-05-16] MEDS: levoFLOXacin 750 MG/150 ML 750 MG/150 ML BAG IVPB SCH (08:23)
[2021-05-16 08:30] LABS: Basophils % 0.2 %; Hematocrit 33.5 % (35.3-44.9); Hemoglobin 10.4 g/dL (11.5-15.4); Immature Granulocytes % 0.7 % (0-4); Lymphocytes % 7.2 %; Mean Corpuscular Hemoglobin 26.1 pg (28.0-33.3); Monocytes % 7.2 %; Neutrophils # 11.3 K/mcL (1.6-8.9); Platelet Count 477 K/mcL (140-400); Red Blood Count 3.99 M/mcL (3.82-4.97); Red Cell Distribution Width 15.4 % (11.5-14.5); Segmented Neutrophils % 84.7 %; White Blood Count 13.4 K/mcL (4.3-11.1)
[2021-05-16] MEDS: Metoprolol XL (24 HR) Succ 25 MG TAB.ER.24H PO SCH (09:21)
[2021-05-16] MEDS: Lactobacillus 1 EACH CAP.SPRINK PO SCH ×2 (09:21→21:35)
[2021-05-16] MEDS: lisinopriL 5 MG TABLET PO SCH (09:22)
[2021-05-16] MEDS: Furosemide 40 MG TABLET PO SCH (09:22)
[2021-05-16 11:17] LABS: Calcium 8.8 mg/dL (8.6-10.3); Chloride 100 mEq/L (98-107); Glucose 209 mg/dL (70-105); Sodium 137 mEq/L (136-145)
[2021-05-16] MEDS: Acetaminophen 325 MG TABLET PO PRN (11:28)
[2021-05-16] MEDS: *HR* HYDROcodone/Acet 5/325 mg TABLET PO PRN (12:06)
[2021-05-16 12:57] LABS: BUN/Creatinine Ratio 24 (6-26); Blood Urea Nitrogen 24 mg/dL (8-23); Carbon Dioxide 17 mEq/L (23-29); Osmolality,Calculated 294 (280-300); eGFR For African Americans > 60 (> 60); eGFR For Non-African Americans 56 (> 60)
[2021-05-16] MEDS ORDERED: Isovue-370 500 ML BOTTLE IVP ONE (14:12)
[2021-05-17] MEDS: DAPTOmycin 500 MG in 0.9 % Sodium Chloride 100 ML IVPB SCH (05:04)
[2021-05-17] MEDS: Metoprolol XL (24 HR) Succ 25 MG TAB.ER.24H PO SCH (08:05)
[2021-05-17] MEDS: Lactobacillus 1 EACH CAP.SPRINK PO SCH ×2 (08:05→20:47)
[2021-05-17] MEDS: lisinopriL 5 MG TABLET PO SCH (08:06)
[2021-05-17] MEDS: levoFLOXacin 750 MG/150 ML 750 MG/150 ML BAG IVPB SCH (08:07)
[2021-05-17] MEDS: Insulin LISPRO 300 UNITS/3 ML VIAL SUBQ SCH ×4 (08:08→20:40)
[2021-05-17] MEDS: Furosemide 40 MG TABLET PO SCH (08:11)
[2021-05-17] MEDS: *HR* HYDROcodone/Acet 5/325 mg TABLET PO PRN ×2 (08:14→16:23)
[2021-05-17] MEDS: *HR* Enoxaparin 40 MG/0.4 ML SYRINGE SQ SCH (09:12)
[2021-05-17] MEDS: Nystatin SUSP 5 ML UD.LIQ PO SCH ×3 (12:28→20:47)
[2021-05-17] MEDS: Acetaminophen 325 MG TABLET PO PRN (12:35)
[2021-05-17 18:25] LABS: Basophils % 0.3 %; Hematocrit 32.9 % (35.3-44.9); Hemoglobin 10.3 g/dL (11.5-15.4); Immature Granulocytes % 0.6 % (0-4); Lymphocytes % 8.8 %; Mean Corpuscular HGB Conc 31.3 g/dL (31.6-35.5); Mean Corpuscular Hemoglobin 26.5 pg (28.0-33.3); Mean Corpuscular Volume 84.8 fL (83.0-100.0); Monocytes # 0.9 K/mcL (0.0-1.3); Monocytes % 7.8 %; Neutrophils # 9.7 K/mcL (1.6-8.9); Platelet Count 379 K/mcL (140-400); Red Blood Count 3.88 M/mcL (3.82-4.97); Red Cell Distribution Width 15.5 % (11.5-14.5); Segmented Neutrophils % 82.5 %; White Blood Count 11.7 K/mcL (4.3-11.1)
[2021-05-17 18:40] LABS: BUN/Creatinine Ratio 25 (6-26); Blood Urea Nitrogen 23 mg/dL (8-23); Calcium 8.5 mg/dL (8.6-10.3); Carbon Dioxide 25 mEq/L (23-29); Chloride 101 mEq/L (98-107); Glucose 187 mg/dL (70-105); Osmolality,Calculated 291 (280-300); Potassium 3.6 mEq/L (3.5-5.1); Sodium 136 mEq/L (136-145); eGFR For African Americans > 60 (> 60); eGFR For Non-African Americans > 60 (> 60)
[2021-05-18] MEDS: *HR* HYDROcodone/Acet 5/325 mg TABLET PO PRN ×3 (03:56→21:11)
[2021-05-18 06:16] LABS: Basophils % 0.4 %; Hematocrit 33.2 % (35.3-44.9); Immature Granulocytes % 0.9 % (0-4); Lymphocytes # 1.1 K/mcL (0.6-4.6); Lymphocytes % 9.9 %; Mean Corpuscular HGB Conc 30.1 g/dL (31.6-35.5); Mean Corpuscular Hemoglobin 25.3 pg (28.0-33.3); Mean Corpuscular Volume 84.1 fL (83.0-100.0); Mean Platelet Volume 8.9 fL (9.4-12.4); Monocytes # 0.8 K/mcL (0.0-1.3); Monocytes % 7.2 %; Neutrophils # 9.2 K/mcL (1.6-8.9); Platelet Count 362 K/mcL (140-400); Red Blood Count 3.95 M/mcL (3.82-4.97); Red Cell Distribution Width 15.7 % (11.5-14.5); Segmented Neutrophils % 81.6 %; White Blood Count 11.3 K/mcL (4.3-11.1)
[2021-05-18 06:35] LABS: BUN/Creatinine Ratio 24 (6-26); Blood Urea Nitrogen 25 mg/dL (8-23); Calcium 8.8 mg/dL (8.6-10.3); Carbon Dioxide 23 mEq/L (23-29); Chloride 100 mEq/L (98-107); Glucose 191 mg/dL (70-105); Osmolality,Calculated 290 (280-300); Potassium 3.6 mEq/L (3.5-5.1); Sodium 135 mEq/L (136-145); eGFR For African Americans > 60 (> 60); eGFR For Non-African Americans 54 (> 60)
[2021-05-18] MEDS: Nystatin SUSP 5 ML UD.LIQ PO SCH ×4 (10:02→21:12)
[2021-05-18] MEDS: Lactobacillus 1 EACH CAP.SPRINK PO SCH ×2 (10:02→21:11)
[2021-05-18] MEDS: Furosemide 40 MG TABLET PO SCH (10:02)
[2021-05-18] MEDS: Metoprolol XL (24 HR) Succ 25 MG TAB.ER.24H PO SCH (10:08)
[2021-05-18] MEDS: *HR* Enoxaparin 40 MG/0.4 ML SYRINGE SQ SCH (10:08)
[2021-05-18] MEDS: levoFLOXacin 750 MG/150 ML 750 MG/150 ML BAG IVPB SCH (10:08)
[2021-05-18] MEDS: lisinopriL 5 MG TABLET PO SCH (10:08)
[2021-05-18] MEDS: Insulin LISPRO 300 UNITS/3 ML VIAL SUBQ SCH ×4 (10:09→21:08)
[2021-05-18] MEDS ORDERED: Acetaminophen 325 MG TABLET PO PRN (14:29)
[2021-05-18] MEDS ORDERED: Sennosides 8.6 MG TABLET PO SCH (14:30)
[2021-05-18] MEDS: Fluconazole 200 MG/100 ML 200 MG/100 ML BAG IVPB SCH (16:00)
[2021-05-19] MEDS: Furosemide 40 MG TABLET PO SCH (10:17)
[2021-05-19] MEDS: Lactobacillus 1 EACH CAP.SPRINK PO SCH ×2 (10:18→21:14)
[2021-05-19] MEDS: Metoprolol XL (24 HR) Succ 25 MG TAB.ER.24H PO SCH (10:18)
[2021-05-19] MEDS: Nystatin SUSP 5 ML UD.LIQ PO SCH ×4 (10:18→21:14)
[2021-05-19] MEDS: Fluconazole 200 MG/100 ML 200 MG/100 ML BAG IVPB SCH (10:18)
[2021-05-19] MEDS: lisinopriL 5 MG TABLET PO SCH (10:18)
[2021-05-19] MEDS: levoFLOXacin 750 MG/150 ML 750 MG/150 ML BAG IVPB SCH (10:18)
[2021-05-19] MEDS: Insulin LISPRO 300 UNITS/3 ML VIAL SUBQ SCH ×4 (10:19→21:18)
[2021-05-19] MEDS: *HR* Enoxaparin 40 MG/0.4 ML SYRINGE SQ SCH (10:19)
[2021-05-19 11:28] LABS: Basophils % 0.4 %; Hematocrit 34.8 % (35.3-44.9); Hemoglobin 10.7 g/dL (11.5-15.4); Immature Granulocytes % 1.2 % (0-4); Lymphocytes # 1.1 K/mcL (0.6-4.6); Mean Corpuscular HGB Conc 30.7 g/dL (31.6-35.5); Mean Corpuscular Volume 84.5 fL (83.0-100.0); Mean Platelet Volume 9.1 fL (9.4-12.4); Monocytes # 0.8 K/mcL (0.0-1.3); Monocytes % 7.5 %; Neutrophils # 8.9 K/mcL (1.6-8.9); Platelet Count 348 K/mcL (140-400); Red Blood Count 4.12 M/mcL (3.82-4.97); Red Cell Distribution Width 15.9 % (11.5-14.5); Segmented Neutrophils % 80.9 %
[2021-05-19 11:40] LABS: BUN/Creatinine Ratio 25 (6-26); Blood Urea Nitrogen 27 mg/dL (8-23); Calcium 8.8 mg/dL (8.6-10.3); Carbon Dioxide 20 mEq/L (23-29); Chloride 99 mEq/L (98-107); Glucose 253 mg/dL (70-105); Osmolality,Calculated 290 (280-300); Potassium 3.7 mEq/L (3.5-5.1); Sodium 133 mEq/L (136-145); eGFR For African Americans > 60 (> 60); eGFR For Non-African Americans 53 (> 60)
[2021-05-19] MEDS: *HR* Enoxaparin 120 MG/0.8 ML SYRINGE SQ SCH (17:53)
[2021-05-19] MEDS: *HR* HYDROcodone/Acet 5/325 mg TABLET PO PRN (21:14)
[2021-05-20] MEDS: *HR* Enoxaparin 120 MG/0.8 ML SYRINGE SQ SCH ×2 (05:31→17:01)
[2021-05-20 06:02] LABS: Basophils % 0.4 %; Hemoglobin 10.2 g/dL (11.5-15.4); Immature Granulocytes % 1.3 % (0-4); Lymphocytes # 1.4 K/mcL (0.6-4.6); Mean Corpuscular HGB Conc 30.9 g/dL (31.6-35.5); Mean Corpuscular Volume 84.2 fL (83.0-100.0); Mean Platelet Volume 9.1 fL (9.4-12.4); Monocytes # 0.9 K/mcL (0.0-1.3); Monocytes % 9.3 %; Neutrophils # 6.9 K/mcL (1.6-8.9); Platelet Count 313 K/mcL (140-400); Red Blood Count 3.92 M/mcL (3.82-4.97); Red Cell Distribution Width 15.7 % (11.5-14.5); White Blood Count 9.3 K/mcL (4.3-11.1)
[2021-05-20 06:21] LABS: BUN/Creatinine Ratio 22 (6-26); Blood Urea Nitrogen 24 mg/dL (8-23); Calcium 8.6 mg/dL (8.6-10.3); Carbon Dioxide 22 mEq/L (23-29); Chloride 101 mEq/L (98-107); Glucose 185 mg/dL (70-105); Osmolality,Calculated 287 (280-300); Potassium 3.5 mEq/L (3.5-5.1); Sodium 134 mEq/L (136-145); eGFR For African Americans > 60 (> 60); eGFR For Non-African Americans 51 (> 60)
[2021-05-20] MEDS: levoFLOXacin 750 MG/150 ML 750 MG/150 ML BAG IVPB SCH (09:27)
[2021-05-20] MEDS: Insulin LISPRO 300 UNITS/3 ML VIAL SUBQ SCH ×4 (09:27→21:10)
[2021-05-20] MEDS: Nystatin SUSP 5 ML UD.LIQ PO SCH ×4 (09:28→21:09)
[2021-05-20] MEDS: Fluconazole 200 MG/100 ML 200 MG/100 ML BAG IVPB SCH (09:28)
[2021-05-20] MEDS: Metoprolol XL (24 HR) Succ 25 MG TAB.ER.24H PO SCH (09:29)
[2021-05-20] MEDS: Furosemide 40 MG TABLET PO SCH (09:29)
[2021-05-20] MEDS: lisinopriL 5 MG TABLET PO SCH (09:29)
[2021-05-20] MEDS: Lactobacillus 1 EACH CAP.SPRINK PO SCH ×2 (09:29→21:09)
[2021-05-20] MEDS: *HR* HYDROcodone/Acet 5/325 mg TABLET PO PRN ×2 (10:35→22:58)
[2021-05-20] MEDS: Ondansetron 4 MG/2 ML VIAL IVP PRN (12:45)
[2021-05-20] MEDS: Insulin DETEMIR 100 UNIT/ML X5UNITS SUBQ SCH (21:10)
[2021-05-21] MEDS: *HR* Enoxaparin 120 MG/0.8 ML SYRINGE SQ SCH (05:19)
[2021-05-21 07:43] LABS: Basophils % 0.4 %; Hematocrit 33.6 % (35.3-44.9); Hemoglobin 10.5 g/dL (11.5-15.4); Immature Granulocytes % 1.3 % (0-4); Lymphocytes # 1.2 K/mcL (0.6-4.6); Lymphocytes % 14.5 %; Mean Corpuscular HGB Conc 31.3 g/dL (31.6-35.5); Mean Corpuscular Hemoglobin 26.5 pg (28.0-33.3); Mean Corpuscular Volume 84.8 fL (83.0-100.0); Mean Platelet Volume 9.2 fL (9.4-12.4); Monocytes # 0.8 K/mcL (0.0-1.3); Monocytes % 9.1 %; Neutrophils # 6.3 K/mcL (1.6-8.9); Platelet Count 300 K/mcL (140-400); Red Blood Count 3.96 M/mcL (3.82-4.97); Red Cell Distribution Width 15.6 % (11.5-14.5); Segmented Neutrophils % 74.7 %; White Blood Count 8.4 K/mcL (4.3-11.1)
[2021-05-21 08:00] LABS: BUN/Creatinine Ratio 18 (6-26); Blood Urea Nitrogen 20 mg/dL (8-23); Calcium 8.7 mg/dL (8.6-10.3); Carbon Dioxide 23 mEq/L (23-29); Chloride 100 mEq/L (98-107); Glucose 213 mg/dL (70-105); Osmolality,Calculated 287 (280-300); Potassium 3.3 mEq/L (3.5-5.1); Sodium 134 mEq/L (136-145); eGFR For African Americans > 60 (> 60); eGFR For Non-African Americans 50 (> 60)
[2021-05-21] MEDS: lisinopriL 5 MG TABLET PO SCH (09:20)
[2021-05-21] MEDS: Insulin LISPRO 300 UNITS/3 ML VIAL SUBQ SCH ×4 (09:20→21:49)
[2021-05-21] MEDS: Nystatin SUSP 5 ML UD.LIQ PO SCH ×4 (09:20→21:49)
[2021-05-21] MEDS: Metoprolol XL (24 HR) Succ 25 MG TAB.ER.24H PO SCH (09:20)
[2021-05-21] MEDS: levoFLOXacin 750 MG TABLET PO SCH (09:20)
[2021-05-21] MEDS: Lactobacillus 1 EACH CAP.SPRINK PO SCH ×2 (09:20→21:49)
[2021-05-21] MEDS: Furosemide 40 MG TABLET PO SCH (09:20)
[2021-05-21] MEDS ORDERED: Potassium Chloride Elixir 20 MEQ/15 ML UDC PO ONE (11:10)
[2021-05-21] MEDS ORDERED: Isovue-370 500 ML BOTTLE IVP ONE (11:12)
[2021-05-21] MEDS ORDERED: 0.9 % Sodium Chloride 1,000 ML IVC SCH (11:15)
[2021-05-21] MEDS: *HR* HYDROcodone/Acet 5/325 mg TABLET PO PRN (12:20)
[2021-05-21] MEDS: Ondansetron 4 MG/2 ML VIAL IVP PRN (17:52)
[2021-05-21] MEDS ORDERED: *HR* Enoxaparin 120 MG/0.8 ML SYRINGE SQ SCH (18:00)
[2021-05-21] MEDS: Insulin DETEMIR 100 UNIT/ML X5UNITS SUBQ SCH (21:50)
[2021-05-22 06:20] VITALS: BP 125/83; PULSE 69; TEMP 97.7; O2SAT 99
[2021-05-22] MEDS: Metoprolol XL (24 HR) Succ 25 MG TAB.ER.24H PO SCH (08:39)
[2021-05-22] MEDS: Insulin LISPRO 300 UNITS/3 ML VIAL SUBQ SCH ×2 (08:39→11:41)
[2021-05-22] MEDS: Furosemide 40 MG TABLET PO SCH (08:39)
[2021-05-22] MEDS: levoFLOXacin 750 MG TABLET PO SCH (08:39)
[2021-05-22] MEDS: lisinopriL 5 MG TABLET PO SCH (08:39)
[2021-05-22] MEDS: Nystatin SUSP 5 ML UD.LIQ PO SCH (08:39)
[2021-05-22] MEDS: Lactobacillus 1 EACH CAP.SPRINK PO SCH (08:39)
[2021-05-22] MEDS ORDERED: *HR* Rivaroxaban 10 MG TABLET PO SCH (09:00)
[2021-05-22] MEDS: *HR* HYDROcodone/Acet 5/325 mg TABLET PO PRN (09:52)
[2021-05-22] MEDS: Ondansetron 4 MG/2 ML VIAL IVP PRN (09:54)
== END 2021-05-22 12:58 | disposition other institution (70) | DRG 871 ==
LOC: 3ANU → SUATTDRO 05-15 02:23 → OBSVTOIN 05-15 02:23
PROVIDERS: ADMIT Internal Medicine; ATTEND Internal Medicine